=== PATIENT | female | born 1965 | race Caucasian/White ===

== ENCOUNTER → 2016-03-24 | Outpatient (CLI) | payer BC, MEDICARE ==
[2016-03-24 12:46] VITALS: BP 102/61; PULSE 78; RESP 16; TEMP 98.5
--- NOTE | 2016-03-25 21:53 | P.PN ---
Subjective This is follow-up visit for this patient with a history of chronic low back pain , and opioid tolerance ,patient had intrathecal pain pump implanted several years ago, and patient was seen on 03/11/2016, because patient was hearing , the alarm of intrathecal pain pump, and the pump was interrogated and it showed that the pump was stalled, and the recommendation from the [employer] was to replace the intrathecal pain pump, and the pump was placed on the minimal dose, patient supposed to have intrathecal pain pump replaced/revision on 03/28/2016, but patient reported that for personal reasons , she cannot do it at that date and she wanted to be scheduled at different date, patient currently on fentanyl patch 50 g every 72 hours and Dilaudid 4 mg every 4 hours when necessary for breakthrough pain, patient reported , that after she placed the first fentanyl patch, she started feeling itching everywhere in her body (she has itching before she started the patch but the itching was increased ) and for this reason she removed the patch and she is currently using only Dilaudid 4 mg every 4-6 hours, patient reported that her pain with the current medication (Dilaudid 4 mg every 4 hours ) is well controlled, she denies any was thrown symptoms, she denies any rhinorrhea or abdominal pain or diarrhea, she feels good, and her mood is normal, she denies any muscle aches, she denies any irritability, and she feels that her pain is very well controlled with the Dilaudid only, patient preferred to delay her intrathecal pain pump revision and she is hoping that maybe she could stop using intrathecal pain medication, although this isn't patient will be seen in the pain clinic in 4 weeks, at that time if patient feels good we can delay the intrathecal pain pump revision, round before we do the revision we have to do that the dye study to check the patency of the intrathecal catheter, I discussed with the patient the risk of catheter occlusion, and patient understood the risk of delaying the intrathecal pain pump revision The intrathecal pain pump interrogated again and it showed patient currently on minimal infusion rate which is spent in in 0.59 g per day and bupivacaine 0.076 mg per day and baclofen 0.47 g per day and patient had residual volume 23.4 ml (the residual volume on 1226 was 23.5 mL ) Objective - Vital Signs Vital signs: Vital Signs Temp 98.5 F 03/24/16 12:34 Pulse 78 03/24/16 12:34 Resp 16 03/24/16 12:34 BP 102/61 03/24/16 12:34 Pulse Ox
== END | disposition home or self-care (01) ==
LOC: PNWHC3 11:56
PROVIDERS: ATTEND Specialist
DX: M54.5 Low back pain (principal); Z96.89 Presence of other specified functional implants; Z79.899 Other long term (current) drug therapy; Z79.891 Long term (current) use of opiate analgesic
CPT/HCPCS: 99211

== ENCOUNTER → 2016-05-05 | Outpatient (CLI) | payer MEDICARE ==
[2016-05-05 12:37] VITALS: BP 116/69; PULSE 90; RESP 18
--- NOTE | 2016-05-06 12:09 | P.PN ---
Subjective This is follow-up visit for this patient with a history of severe and chronic low back pain secondary to lumbar failed back surgery syndrome, opioid tolerance, patient had intrathecal pain pump implanted several years ago, and recently she developed malfunction of intrathecal pain pump on currently patient receiving fentanyl patch 50 g every 72 hours and Dilaudid 4 mg every 6 hours when necessary for breakthrough pain, and patient getting the minimum allowable dose of intrathecal medication to keep the intrathecal catheter patent , and to prevent closure of the intrathecal catheter, patient is still hesitant to have intrathecal pain pump revision, especially this period , because she has a lot of family issues prevented her from having any surgery, her mom recently diagnosed with cancer, and she has to take care of her mom, for this reason she preferred to continue to have the current pain medication, she denies any side effects of the medication and she reported the current regimen is helping her to control her pain, denies excessive drowsiness or sleepiness, denies suicidal ideation, and reports that the current pain medication is helping To control the pain and improve activity of daily living Physical Examinations : 1-Constitutiona : Cooperative , not in acute distress . 2-HEENT : nech ; supple , no Lymphadenopathy , no Thyromegaly , normal thyroid size . eyes : no ptosis , no icterus, no photophobia . ENT : normal of hearing , normal oropharynx , no Thrush . 3- Respiratory : Chest clear to auscultations Bilaterally , no wheezing , no Rhonchi . 4- Cardiovascular : regular rate and rhythem , S1 , S2 , no S3 , no S4. 5- Gastrointestinal : abdomen soft no tenderness , bowel sounds positive all four quadrents , no organomegally . 6- Genitourinary : Defferred . 7- neurologic : Cranial nerve II to XII intact , no focal neurological deffecit . 8-psychatric : alert , oriented X 3 , appropriate affect , intact judgment and insight . 9-Lymphatic : no Lymphadenopathy . 10- musculoskeltal : exams of the cervical spine = motor strength normal bilateral upper extremities facet loading test cervical area positive. exams of the Lumber spine = motor strength lower extremities ,thigh and legs .5/5 deep tendon reflexes : normal Knee Jerk , normal ankle Jerk . lumber facet Loading Test positive strait leg raising test positive at 30 degree , RT ,LT , Fabere test positive RT and positive LT . Range of motion: Range of motion in flexion of the lumbar spine 30 degrees Range of motion range of motion of extension of the lumbar spine 10 Sever tenderness over the Sacroiliac joint on the Right , and Left side Assessment and plan = Failed back surgery syndrome, malfunction of intrathecal pain pump, patient getting no intrathecal pain medication - chronic and current use of high-risk medication (Opioids). The patient was counseled about risk of opioid use, psychological risk associated with opioids and was orally counseled to not overuse , divert,or sell dictations to take medications as prescribed only , and to restore medication in safe location , and the patient counseled against driving while using narcotic medications, and also not to use alcohol or any illicit recreational drugs, the patient's verbalized understanding that the lack of compliance will result in failure to renew narcotic prescription and possible discharge from the clinic - diagnoses, prognosis, and treatment options including but not limited to physical therapy, surgical interventions, interventional therapies , and medication management including narcotics and adjuvant medication were discussed with the patient and all The questions answered -medication management =1-fentanyl patch 50 g every 72 hours dispense 10 with one refill 2-Dilaudid 4 mg every 6 hours dispensed 120 with one refill -procedure= revision of intrathecal pain pump and patient is ready to have the surgical intervention Objective - Vital Signs Vital signs: Vital Signs Temp Pulse 90 05/05/16 12:32 Resp 18 05/05/16 12:32 BP 116/69 05/05/16 12:32 Pulse Ox 97 05/05/16 12:32 Intake & Output 05/05/16 05/06/16 05/06/16 18:59 06:59 18:59 Weight 65.771 kg
== END | disposition home or self-care (01) ==
LOC: PNWHC3 12:06
PROVIDERS: ATTEND Specialist
DX: M96.1 Postlaminectomy syndrome, not elsewhere classified (principal); T85.615A Breakdown (mechanical) of other nervous system device, implant or graft, initial encounter; Z88.5 Allergy status to narcotic agent; Z79.891 Long term (current) use of opiate analgesic
CPT/HCPCS: 99211

== ENCOUNTER → 2016-07-28 | Outpatient (CLI) | payer MEDICARE ==
[2016-07-28 12:36] VITALS: BP 115/74; PULSE 87; RESP 16; TEMP 97.4
--- NOTE | 2016-07-29 14:14 | P.CONS ---
History of Present Illness - Reason for Consult Consult date: 07/28/16 - History of Present Illness This is follow-up visit for this 51 years old female chronic history of severe low back pain , Diagnosed with failed back surgery syndrome , and opioid tolerance , had intrathecal pain pump implanted several years ago , and recently she had malfunction of the pump , patient was not ready to have intrathecal pain pump replaced because she had family issues ,and we put patient on minimal infusion of the intrathecal pain pump, and I started patient on fentanyl patch 50 g every 72 hours and Dilaudid 4 mg every 4 hours, she reported that the current medication is not helping to control her pain , she had pain level was 7-8/10 , and patient wished to proceed with the replacement of the intrathecal pain pump , Past Medical History Past Medical History: Musculoskeletal Disorder Additional Past Medical History / Comment(s): migraines post procedure, chronic back pain, numbness and tingling down legs,deg. discs disease History of Any Multi-Drug Resistant Organisms: None Reported Past Surgical History: Appendectomy, Back Surgery, Tubal Ligation Additional Past Surgical History / Comment(s): exp. laparoscopy, oophorectomy and tubes removed,pain pump implant Past Anesthesia/Blood Transfusion Reactions: Motion Sickness Past Psychological History: Anxiety, Depression Smoking Status: Current every day smoker Past Alcohol Use History: Occasional Additional Past Alcohol Use History / Comment(s): smoker 40 years 1/2 ppd Past Drug Use History: None Reported - Past Family History Mother Additional Family Medical History / Comment(s): borderline diabetic Father Family Medical History: Cancer Additional Family Medical History / Comment(s): Medications and Allergies Home Medications Medication Instructions Recorded Confirmed Type Multivitamins, Thera [Multivitamin] 1 tab PO DAILY 08/17/13 07/28/16 History Sertraline HCl [Zoloft] 200 mg PO DAILY 08/08/15 07/28/16 History Allergies Allergy/AdvReac Type Severity Reaction Status Date / Time iodine Allergy Mild Unknown Verified 07/28/16 12:22 IVP DYE Allergy Mild Unknown Uncoded 07/28/16 12:22 Physical Exam Physical Examinations : 1-Constitutiona : Cooperative , not in acute distress . 2-HEENT : nech ; supple , no Lymphadenopathy , normal thyroid size . eyes : no ptosis , no icterus, no photophobia . ENT : normal of hearing , normal oropharynx , no Thrush . 3- Respiratory : Chest clear to auscultations Bilaterally , no wheezing , no Rhonchi . 4- Cardiovascular : regular rate and rhythem , S1 , S2 , no S3 , no S4. 5- Gastrointestinal : abdomen soft no tenderness , bowel sounds positive all four quadrents , no organomegally . 6- Genitourinary : Defferred . 7- neurologic : Cranial nerve II to XII intact , no focal neurological deffecit . 8-psychatric : alert , oriented X 3 , appropriate affect , intact judgment and insight . 9-Lymphatic : no Lymphadenopathy . 10- musculoskeltal : , exams of the Lumber spine = normal moter stegnth lower extremities ,thigh and legs .5/5 deep tendon reflexes : normal Knee Jerk , normal ankle Jerk . positive lumber facet Loading Test strait leg raising test positive at 30 degree , RT ,LT , Fabere test positive RT and positive LT . Assessment and Plan Plan: Assessment and plan=1-Failed back surgery syndrome and lumbar area. 2-malfunction of intrathecal pain pump, and the pain pump needs to be replaced, I have to confirm patency of the intrathecal catheter Have to do the dye study before we can proceed with the replacement of the pump, and this will be sure that the sitter is not the block Or clotted at the tip , She will be given prescription refill for fentanyl patch 50 g every 72 hours dispense 10 with one refill and Dilaudid 4 mg every 4 hours dispense 180 with 1 refill she will be seen the day of the dye study, if the catheter is patent and I will schedule patient to have intrathecal pain pump replaced Time with Patient: Less than 30
== END | disposition home or self-care (01) ==
LOC: PNWHC3 12:05
PROVIDERS: ATTEND Specialist
DX: T85.615A Breakdown (mechanical) of other nervous system device, implant or graft, initial encounter (principal); F32.9 Major depressive disorder, single episode, unspecified; F41.9 Anxiety disorder, unspecified; F17.200 Nicotine dependence, unspecified, uncomplicated; Z79.899 Other long term (current) drug therapy; Z91.048 Other nonmedicinal substance allergy status
CPT/HCPCS: 99211

== ENCOUNTER → 2016-09-22 | Outpatient (CLI) | payer MEDICARE ==
[~2016-09-22] MED LIST: LACTATED RINGERS 1,000 ML IV SCH
[2016-09-22 13:15] VITALS: PULSE 73; RESP 16
--- NOTE | 2016-10-02 09:03 | P.PN ---
Progress Note - Text Patient returns for followup for chronic back pain with radiation to legs, with intrathecal pump in place. Patient has an intrathecal pump which has been malfunctioning and severely overdosed her several months ago, and it is now on minimal settings. Patient continues on fentanyl patch and Dilaudid which is helping to some extent without side effects, but 50 mcg patch is very expensive for her and she is cutting them in half. Patient denies adverse drug effects from medications. Today, pt denies new-onset weakness, bowel/bladder incontinence, or any other signs or symptoms of cauda equina syndrome. There are no signs of acute intoxication, and no indications of medication diversion or overuse. In addition to above, 13-point review of systems is also negative for chest pain , shortness of breath, changes in vision, changes in hearing, new onset weakness , abdominal pain, diarrhea, extreme fatigue, malaise, fever, skin changes, homicidal or suicidal ideation, or bowel or bladder incontinence. Vital Signs: Reviewed in EMR Gen: WDWN, AAOx3, NAD HEENT: NCAT, EOMI, hearing grossly normal Pulm: resp unlabored Abd: soft, NT, ND Neck: supple, trachea midline ROM in flexion lumbar spine: reduced ROM in extension lumbar spine: reduced Lumbar paravertebral tenderness: + Facet loading: + bilateral SI joint tenderness: + Sam's test: neg Straight leg raise: + R side Neuro: CN II-XII grossly intact, muscle strength lower extremities PRESERVED Imaging: Reviewed in EMR Assessment: 1. lumbar PLPS 2. intrathecal pump in situ 3. chronic pain syndrome Plan: 1. Explanation: Opioid and psychological risk scores were reviewed. Diagnoses , prognoses, and multiple treatment options including but not limited to physical therapy, interventional therapies, adjuvant medical therapies, narcotic medication therapies, and surgery were discussed with the patient and all questions were answered to the patient's satisfaction. 2. Opioid agreement: Patient has previously signed narcotic agreement, and was orally counseled to not overuse, abuse, divert, or cell medications, and to take them as prescribed by only 1 healthcare provider. The patient was also counseled to store opioid medications in a safe and preferably locked location. Patient was also counseled against driving or operating heavy equipment while using narcotic medications and also to not use alcohol or any illicit or recreational drugs. The patient verbalized understanding that lack of compliance with any of the above and likely result in failure to renew narcotic prescriptions, possible discharge from the clinic, and possible legal ramifications thereafter if indicated. 3. Counseling: The patient was counseled extensively on SMOKING CESSATION, BODY MASS INDEX, EXERCISE. Specifically, the patient was instructed regarding the importance of smoking cessation, weight control, and exercise in the context of both chronic pain and overall health. 4. Procedures: IT pump myelogram next week 5. Consultations: None 6. Investigations: None 7. Medications: Dilaudid script given, patient to bring back fentanyl patch script at procedure appointment for further discussion 8. Disposition: f/u for dye study as ordered; if catheter patent, Dr. Walker will replace pump himself; if there are any catheter-related issues, patient will go to neurosurgery for pump revision.
== END | disposition home or self-care (01) ==
LOC: PNWHC3 12:53
PROVIDERS: ATTEND Anesthesiology
DX: G97.1 Other reaction to spinal and lumbar puncture (principal); G89.4 Chronic pain syndrome; Z97.8 Presence of other specified devices; Z79.899 Other long term (current) drug therapy
CPT/HCPCS: 99211

== ENCOUNTER 2016-10-02 08:40 | Day surgery (SDC) | payer MEDICARE ==
[2016-10-01 08:37] VITALS: BMI 28.3
[2016-10-02] MEDS ORDERED: LIDOCAINE 1% 20 ML VIAL (10MG/ML) FOR IV START INTRADERMA ONE (09:00)
[2016-10-02] MEDS ORDERED: LACTATED RINGERS 1,000 ML IV ONE (09:00)
[2016-10-02 09:04] LABS: Glucose,Whole Blood 158 mg/dL (75-99)
[2016-10-02 09:11] VITALS: RESP 16; TEMP 98.4
--- NOTE | 2016-10-02 09:47 | FL ---
Fluoroscopy History: Pain pump IV dye study Pain pump IV dye study. Dr. Hopkins. 41 sec fluoro. 4 images saved.
[2016-10-02] MEDS ORDERED: IV FLUID CONTINUATION 1,000 ML IV ONE (09:59)
[2016-10-02 10:20] VITALS: BP 98/54; PULSE 69
[2016-10-02] MEDS ORDERED: LACTATED RINGERS 1,000 ML IV SCH (10:45)
--- NOTE | 2016-10-02 13:05 | P.PCN ---
Date of Procedure: 10/02/16 Preoperative Diagnosis: Postoperative Diagnosis: Procedure(s) Performed: Implants: Surgeon: Jd Hopkins Pathology: none sent Condition: stable Disposition: PACU Indications for Procedure: Operative Findings: Description of Procedure: Preoperative diagnosis: 1- lumbar PLPS 2- S/P intrathecal pump placement, questionable overdose in the past Postoperative diagnosis: 1- Functional intrathecal delivery system 2- Catheter tip located in the intrathecal space PROCEDURE INDICATION: This is a 51-year-old female with an intrathecal pump in place currently receiving fentanyl, bupivacaine, and baclofen at minimum rate ( fentanyl 0.592 mcg/day) secondary to questionable IT pump overdose several months ago. Procedure was done today to evaluate the patency of the catheter as intrathecal pump replacement is planned at this time. Patient does not use any blood thinning medications. Anesthesia: Conscious sedation with Versed only PROCEDURE DESCRIPTION: The patient was seen and identified in the preoperative area. Risks, benefits, complications, and alternatives were discussed with the patient (including but not limited to incomplete pain relief, bleeding, infection, nerve damage, and allergies to medications), the patient agreed to proceed with the procedure and signed the consent after all questions were answered. Patient was taken to the OR and time out was completed to verify proper patient , position, laterality of pain, and allergies. Pt was placed in the prone position and the site over the IT pump was prepped with Chloraprep and draped sterilely. IV was started. Vital signs remained stable throughout the procedure. The pump study was done first. A fluoroscopic picture was taken and saved. Under live fluoroscopy, the rotors were seen to be moving appropriately and a rotation noted and saved, demonstrating normal functioning. Subsequently, the side port was accessed under sterile technique. About 1 ml of CSF was withdrawn through the side port. Subsequently, 5 ml of water soluble dye , omnipaque 300 was injected and an excellent myelogram was observed suggestive of appropriate location of the catheter tip, which was on the left side of the T11 vertebral level in the AP view; myelogram was noted in both AP and lateral views. A priming bolus of 0.123 ml was administered to clear the catheter of dye and the rate was again reset to minimum rate, i.e. fentanyl 0.592 mcg/day. DISPOSITION: The patient was placed in a supine position and transferred to the recovery area in a stable condition for observation and was discharged from the recovery room after meeting discharge criteria. Home discharge instructions given to the patient by the staff. The patient was reexamined prior to discharge and there were no issues. The patient will schedule a follow up in the clinic in 2-4 weeks; she will be rescheduled for a pump replacement in 4-6 weeks pending physician availability.
== END 2016-10-02 10:47 | disposition home or self-care (01) ==
LOC: ORPAIN 08:40
PROVIDERS: ATTEND Anesthesiology
DX: T85.890A Other specified complication of nervous system prosthetic devices, implants and grafts, initial encounter (principal); F45.8 Other somatoform disorders; G89.4 Chronic pain syndrome; M54.9 Dorsalgia, unspecified; Z79.891 Long term (current) use of opiate analgesic
CPT/HCPCS: 95990; 99152; 99153; J2250; Q9965

== ENCOUNTER 2016-11-11 10:57 | Day surgery (SDC) | payer MEDICARE ==
[2016-11-04 15:14] VITALS: BMI 28.3
[~2016-11-11 10:57] MED LIST changes: +DEXAMETHASONE SOD PHOSPHATE 10 MG/ML 1 ML VIAL IV ONE; +HYDROmorphone 1 MG/ML 1 ML SYRINGE IVP PRN; -LACTATED RINGERS 1,000 ML IV SCH; +LIDOCAINE 1% 20 ML VIAL (10MG/ML) FOR IV START INTRADERMA PRN; +ONDANSETRON 4 MG/2 ML VIAL IVP ONE; +SCOPOLAMINE 1.5MG/72HR PATCH TRANSDERM ONE
[2016-11-11] MEDS: LACTATED RINGERS 1,000 ML IV SCH ×2 (11:23→15:39)
[2016-11-11 11:24] LABS: Glucose,Whole Blood 89 mg/dL (75-99)
[2016-11-11] MEDS ORDERED: ePHEDrine SULFATE/0.9% NACL/PF 50 MG/5 ML SYRINGE IV ONE (12:45)
[2016-11-11] MEDS ORDERED: LIDOCAINE 1% INJ 10MG/ML (20 ML MDV) ONE (12:45)
[2016-11-11] MEDS ORDERED: fentaNYL (PF) 50 MCG/ML 2 ML AMP ONE (12:45)
[2016-11-11] MEDS ORDERED: PROPOFOL 10 MG/ML 20 ML VIAL IV ONE (12:45)
[2016-11-11] MEDS ORDERED: MIDAZOLAM 2 MG/2 ML VIAL ONE (12:45)
[2016-11-11] MEDS ORDERED: HYDROmorphone (PF) 1 MG/ML ONE (12:45)
[2016-11-11] MEDS ORDERED: SUCCINYLCHOLINE CHLORIDE 100 MG/5 ML SYR IV ONE (12:45)
[2016-11-11] MEDS ORDERED: BUPIVACAINE-EPI 0.5%-1:200,000 10 ML VIAL SQ ONE ×2 (12:53)
[2016-11-11] MEDS ORDERED: ceFAZolin 1,000 MG in SODIUM CHLORIDE 0.9% 1,000 ML IRRIGATION ONE (12:54)
[2016-11-11] MEDS ORDERED: LIDOCAINE 2% INJ 20 MG/ML SQ ONE ×2 (12:54)
[2016-11-11] MEDS ORDERED: ceFAZolin 2 GM in SODIUM CHLORIDE 0.9% 100 ML IVPB ONE (13:00)
[2016-11-11 14:28] VITALS: RESP 16; TEMP 97.8
[2016-11-11 16:09] VITALS: BP 111/64; PULSE 75
--- NOTE | 2016-11-13 13:18 | P.OP ---
Date of Procedure: 11/11/16 Preoperative Diagnosis: malfunctioning intrathecal pump Postoperative Diagnosis: same Procedure(s) Performed: intrathecal pump replacement Implants: Medtronic 40 ml intrathecal pump Anesthesia: JAIDAA Surgeon: Jd Hopkins Estimated Blood Loss (ml): 5 Pathology: none sent Condition: stable Disposition: PACU Indications for Procedure: Ms. Solis is a 51-year-old female with a history of a malfunctioning intrathecal pump requiring replacement. The patient presents for this intrathecal pump replacement by surgical approach today. She does not use any blood thinning medications and denies any recent infections colds cough or fevers. Operative Findings: Description of Procedure: The patient was seen and identified in the preoperative area. Risks, benefits, complications, and alternatives were discussed with the patient (including but not limited to incomplete pain relief, failure of the pump to work, inadvertent damage to the intrathecal catheter, bleeding, infection, nerve damage, and allergic reactions to anesthetics and other medications), and the patient agreed to proceed with the procedure and signed the consent after all questions were answered. The location of the in situ pump was palpated in the left buttock and was marked preoperatively. The patient was taken to the operating room and placed under general endotracheal anesthesia by the anesthesia team and 2 g of cefazolin were administered. The patient was then moved into a prone position on the operating table and all pressure points were padded and checked with assistance of the anesthesia and operating room staff. The skin area over the pump in the left buttock was sterilely prepped with ChloraPrep 3 and draped in the usual sterile fashion. The previous transverse incision over the pump pocket was noted. After localization with 10 ml of combination of 2% lidocaine plain with 0.5% bupivacaine with epinephrine 1:200,000, a 10 cm transverse incision was made over the previous incision. Electrocautery was used to dissect down to the level of the intrathecal pump, and the angiocatheter was avoided as soon as it could be visualized. The pump was already disconnected from the retention sutures and was removed from the pocket without difficulty. At this point the pump was cleaned and disconnected from the intrathecal catheter sutureless connector. The interthecal catheter was noted in the pump pocket to be grossly intact. Once the pump was disconnected, there was free flow cerebrospinal fluid coming from the catheter even prior to aspiration. The pump pocket was irrigated copiously with sterile saline combined with Cefazolin irrigation. The new Medtronic 40 mL SynchroMed II intrathecal pump was introduced sterilely onto the field and the sterile water inside the pump was aspirated by the surgical processor. The new compounded solution containing fentanyl, bupivacaine, and baclofen was then used to fill the intrathecal pump. The new pump was then attached again to the catheter via the sutureless connector. Aspiration at the side port demonstrated positive backflow of cerebrospinal fluid. The pump pocket was again copiously irrigated and the pump was replaced with the side port facing medially at approximately the 2 o'clock position. The intrathecal catheter was carefully tucked underneath the pump to avoid injury during closure. Using a three layer closure, the deeper tissue was closed with 0 Vicryl interrupted sutures, a running 3-0 Monocryl subcuticular layer, and the skin with another running 3-0 Monocryl stitch. Between each stitch, care was taken to examine that the catheter was not caught in or compressed by any of the stitches. Another 10 mL of the previous local anesthetic solution was injected around the incision. The area was thoroughly cleaned and dressed with Steri- Strips, sterile gauze, and Tegaderm. DISPOSITION: After the procedure was completed, the patient was turned back over into a supine position and awakened by the anesthesia team. She tolerated the procedure well and was taken to the recovery room where she had an uneventful course and was discharged home after evaluation revealed no weakness or other issues, and also after appropriate instructions were given to the patient and her (including to discontinue her fentanyl patch). The patient was prescribed Dilaudid 4 mg #150 as a continuation of her previous dose and for postoperative pain. She was also given a prescription for Levaquin 750 mg daily with a 10 day supply. She will follow-up in approximately 1 week for evaluation of her wound and escalation of her intrathecal pump dose, which is currently at fentanyl 25 g per day, baclofen 20 micrograms per day, and bupivacaine 3.2 mg/day.
== END 2016-11-11 16:29 | disposition home or self-care (01) ==
LOC: OR 10:57
PROVIDERS: ATTEND Anesthesiology
DX: T85.695A Other mechanical complication of other nervous system device, implant or graft, initial encounter (principal); M54.5 Low back pain; F41.9 Anxiety disorder, unspecified; F32.9 Major depressive disorder, single episode, unspecified; Z79.891 Long term (current) use of opiate analgesic; Z79.899 Other long term (current) drug therapy; Z91.041 Radiographic dye allergy status; Z87.891 Personal history of nicotine dependence
CPT/HCPCS: 62362; J2001 ×2; J2250; J1100; J0690 ×2; J2405; J3010; J1170; J0330; J2704

== ENCOUNTER → 2016-11-18 | Outpatient (CLI) | payer MEDICARE ==
[2016-11-18 11:50] VITALS: BP 92/55; PULSE 89; RESP 18
--- NOTE | 2016-11-18 12:09 | P.PN ---
Progress Note - Text This is a 51-year-old female with intrathecal infusion of fentanyl, baclofen, and bupivacaine through subcutaneous pump that was replaced about one week ago and the OR. The incision looks clean with no discharge and no erythema and the Steri-Strips are still on the incision. The patient's pain is a 3 out of 10 with no movement and it increases significantly with activities. Today I will give the patient's a bolus of fentanyl 5 mics over 1 hour and I will increase the fentanyl rate to 29 mics a day also will ask her to stop using the fentanyl patch but she can continue using Dilaudid. I will bring the patient back in one month for reevaluation and the plan will be to go down on the Dilaudid pills as much as we can depending on the patient's intensity of pain. The patient today looks alert oriented 3 in no apparent distress she has normal insight and judgment she does not show any oversedation symptoms. We will see the patient next month for reevaluation.
== END ==
LOC: PNWHC3 11:29
PROVIDERS: ATTEND Anesthesiology
DX: R52 Pain, unspecified (principal); Z79.899 Other long term (current) drug therapy
CPT/HCPCS: 99211

== ENCOUNTER → 2016-12-08 | Outpatient (CLI) | payer MEDICARE ==
[2016-12-08 12:30] VITALS: BP 103/71; PULSE 70; RESP 16; TEMP 98.2
--- NOTE | 2016-12-08 12:57 | P.PN ---
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 Patient is requesting more Dilaudid pills today. ANESTHESIA: None. CONDITION: Stable. INDICATION: This is a 51-year-old patient with a long history of chronic pain secondary to PLPS and with a long history of opioid tolerance. Patient previously had an intrathecal pump placed and presents for pump adjustment today. Patient denies any side effects of the intrathecal medication, including new weakness, new numbness, excessive drowsiness or sleepiness, nausea/vomiting , weight gain, or night sweats. Patient also denies suicidal ideation, and reports that the current pain medication is helping control the chronic pain and improve the patient's activities of daily living. DESCRIPTION: The intrathecal pain pump was analyzed and showed that the patient currently has reservoir volume of [31.6] mL. The patient is receiving intrathecal fentanyl PF at concentration [94] mcg/ ml, and bupivacaine PF at concentration [12] mg/ml, and baclofen [75] mcg/ml. Patient receiving daily dose of fentanyl [29] mg/day, bupivacaine [3.5] mg/ day, and baclofen [22] mcg/day. Today, we will escalate the pump with an increase of 72% back to her January 2016 dose, namely fentanyl [50] mg/day, bupivacaine [6.39] mg/day, and baclofen [39.939] mcg/day. Alarm date is 02/01/17. The patient is using some oral medications as well, specifically Dilaudid 4 mg po q4-6h prn pain orally for breakthrough pain #150 with one refill. The patient was given two months' worth of this medication. The patient will follow up with the pain clinic in 2 months for refill and further evaluation. Given the significant increase in the patient's intrathecal dose today, I did instruct the patient to drive straight home and to have her monitor her for excessive sedation or respiratory depression over the next 24-48 hours and to immediately call our clinic if there are any concerns. She verbalized understanding of this.
== END | disposition home or self-care (01) ==
LOC: PNWHC3 11:48
PROVIDERS: ATTEND Anesthesiology
DX: G97.1 Other reaction to spinal and lumbar puncture (principal)
CPT/HCPCS: 62368; G0463; 99211

== ENCOUNTER → 2017-01-21 | Day surgery (SDC) | payer MEDICARE ==
[2017-01-21 12:27] VITALS: BP 125/80; PULSE 100; RESP 18
--- NOTE | 2017-01-21 13:28 | P.PCN ---
Date of Procedure: 01/21/17 Procedure(s) Performed: OPERATION: Intrathecal pain pump analysis, programming and reprogramming, and intrathecal pain pump refill. PREOPERATIVE DIAGNOSES: 1. near empty intrathecal pain pump time for refill. 2. opioid tolerance 3. failed back surgery syndrome lumbar area POSTOPERATIVE DIAGNOSES: 1. near empty intrathecal pain pump time for refill. 2. opioid tolerance 3. failed back surgery syndrome lumbar area ANESTHESIA: None. CONDITION: Stable. Description of the procedure; Intrathecal pain pump analysed ,it showed patient currently had reservoir volume 8.2 mL. The patient is receiving medication fentanyle 94 mcg / ml, and bupivacaine concentration 12 mg/ml. , Baclofen 75 micrograms per mL Patient receiving daily dose of fentanyl 50 g/day and bupivacaine 6.3 mg/ day. , Baclofen 39.9 mcg /day Pain is well controlled , patient using medication for breakthrough pain [ dilaudid 4 mg] orally . The location of the pump ( Left Buttuck ) Prepped with chlorhexidine x3 , then using 22-gauge needle [employer] kit advanced through the pump port, Total of [ 8 ] ml removed from the pump, the pump refills with the new medication total volume [40 ] ml . The concentration fentanyl 94 mcg /ml , and the bupivacaine concentration 12 mg/ml., Baclofen 75 g/ml The patient will continue to see the daily dose fentanyl and 60 g/day and bupivacaine bupivacaine 7.6 mg/day, baclofen 47 mcg /day , and this is equal to 20% increase the dose was questions reported that her VAS usually 4-5 , and also patient given prescription refill for Dilaudid 4 mg 1 tablet by mouth every 4 hours dispense 150 with 1 refill
== END ==
LOC: PNWHC3 11:50
PROVIDERS: ATTEND Specialist
DX: Z45.1 Encounter for adjustment and management of infusion pump (principal); M96.1 Postlaminectomy syndrome, not elsewhere classified; Z79.891 Long term (current) use of opiate analgesic
CPT/HCPCS: 62370

== ENCOUNTER → 2017-03-18 | Day surgery (SDC) | payer MEDICARE ==
--- NOTE | 2017-03-18 15:17 | P.PN ---
Progress Note - Text Progress Note Date: 03/18/17 PROCEDURE: Intrathecal pain pump analysis, programming and reprogramming, and intrathecal pain pump refill PREOPERATIVE DIAGNOSES: 1. near empty intrathecal pain pump time for refill. 2. opioid tolerance 3. failed back surgery syndrome, lumbar area POSTOPERATIVE DIAGNOSES: 1. near empty intrathecal pain pump time for refill. 2. opioid tolerance 3. failed back surgery syndrome, lumbar area ANESTHESIA: None. CONDITION: Stable. INDICATION: This is a 51-year-old patient with a long history of chronic pain secondary to PLPS and with a long history of opioid tolerance. Patient previously had an intrathecal pump placed, which is now close to empty, and patient presents for refill today. Patient denies any side effects of the intrathecal medication, including new weakness, new numbness, excessive drowsiness or sleepiness, nausea/vomiting, weight gain, or night sweats. Patient also denies suicidal ideation, and reports that the current pain medication is helping control the chronic pain and improve the patient's activities of daily living. DESCRIPTION: The intrathecal pain pump was analyzed and showed that the patient currently has reservoir volume of [4.3] mL. The patient is receiving intrathecal fentanyl PF at concentration [94] mcg/ ml, and bupivacaine PF at concentration [12] mg/ml, and baclofen [75] mcg/ml. Patient receiving daily dose of fentanyl [49.9] mg/day, bupivacaine [6.38] mg /day, and baclofen [39.6] mcg/day. The location of the pump (left buttock) was prepped with chlorhexidine x3. Then , the 22-gauge needle from the [employer] kit was advanced through the pump port. Total of [4.5] ml was removed from the pump, and it was refilled with the new medication total volume of [40] ml of a solution containing intrathecal fentanyl PF at concentration [94] mcg/ ml, and bupivacaine PF at concentration [12] mg/ml, and baclofen [75] mcg/ml. The patient will continue with daily doses of fentanyl [50] mg/day, bupivacaine [6.4] mg/day, and baclofen [39.6] mcg/day. The patient is using some oral medications as well, specifically Dilaudid 4 mg po q4h prn pain #150 orally for breakthrough pain. The patient was given two months' worth of this medications. The patient will follow up with the pain clinic in 2 months for refill and further evaluation.
[2017-03-18 23:29] VITALS: BP 119/81; PULSE 74; RESP 16
== END ==
LOC: PNWHC3 13:32
PROVIDERS: ATTEND Anesthesiology
DX: G89.29 Other chronic pain (principal); M96.1 Postlaminectomy syndrome, not elsewhere classified; Z79.891 Long term (current) use of opiate analgesic
CPT/HCPCS: 62370

== ENCOUNTER → 2017-05-06 | Day surgery (SDC) | payer MEDICARE ==
[2017-05-06 13:58] VITALS: BP 107/74; PULSE 80; RESP 14
--- NOTE | 2017-05-06 14:22 | P.PN ---
Progress Note - Text Progress Note Date: 05/06/17 PROCEDURE: Intrathecal pain pump analysis, programming and reprogramming, and intrathecal pain pump refill PREOPERATIVE DIAGNOSES: 1. near empty intrathecal pain pump time for refill. 2. opioid tolerance 3. failed back surgery syndrome, lumbar area POSTOPERATIVE DIAGNOSES: 1. near empty intrathecal pain pump time for refill. 2. opioid tolerance 3. failed back surgery syndrome, lumbar area ANESTHESIA: None. CONDITION: Stable. INDICATION: This is a 52-year-old patient with a long history of chronic pain secondary to PLPS and with a long history of opioid tolerance. Patient previously had an intrathecal pump placed, which is now close to empty, and patient presents for refill today. Patient denies any side effects of the intrathecal medication, including new weakness, new numbness, excessive drowsiness or sleepiness, nausea/vomiting, weight gain, or night sweats. Patient also denies suicidal ideation, and reports that the current pain medication is helping control the chronic pain and improve the patient's activities of daily living. DESCRIPTION: The intrathecal pain pump was analyzed and showed that the patient currently has reservoir volume of [8.8] mL. The patient is receiving intrathecal fentanyl PF at concentration [94] mcg/ ml, and bupivacaine PF at concentration [12] mg/ml, and baclofen [75] mcg/ml. Patient receiving daily dose of fentanyl [60] mg/day, bupivacaine [7.66] mg/ day, and baclofen [47.9] mcg/day. The location of the pump (left buttock) was prepped with chlorhexidine x3. Then , the 22-gauge needle from the [employer] kit was advanced through the pump port. Total of [4.5] ml was removed from the pump, and it was refilled with the new medication total volume of [40] ml of a solution containing intrathecal fentanyl PF at concentration [94] mcg/ ml, and bupivacaine PF at concentration [12] mg/ml, and baclofen [75] mcg/ml. The patient will continue with increased 10% dose of fentanyl [66] mg/day, bupivacaine [8.3] mg/day, and baclofen [52] mcg/day. The patient is using some oral medications as well, specifically decrease Dilaudid to 4 mg po q6h prn pain #120 orally for breakthrough pain. The patient was given two months' worth of this medications. The patient will follow up with the pain clinic in 2 months for refill and further evaluation. As we continue to decrease the patient's oral medications and increase the medication in the pump, we will plan to increase the concentration of fentanyl at next visit to increase the time interval between refills.
== END ==
LOC: PNWHC3 13:33
PROVIDERS: ATTEND Anesthesiology
DX: G89.29 Other chronic pain (principal); M96.1 Postlaminectomy syndrome, not elsewhere classified; Z45.1 Encounter for adjustment and management of infusion pump; Z79.891 Long term (current) use of opiate analgesic
CPT/HCPCS: 62370

== ENCOUNTER → 2017-06-17 | Day surgery (SDC) | payer MEDICARE ==
[2017-06-17 13:36] VITALS: BP 116/75; PULSE 86; RESP 16
--- NOTE | 2017-06-17 13:51 | P.PCN ---
Date of Procedure: 06/17/17 Surgeon: Jd Hopkins Pathology: none sent Condition: stable Disposition: PACU Description of Procedure: PROCEDURE: Intrathecal pain pump analysis, programming and reprogramming, and intrathecal pain pump refill PREOPERATIVE DIAGNOSES: 1. near empty intrathecal pain pump time for refill. 2. opioid tolerance 3. failed back surgery syndrome, lumbar area POSTOPERATIVE DIAGNOSES: 1. near empty intrathecal pain pump time for refill. 2. opioid tolerance 3. failed back surgery syndrome, lumbar area ANESTHESIA: None. CONDITION: Stable. INDICATION: This is a 52-year-old patient with a long history of chronic pain secondary to PLPS and with a long history of opioid tolerance. Patient previously had an intrathecal pump placed, which is now close to empty, and patient presents for refill today. Patient denies any side effects of the intrathecal medication, including new weakness, new numbness, excessive drowsiness or sleepiness, nausea/vomiting, weight gain, or night sweats. Patient also denies suicidal ideation, and reports that the current pain medication is helping control the chronic pain and improve the patient's activities of daily living. DESCRIPTION: The intrathecal pain pump was analyzed and showed that the patient currently has reservoir volume of [10.6] mL. The patient is receiving intrathecal fentanyl PF at concentration [94] mcg/ ml, and bupivacaine PF at concentration [12] mg/ml, and baclofen [75] mcg/ml. Patient receiving daily dose of fentanyl [66] mg/day, bupivacaine [8.3] mg/ day, and baclofen [52] mcg/day. The location of the pump (left buttock) was prepped with chlorhexidine x3. Then , the 22-gauge needle from the [employer] kit was advanced through the pump port. Total of [10.5] ml was removed from the pump, and it was refilled with the new medication total volume of [40] ml of a solution containing intrathecal fentanyl PF at concentration [94] mcg/ ml, and bupivacaine PF at concentration [12] mg/ml, and baclofen [75] mcg/ml. The patient will continue with increased 20% dose of fentanyl [80] mg/day, bupivacaine [10] mg/day, and baclofen [63] mcg/day. The patient is using some oral medications as well, specifically decrease Dilaudid to 4 mg po q8h prn pain #90 orally for breakthrough pain. The patient was given two months' worth of this medications. The patient will follow up with the pain clinic in 2 months for refill and further evaluation. As we continue to decrease the patient's oral medications and increase the medication in the pump, we will plan to increase the concentration of fentanyl at next visit to increase the time interval between refills.
== END | disposition home or self-care (01) ==
LOC: PNWHC3 12:57
PROVIDERS: ATTEND Anesthesiology
DX: G89.29 Other chronic pain (principal); Z45.1 Encounter for adjustment and management of infusion pump; M96.1 Postlaminectomy syndrome, not elsewhere classified
CPT/HCPCS: 62370

== ENCOUNTER → 2017-07-29 | Day surgery (SDC) | payer MEDICARE ==
[2017-07-29 13:57] VITALS: RESP 18
[2017-07-29 14:00] VITALS: BP 136/63; PULSE 76
--- NOTE | 2017-07-29 14:30 | P.PN ---
Progress Note - Text Progress Note Date: 07/29/17 PROCEDURE: Intrathecal pain pump analysis, programming and reprogramming, and intrathecal pain pump refill PREOPERATIVE DIAGNOSES: 1. near empty intrathecal pain pump time for refill. 2. opioid tolerance 3. failed back surgery syndrome, lumbar area POSTOPERATIVE DIAGNOSES: 1. near empty intrathecal pain pump time for refill. 2. opioid tolerance 3. failed back surgery syndrome, lumbar area ANESTHESIA: None. CONDITION: Stable. INDICATION: This is a 52-year-old patient with a long history of chronic pain secondary to PLPS and with a long history of opioid tolerance. Patient previously had an intrathecal pump placed, which is now close to empty, and patient presents for refill today. Patient denies any side effects of the intrathecal medication, including new weakness, new numbness, excessive drowsiness or sleepiness, nausea/vomiting, weight gain, or night sweats. Patient also denies suicidal ideation, and reports that the current pain medication is helping control the chronic pain and improve the patient's activities of daily living. DESCRIPTION: The intrathecal pain pump was analyzed and showed that the patient currently has reservoir volume of [10.6] mL. The patient is receiving intrathecal fentanyl PF at concentration [94] mcg/ ml, and bupivacaine PF at concentration [12] mg/ml, and baclofen [75] mcg/ml. Patient receiving daily dose of fentanyl [80] mg/day, bupivacaine [10.2] mg/ day, and baclofen [63] mcg/day. The location of the pump (left buttock) was prepped with chlorhexidine x3. Then , the 22-gauge needle from the [id number] kit was advanced through the pump port. Total of [10.5] ml was removed from the pump, and it was refilled with the new medication total volume of [40] ml of a solution containing intrathecal fentanyl PF at concentration [130] mcg/ ml, and bupivacaine PF at concentration [12] mg/ml, and baclofen [75] mcg/ml. The patient will continue with previously increased dose of fentanyl [80] mcg/ day, bupivacaine [7.4] mg/day, and baclofen [46.2] mcg/day. The patient is using some oral medications as well, specifically continue Dilaudid at 4 mg po q8h prn pain #90 orally for breakthrough pain. The patient was given two months' worth of this medication. Patient is also getting Xanax from her PCP, so we will send an opioid/benzo letter to Dr. Kunz requesting that he taper or discontinue her benzodiazepines. The patient will follow up with the pain clinic in 2 months for refill and further evaluation. Of note, we will need to increase the bupivacaine and baclofen concentrations for next refill to increase back to the previous dose of 10.2 mg/day and baclofen 63 mcg/day.
== END ==
LOC: PNWHC3 13:10
PROVIDERS: ATTEND Anesthesiology
DX: G89.29 Other chronic pain (principal); M96.1 Postlaminectomy syndrome, not elsewhere classified; Z45.1 Encounter for adjustment and management of infusion pump; Z79.891 Long term (current) use of opiate analgesic; Z79.899 Other long term (current) drug therapy
CPT/HCPCS: 62370

== ENCOUNTER → 2017-08-31 | Outpatient (CLI) | payer MEDICARE ==
--- NOTE | 2017-08-31 09:23 | US ---
EXAMINATION TYPE: US pelvic complete DATE OF EXAM: 08/31/2017 COMPARISON: NONE CLINICAL HISTORY: 52-year-old female R10.31 Rt Lower Quad Pain. History of left oophorectomy TECHNIQUE: Transabdominal sonographic images of the pelvis were acquired. Date of LMP: 5 years ago FINDINGS: Uterus: Retroverted measuring 7.1 x 2.6 x 4.4 cm Endometrial Stripe: 0.8 cm, upper limits of normal for female without postmenopausal bleeding. Right Ovary: 2.0 x 1.2 x 1.6 cm, within normal limits. Left Ovary: Surgically absent No adnexal abnormality or cul-de-sac free fluid seen. IMPRESSION: 1. Endometrial stripe measures 8 mm which is upper limits of normal for a female without postmenopaus al bleeding. Consider 3 - 6 month follow-up ultrasound as a precautionary measure. 2. Left ovary not seen compatible with patient's history of prior oophorectomy. 3. No pelvic free fluid.
--- NOTE | 2017-08-31 09:25 | US ---
EXAMINATION TYPE: US abdomen complete DATE OF EXAM: 08/31/2017 COMPARISON: NONE CLINICAL HISTORY: 52-year-old female R10.31 Rt Lower Quad Pain. TECHNIQUE: Multiple sonographic images of the abdomen are obtained. FINDINGS: EXAM MEASUREMENTS: Liver Length: 15.3 cm Gallbladder Wall: 0.2 cm CBD: 3.6 mm Spleen: 10.0 cm Right Kidney: 9.6 x 4.4 x 5.2 cm Left Kidney: 10.7 x 6.3 x 5.6 cm Pancreas: Suboptimal visualization of the pancreatic tail secondary to shadowing from bowel gas. Liver: wnl Gallbladder: No abnormal distention, wall thickening, pericholecystic fluid, or shadowing calculi. Evidence for sonographic Duarte's sign: no CBD: wnl Spleen: wnl Right Kidney: No hydronephrosis Left Kidney: No hydronephrosis; dromedary hump incidentally noted Upper IVC: wnl Abd Aorta: wnl IMPRESSION: Limited visualization of the pancreatic tail. Otherwise, no specific sonographic abnormality of the a bdomen.
== END ==
LOC: RADUSWWP 07:41
PROVIDERS: ATTEND Family Medicine
DX: R10.31 Right lower quadrant pain (principal); Z90.721 Acquired absence of ovaries, unilateral
CPT/HCPCS: 76700; 76856

== ENCOUNTER → 2017-09-23 | Day surgery (SDC) | payer MEDICARE ==
[2017-09-23 12:41] VITALS: RESP 16
[2017-09-23 13:59] VITALS: BP 115/73; PULSE 83
--- NOTE | 2017-09-23 16:08 | P.PCN ---
Date of Procedure: 09/23/17 Procedure(s) Performed: PROCEDURE: Intrathecal pain pump analysis, programming and reprogramming, and intrathecal pain pump refill PREOPERATIVE DIAGNOSES: 1. near empty intrathecal pain pump time for refill. 2. opioid tolerance 3. failed back surgery syndrome, lumbar area POSTOPERATIVE DIAGNOSES: 1. near empty intrathecal pain pump time for refill. 2. opioid tolerance 3. failed back surgery syndrome, lumbar area ANESTHESIA: None. CONDITION: Stable. INDICATION: This is a 52-year-old patient with a long history of chronic pain secondary to PLPS and with a long history of opioid tolerance. Patient previously had an intrathecal pump placed, which is now close to empty, and patient presents for refill today. Patient denies any side effects of the intrathecal medication, including new weakness, new numbness, excessive drowsiness or sleepiness, nausea/vomiting, weight gain, or night sweats. Patient also denies suicidal ideation, and reports that the current pain medication is helping control the chronic pain and improve the patient's activities of daily living. Patient reported that she having severe pain in her low back area and she has some numbness and tingling in her left lower extremity, she denies any motor or sensory deficit, she reported that her pain level is always significantly high ,and the current medications is not helping enough to control her pain DESCRIPTION: The intrathecal pain pump was analyzed and showed that the patient currently has reservoir volume of [6.5] mL. The patient is receiving intrathecal fentanyl PF at concentration [130] mcg/ ml , and bupivacaine PF at concentration [12] mg/ml, and baclofen [75] mcg/ml. Patient receiving daily dose of fentanyl [80] mg/day, bupivacaine [7.3] mg/ day, and baclofen [46] mcg/day. The location of the pump (left buttock) was prepped with chlorhexidine x3. Then , the 22-gauge needle from the [employer] kit was advanced through the pump port. Total of [10.5] ml was removed from the pump, and it was refilled with the new medication total volume of [40] ml of a solution containing intrathecal fentanyl PF at concentration [130] mcg/ ml, and bupivacaine PF at concentration [16.7] mg/ml, and baclofen [103 ] mcg/ml. Patient complaining of increased numbness and left lower extremity , she is complaining of increased pain in the low back area, and she reported the current medication Dilaudid 4 mg 3 times a day is not helping to control her pain, and because patient had this increased numbness I will order MRI of the lumbar spine to evaluate if there is any etiology causing low back pain and also patient will be good candidate to have: Epidural steroid injection with lysis of epidural adhesions And because the new medication has higher concentration of the bupivacaine 16.7/ ml previous concentration in the old medication was 12 mg per mL, I will not increase the daily dose of fentanyl she is currently on 80 g per day , because of the have to increase the daily dose of fentanyl and this pain would have to increase the daily dose of bupivacaine and patient already getting numbness in her left lower extremity, and the numbness could be secondary to the bupivacaine Pain pump refilled with a new medication total volume 40 ML , and patient given prescription refill for Dilaudid 4 mg every 6 hours dispensed 120 and she will be scheduled to have caudal epidural steroid injection with lysis of epidural adhesions and she'll be scheduled to have MRI of the lumbar spine with and without contrast
== END ==
LOC: PNWHC3 12:03
PROVIDERS: ATTEND Specialist
DX: G89.29 Other chronic pain (principal); M96.1 Postlaminectomy syndrome, not elsewhere classified; Z45.1 Encounter for adjustment and management of infusion pump; Z79.891 Long term (current) use of opiate analgesic; G96.12 Meningeal adhesions (cerebral) (spinal)
CPT/HCPCS: 62370

== ENCOUNTER 2017-10-12 07:30 | Day surgery (SDC) | payer MEDICARE ==
[2017-10-05 14:43] VITALS: BMI 27.4
[~2017-10-12 07:30] MED LIST changes: -DEXAMETHASONE SOD PHOSPHATE 10 MG/ML 1 ML VIAL IV ONE; -HYDROmorphone 1 MG/ML 1 ML SYRINGE IVP PRN; +LACTATED RINGERS 1,000 ML IV SCH; -LIDOCAINE 1% 20 ML VIAL (10MG/ML) FOR IV START INTRADERMA PRN; -ONDANSETRON 4 MG/2 ML VIAL IVP ONE; -SCOPOLAMINE 1.5MG/72HR PATCH TRANSDERM ONE
[2017-10-12 08:04] VITALS: RESP 18; TEMP 97.8
[2017-10-12] MEDS ORDERED: LIDOCAINE 1% 20 ML VIAL (10MG/ML) FOR IV START INTRADERMA ONE (08:06)
--- NOTE | 2017-10-12 08:56 | P.PCN ---
Date of Procedure: 10/12/17 Surgeon: Vernon Torres Pathology: none sent Condition: stable Disposition: PACU Description of Procedure: Date of Procedure: PREOP DIAGNOSIS: Lumbar postlaminectomy syndrome. POSTOP DIAGNOSIS: Lumbar postlaminectomy syndrome. PROCEDURE: Caudal epidural steroid injection with epidurolysis under fluoroscopic guidance ANESTHESIA: Local with 1% lidocaine; IV moderate conscious sedation EBL: Minimal. PROCEDURE INDICATION: The patient with post-laminectomy syndrome with low back pain and radiculopathy radiating down in both legs, here for a caudal epidural steroid injection with epidurolysis. PROCEDURE DESCRIPTION: The patient was seen in the preoperative holding area consent was obtained then he was brought into the procedure room and placed in prone position. Skin was prepped with ChloraPrep and draped in a sterile manner. Lidocaine 1% was used to numb the skin up at the target point that was chosen as follows: The lateral view of fluoroscopy was used to identify the sacral hiatus and then after localizing the skin with lidocaine 1% I used 18- gauge epidural needle with a plastic sheath to go through the sacral hiatus and into the sacral canal Omnipaque was given because the patient is ALLERGIC to IVP dye. After that the metal core of the needle was taken out and the plastic sheath was kept in the sacral canal. Then Racz catheter was introduced through the plastic sheath and into the epidural space at the sacral canal using the AP view of fluoroscopy up to L5-S1 level . After that I injected 80 mg of Kenalog +2 MLS of Ropivacaine 0.5% +7 MLS of preservative-free normal saline to a total volume of 10 MLS in the epidural space. Patient tolerated procedure well. COMPLICATIONS: None. DISPOSITION / PLANS: The patient was placed in a supine position and transferred to the recovery area in a stable condition for observation and was discharged from the recovery room after meeting discharge criteria. Home discharge instructions given to the patient by the staff. The patient was reexamined prior to discharge.
[2017-10-12] MEDS ORDERED: IV FLUID CONTINUATION 1,000 ML IV ONE ×2 (09:01)
--- NOTE | 2017-10-12 09:04 | FL ---
EXAMINATION TYPE: FL guided pain mgmt statistic DATE OF EXAM: 10/12/2017 CLINICAL HISTORY: Low back pain. TECHNIQUE: Fluoroscopy. COMPARISON: None. FINDINGS: Fluoroscopic guidance was provided during pain relief procedure performed by Dr. Torres . A total of 7 seconds of fluoroscopic time was utilized during the procedure and single spot fluoros copic image is acquired. Single image acquired shows needle localization near lumbosacral junction w ith lateral fixating hardware identified. IMPRESSION: As Above.
[2017-10-12 09:15] VITALS: BP 105/54; PULSE 56
== END 2017-10-12 09:27 | disposition home or self-care (01) ==
LOC: ORPAIN 07:30
PROVIDERS: ATTEND Anesthesiology
DX: M96.1 Postlaminectomy syndrome, not elsewhere classified (principal); M54.16 Radiculopathy, lumbar region; Z91.041 Radiographic dye allergy status; F32.9 Major depressive disorder, single episode, unspecified
CPT/HCPCS: 62264; J2250; J3301; J3010; C1894; 62323

== ENCOUNTER → 2017-10-15 | Outpatient (CLI) | payer MEDICARE ==
--- NOTE | 2017-10-15 17:05 | MR ---
EXAMINATION TYPE: MR lumbar spine wo/w con DATE OF EXAM: 10/15/2017 COMPARISON: None HISTORY: LBP, BLE radic, prev surgery 2002 CONTRAST: 7 mL intravenous Gadavist. TECHNIQUE: Multiplanar, multisequence images of the lumbar spine were acquired. FINDINGS: Cord terminates at the L1 level. Pedicle screws are present with beam hardening artifact. This causes limitation on the right aspect of the spine adjacent to the surgery sites. L5-S1: No significant disc bulge or disc herniation. No spinal canal stenosis. No foraminal stenosi s. Facet hypertrophy is present. Left neural foramen is patent. L4-L5: Appears to be a central disc herniation. Anterior thecal sac contact without significant impre ssion is present. No spinal canal stenosis is present. Facet hypertrophy is present. L3-L4: Mild disc bulge has anterior thecal sac flattening No spinal canal stenosis. No foraminal st enosis. Facet hypertrophy is present.. L2-L3: Facet hypertrophy is posterior lateral thecal sac compression greater on the left. No AP spina l canal stenosis is present. Neural foramen are patent. L1-L2: No significant disc bulge or disc herniation. No spinal canal stenosis. No foraminal stenosi s. Neural foramen are patent.. T12-L1: Mild asymmetric right paracentral disc bulge is present with mild anterior thecal sac gregor domenico. No stenosis is present. No abnormal enhancement is evident. Pedicle screws through the right side pedicles of the lumbar spin e limited evaluation due to beam hardening artifact. IMPRESSION: 1. There may be a central disc herniation L4-5 which has mild anterior thecal sac contact. No stenosi s or significant thecal sac compression is evident. 2. Multilevel disc bulging discussed above. Some asymmetric disc bulging at T12-L1 on the right parac entral region may be present. 3. Postsurgical changes with pedicle screws present along the right lumbar spine. This has been harde jazmyne artifact and limitation on the evaluation of the exam.
== END | disposition home or self-care (01) ==
LOC: RADMRIMAIN 10:34
PROVIDERS: ATTEND Specialist
DX: M51.25 Other intervertebral disc displacement, thoracolumbar region (principal); Z98.890 Other specified postprocedural states
CPT/HCPCS: 72158; A9581

== ENCOUNTER 2017-10-27 09:28 | Day surgery (SDC) | payer MEDICARE ==
[2017-10-21 11:01] VITALS: BMI 27.4
[2017-10-27 10:23] VITALS: RESP 16; TEMP 97.5
[2017-10-27] MEDS ORDERED: LIDOCAINE 1% 20 ML VIAL (10MG/ML) FOR IV START INTRADERMA ONE (10:24)
--- NOTE | 2017-10-27 11:16 | P.PCN ---
Date of Procedure: 10/27/17 Procedure(s) Performed: PREOP DIAGNOSIS: 1- Lumbar postlaminectomy syndrome POSTOP DIAGNOSIS:1- Lumbar postlaminectomy syndrome PROCEDURE: Caudal epidural steroid injection with epidurolysis ,under fluoroscopic guidance ANESTHESIA: Local with 1% lidocaine 3 ml ,and moderate sedation, with Versed 4 mg and fentanyl 200 g EBL: Minimal. PROCEDURE INDICATION: The patient with post-laminectomy syndrome with low back pain and radiculopathy radiating down in both legs, here for a caudal epidural steroid injection with epidurolysis. PROCEDURE DESCRIPTION: The patient was seen and identified in the preoperative area. Risks, benefits, complications, and alternatives were discussed with the patient. The patient agreed to proceed with the procedure and signed the consent. IV was started, and vital signs were stable. Patient was taken to the OR and time out was completed. The patient was placed in the prone position on procedure table and a pillow was placed under the abdomen to reduce lumbar lordosis. The lumbosacral area was prepped and draped in the usual sterile fashion. Vital signs were closely monitored during the procedure. lateral view and the anterior-posterior plates of the sacrum were identified with infiltration of the area overlying the sacral hiatus with 1% lidocaine .A 17 gauge RK epidural needle was used to advance through the sacral hiatus into the caudal epidural space. dye not used because the patient, had ALLERGIC to IVP dye. A Racz catheter was introduced into the epidural space and was advanced towards the L5-S1 interspace under direct fluoroscopic guidance. Multiple passes were made with the catheter for lysis of epidural adhesions. Depo-Medrol 80 mg with 3ml of preservative free Lidocaine 1% and 8 ml of preservative free normal saline was injected slowly. The needle and the catheter were withdrawn intact. COMPLICATIONS: None. DISPOSITION / PLANS: The patient was placed in a supine position and transferred to the recovery area in a stable condition for observation and was discharged from the recovery room after meeting discharge criteria. Home discharge instructions given to the patient by the staff. The patient was reexamined prior to discharge. The patient will schedule a follow up in the clinic in 2-4 weeks.
[2017-10-27] MEDS ORDERED: IV FLUID CONTINUATION 1,000 ML IV ONE (11:28)
[2017-10-27 11:44] VITALS: BP 110/65; PULSE 65
--- NOTE | 2017-10-27 12:50 | FL ---
EXAMINATION TYPE: FL guided pain mgmt statistic DATE OF EXAM: 10/27/2017 HISTORY: Pain 8 SECS FL TIME 2 IMAGES SCANNED
== END 2017-10-27 11:59 | disposition home or self-care (01) ==
LOC: ORPAIN 09:28
PROVIDERS: ATTEND Specialist
DX: M96.1 Postlaminectomy syndrome, not elsewhere classified (principal); M54.10 Radiculopathy, site unspecified; Z91.041 Radiographic dye allergy status
CPT/HCPCS: 62264; J2250; J1030; J3010; C1894; 99152

== ENCOUNTER → 2017-11-12 | Day surgery (SDC) | payer MEDICARE ==
[2017-11-09 15:51] VITALS: BMI 27.4
[2017-11-12 12:25] VITALS: BP 111/75; PULSE 85; RESP 18; TEMP 98.9
--- NOTE | 2017-11-12 14:06 | P.PCN ---
Date of Procedure: 11/12/17 Procedure(s) Performed: PROCEDURE: Intrathecal pain pump analysis, programming and reprogramming, and intrathecal pain pump refill PREOPERATIVE DIAGNOSES: 1. near empty intrathecal pain pump time for refill. 2. opioid tolerance 3. failed back surgery syndrome, lumbar area POSTOPERATIVE DIAGNOSES: 1. near empty intrathecal pain pump time for refill. 2. opioid tolerance 3. failed back surgery syndrome, lumbar area ANESTHESIA: None. CONDITION: Stable. INDICATION: This is a 52-year-old patient with a long history of chronic pain secondary to PLPS and with a long history of opioid tolerance. Patient previously had an intrathecal pump placed, which is now close to empty, and patient presents for refill today. Patient denies any side effects of the intrathecal medication, including new weakness, new numbness, excessive drowsiness or sleepiness, nausea/vomiting, weight gain, or night sweats. Patient also denies suicidal ideation, and reports that the current pain medication is helping control the chronic pain and improve the patient's activities of daily living. DESCRIPTION: The intrathecal pain pump was analyzed and showed that the patient currently has reservoir volume of [9.3] mL. The patient is receiving intrathecal fentanyl PF at concentration [130 ] mcg/ ml , and bupivacaine PF at concentration [16.7] mg/ml, and baclofen [130 ] mcg/ml. Patient receiving daily dose of fentanyl [80] mg/day, bupivacaine [10 ] mg/ day, and baclofen [63] mcg/day. The location of the pump (left buttock) was prepped with chlorhexidine x3. Then , the 22-gauge needle from the [employer] kit was advanced through the pump port. Total of [9.5] ml was removed from the pump, and it was refilled with the new medication total volume of [40] ml of a solution containing intrathecal fentanyl PF at concentration [200] mcg/ ml, and bupivacaine PF at concentration [12] mg/ml, and baclofen [ 100] mcg/ml. The patient complaining of pain all the time , and the pain increases with any activity ,for this reason ,I will increased dose of fentanyl to [90] mcg/day , bupivacaine [ 5 ] mg/day, and baclofen [ 45 ] mcg/day. The patient is using some oral medications as well, specifically continue Dilaudid at 4 mg po q6h prn pain #120 orally for breakthrough pain. The patient was given two months' worth of this medication. The patient will follow up with the pain clinic in 3 months for refill . The patient has an MRI of the lumbar spine done recently I ordered last visit, and it showed that patient had multilevel lumbar facet arthropathy, and patient had a clinical examination support the patient had positive facet loading test, and patient had the straight leg raising positive bilaterally, Sam's test positive bilaterally, I explained to the patient that interview that her pain, is constant and is not improved at the current intrathecal infusion therapy, we will schedule her to have diagnostic medial branch block lumbar area L3-4 /L4 5/ L5-S1, x2 and if she has good result and we'll proceed with the radiofrequency ablation of the medial branch lumbar area
== END ==
LOC: PNWHC3 12:00
PROVIDERS: ATTEND Anesthesiology
DX: Z45.49 Encounter for adjustment and management of other implanted nervous system device (principal); G89.29 Other chronic pain; M96.1 Postlaminectomy syndrome, not elsewhere classified; Z79.891 Long term (current) use of opiate analgesic; M46.96 Unspecified inflammatory spondylopathy, lumbar region
CPT/HCPCS: 62370

== ENCOUNTER 2017-11-26 06:15 | Day surgery (SDC) | payer MEDICARE ==
[2017-11-23 15:58] VITALS: BMI 27.4
[2017-11-26 06:48] VITALS: RESP 16; TEMP 98.7
[2017-11-26] MEDS ORDERED: LIDOCAINE 1% 20 ML VIAL (10MG/ML) FOR IV START INTRADERMA ONE (06:48)
--- NOTE | 2017-11-26 07:29 | P.PCN ---
Date of Procedure: 11/26/17 Preoperative Diagnosis: Lumbar spondylosis without myelopathy Lumbar failed back surgery syndrome with fusion between L4 to S1 with hardware on the right side and bony fusion in the left side Intrathecal opioid pump in place Postoperative Diagnosis: Same as above Procedure(s) Performed: Lumbar bilateral medial branch block for levels L1 2, L2-3, and L3 4.(The levels above her lumbar fusion) Surgeon: Vernon Torres Pathology: none sent Condition: stable Disposition: PACU Description of Procedure: PROCEDURE DESCRIPTION: the patient was seen and identified in the preop holding area , risks and benefits and possible complications of the procedure and alternatives were discussed with the patient, and the patient agreed to proceed with the procedure and signed the consent. IV was started and vital signs monitored during the procedure and fluoroscopy was used to maximize the benefit and accuracy of the needle placement, sedation was given to decrease patient anxiety, patient was taken to the procedure room and placed in prone position vital signs monitored. The patient has an intrathecal opioid pump in the left buttock area. The patient was brought into the procedure room and placed in prone position. Skin was prepped with Chloraprep and draped in a sterile manner. Lidocaine 1 % was used to numb the skin up at the target points that were chosen as follows : at the L5-S1 level which corresponds to the dorsal ramus of L5 the target points were at the superior medial aspect of the sacral ala on each side of the spine on the AP view of fluoroscopy, and for the L1, L2 and L3 medial branches the target points were the connection between the transverse process and the superior to go process of L1, L2 and L3 respectively on the oblique views of fluoroscopy. I used 22-gauge 3-1/2 inch Quincke spinal needles for this procedure and after contacting bone at the target points mentioned above I injected 1 mL of a mixture of Kenalog 40 mg +5 MLS of Marcaine 0.5% PF . Patient tolerated procedure well. At the end of the procedure the needles removed and a bandage applied after the skin was cleaned the cleaning solution. patient was then taken to the recovery room in stable condition and monitored in the recovery room for 20-30 minutes and discharged home in stable condition after discharge criteria met .
[2017-11-26] MEDS ORDERED: IV FLUID CONTINUATION 1,000 ML IV ONE ×2 (07:36)
--- NOTE | 2017-11-26 07:48 | FL ---
EXAMINATION TYPE: FL guided pain mgmt statistic DATE OF EXAM: 11/26/2017 CLINICAL HISTORY: Low back pain. TECHNIQUE: Fluoroscopy. COMPARISON: None. FINDINGS: Fluoroscopic guidance was provided during pain relief procedure performed by Dr. Torres . A total of 10 seconds of fluoroscopic time was utilized during the procedure and 4 spot images are acquired. Images acquired shows needle localization at several levels in the lower lumbar spine. IMPRESSION: As Above.
[2017-11-26 07:57] VITALS: BP 109/77; PULSE 77
== END 2017-11-26 08:00 | disposition home or self-care (01) ==
LOC: ORPAIN 06:15
PROVIDERS: ATTEND Anesthesiology
DX: M47.816 Spondylosis without myelopathy or radiculopathy, lumbar region (principal); M96.1 Postlaminectomy syndrome, not elsewhere classified; Z96.89 Presence of other specified functional implants; Z79.891 Long term (current) use of opiate analgesic; Z91.041 Radiographic dye allergy status
CPT/HCPCS: 64493; 64494; 64495; J2250; J3301; 99152

== ENCOUNTER 2017-12-08 08:31 | Day surgery (SDC) | payer MEDICARE ==
[2017-12-01 16:00] VITALS: BMI 27.4
[2017-12-08 09:01] VITALS: TEMP 98
[2017-12-08] MEDS ORDERED: LIDOCAINE 1% 20 ML VIAL (10MG/ML) FOR IV START INTRADERMA ONE (09:07)
--- NOTE | 2017-12-08 10:06 | P.PCN ---
Date of Procedure: 12/08/17 Procedure(s) Performed: PREOPERATIVE DIAGNOSIS : 1- Lumbar spondylosis with Facet Arthropathy without myelopathy . POSTOPERATIVE DIAGNOSIS: 1- Lumbar spondylosis with Facet Arthropathy without myelopathy . PROCEDURE: Diagnostic bilateral L1-2 , L2-3 , L3 -4 , medial branch block under fluoroscopy ( she had Fusion at L4-5 , L5-S1 ) ANESTHESIA: moderate sedation with intravenous Versed 2 mg and Fentanyl 100 mcg. EBL: Minimal COMPLICATION: None. IV FLUIDS: 100 mL of normal saline. PROCEDURE INDICATION: Chronic low back pain secondary to Facet arthropathy unresponsive to conservative treatment. PROCEDURE DESCRIPTION: the patient was seen and identified in the preop holding area , risks and benefits and possible complications of the procedure and alternative were discussed with the patient, and the patient agreed to proceed with the procedure and signed the consent IV was started and vital signs monitored during the procedure and fluoroscopy was used to maximize the benefit and accuracy of the needle placement, and sedation was given to decrease patient anxiety, patient was taken to the procedure room and placed in prone position vital signs monitored in the back prepped with chlorhexidine X3 then under strict sterile technique using a right oblique fluoroscopy ,the junction of the transverse process and the superior articulating process of the right L1-2 , L2-3, and L3-4 vertebra which corresponding to the fluoroscopy image of the eye of the Derek dog on the block side for the medial branches and subsequently , after local infiltration of skin and subcu tissuies with Ropivacaine 0.5 % , one mL at each level , then 25-gauge Quincke-type needles , 3 needle was used , each one of them placed at the junction of the base of the transverse process and the superior articular process at the appropriate level, and the needle was advanced until the periosteum contacted, needle placement confirmed with AP oblique and lateral view and after appropriate needle placement confirmed, and after negative aspiration for heme and CSF and there was no paresthesia 1-1/2 mL of Ropivacaine 0.5% mixed with 20 mg Kenalog , then half mL injected at each level after negative aspiration the needle subsequently removed and the same procedure repeated for the left side at left side at L1-2,, L2-3 and L3- 4levels. At the end of the procedure and the needles removed and a bandage applied after the skin was cleaned the cleaning solution patient taken to recovery room in stable condition and monitors in the recovery room for 20-30 minutes and discharged home in stable condition after discharge criteria met and patient will follow up with the pain clinic in 2-4 weeks
[2017-12-08] MEDS ORDERED: IV FLUID CONTINUATION 1,000 ML IV ONE (10:08)
[2017-12-08 10:25] VITALS: BP 107/78; PULSE 69; RESP 16
--- NOTE | 2017-12-08 14:33 | FL ---
Fluoroscopy HISTORY: Pain 11 seconds fluoroscopy time supplied to the referring clinician. 1 intraoperative C-arm images docum ent the procedure. See dictated report from anesthesia.
== END 2017-12-08 10:35 | disposition home or self-care (01) ==
LOC: ORPAIN 08:31
PROVIDERS: ATTEND Specialist
DX: G89.29 Other chronic pain (principal); M47.816 Spondylosis without myelopathy or radiculopathy, lumbar region; Z91.041 Radiographic dye allergy status
CPT/HCPCS: 64493; 64494; 64495; J2250; J3010; 99152

== ENCOUNTER → 2017-12-21 | Outpatient (CLI) | payer MEDICARE | LOC: PNWHC3 12:53 | PROVIDERS: ATTEND Anesthesiology | DX: Z53.9 Procedure and treatment not carried out, unspecified reason (principal) ==

== ENCOUNTER 2017-12-31 08:56 | Day surgery (SDC) | payer MEDICARE ==
[2017-12-28 11:43] VITALS: BMI 27.4
[~2017-12-31 08:56] MED LIST changes: -LACTATED RINGERS 1,000 ML IV SCH; +SODIUM CHLORIDE 0.9% 500 ML 500 ML IV SCH
[2017-12-31 10:35] VITALS: TEMP 98.2
--- NOTE | 2017-12-31 11:42 | P.PCN ---
Date of Procedure: 12/31/17 Procedure(s) Performed: PREOPERATIVE DIAGNOSIS: 1-Lumbar Spondylosis with Facet Arthropathy without myelopathy. 2-failed back surgery syndrome lumbar area POSTOPERATIVE DIAGNOSIS: 1- Lumbar Spondylosis with Facet Arthropathy without myelopathy. 2-failed back surgery syndrome lumbar area PROCEDURES : Left Radiofrequency thermocoagulation, L1-2 , L2-3 medial branch , with fluoroscopic guidance (Attempted to do the left side L3- 4 but the procedure at that level was aborted because patient had intrathecal catheter, the catheter was at the location Of Left L3 4 level ,and for this reason , I chose ,not to do the procedure at that level, because I was concerned about the radiofrequency needle could damage the catheter ) ANESTHESIA: Moderate sedation with intravenous versed 4 mg and fentaneyl 100 mcg, and local infiltration with Ropivacaine 0.5 % . EBL: Minimal PROCEDURE INDICATION: The patient with low back pain secondary to lumbar facet arthropathy who had more than 50% relief of her pain with previous diagnostic lumbar medial branch block with bupivacaine. PROCEDURE DESCRIPTION / TECHNIQUE: The patient was seen and identified in the preoperative area. Risks, benefits, complications, including but not limited to risk of infection ,bleeding , allergic reactions to the medications and no complete pain releife , and alternatives were discussed with the patient, the patient agreed to proceed with the procedure and signed the consent. IV was started. Vital signs remained stable throughout the procedure. Patient was taken to the OR and time out was completed. The patient was placed in the prone position on the procedure table. The lumber area was prepped and draped in the usual sterile fashion. . Vital signs were closely monitored during the procedure .IV sedation was used during the procedure to decrease patients anxiety. Using AP and then oblique fluoroscopy, the ``eye of the Derek dog corresponding to the connection between the superior and transverse articular processes of Left L1, L2, were identified, marked, and localized with 1% lidocaine. Subsequently, a [id number] radiofrequency cannula with a 10-mm active tip was advanced guided by fluoroscopy to each of the ``eyes of the Derek dog at left L1, L2, Each site then underwent sensory testing at 50 Hz and 0 to 1 volt and motor testing at 2.5 Hz and 0 to 3 volt with local stimulation, but no radicular symptoms down the legs. Thereafter the Left L1-2 , L2-3,sites underwent radiofrequency thermocoagulation at 80 degrees celsius for 90 seconds after injecting 0.5 ml of PF Ropivacaine 1ml , then After the thermocoagulation done , 1 ml of the block solution containing Kenalog 40 mg and 2ml of Ropivacaine 0.5% was injected at the left L1-2 , L2-3 , levels after negative aspiration of CSF and blood and with no paresthesias. Cannulas were retracted while injecting lidocaine 1% until the needle is out. At the end of the procedure, the skin was cleansed and bandages were applied. COMPLICATIONS: No acute complications. DISPOSITION / PLANS: The patient was placed in a supine position and transferred to the recovery area in a stable condition for observation and was discharged from the recovery room after meeting discharge criteria. Home discharge instructions given to the patient by the staff. The patient was reexamined prior to discharge. The patient will schedule a follow up in the clinic in 2-4 weeks.
[2017-12-31 12:41] VITALS: PULSE 90
[2017-12-31 12:43] VITALS: BP 106/65; RESP 20
--- NOTE | 2017-12-31 14:10 | FL ---
EXAMINATION TYPE: FL guided pain mgmt statistic DATE OF EXAM: 12/31/2017 FLUOROSCOPY Fluoroscopy time of 11 seconds was used during radiofrequency ablation right sided lumbar spine at 2 levels. 3 image/s document/s the procedure.
== END 2017-12-31 12:35 | disposition home or self-care (01) ==
LOC: ORPAIN 08:56
PROVIDERS: ATTEND Specialist
DX: M47.816 Spondylosis without myelopathy or radiculopathy, lumbar region (principal); M96.1 Postlaminectomy syndrome, not elsewhere classified; Z91.048 Other nonmedicinal substance allergy status
CPT/HCPCS: 64635; 64636; J2250; J3301; J3010; 99152

== ENCOUNTER → 2018-01-20 | Day surgery (SDC) | payer MEDICARE ==
[2018-01-15 10:18] VITALS: BMI 28.3
[~2018-01-20] MED LIST changes: +SODIUM CHLORIDE 0.9% 500 ML 500 ML IV ONE
[2018-01-20 08:59] VITALS: TEMP 98.3
--- NOTE | 2018-01-20 10:21 | P.PCN ---
Date of Procedure: 01/20/18 Surgeon: Vernon Torres Pathology: none sent Condition: stable Disposition: PACU Description of Procedure: PREOPERATIVE DIAGNOSIS: Lumbar spondylosis without myelopathy, failed back surgery syndrome POSTOPERATIVE DIAGNOSIS: Lumbar spondylosis without myelopathy, failed back surgery syndrome PROCEDURES : Right Radiofrequency thermocoagulation,L1-2,L2-3,and L3-4 medial branch, with fluoroscopic guidance ANESTHESIA: IV moderate conscious sedation with versed 4 mg and fentanyl 100 mcg and local infiltration with lidocaine 1% 5 ml EBL: Minimal PROCEDURE INDICATION: The patient with low back pain secondary to lumbar facet arthropathy who had more than 50% relief of her pain with previous diagnostic lumbar medial branch block with bupivacaine. PROCEDURE DESCRIPTION / TECHNIQUE: The patient was seen and identified in the preoperative area. Risks, benefits, complications, including but not limited to risk of infection ,bleeding , allergic reactions to the medications and no complete pain relief , and alternatives were discussed with the patient, the patient agreed to proceed with the procedure and signed the consent. IV was started. Vital signs remained stable throughout the procedure. Patient was taken to the OR and time out was completed. The patient was placed in the prone position on the procedure table. The lumber area was prepped and draped in the usual sterile fashion. . Vital signs were closely monitored during the procedure .IV sedation was used during the procedure to decrease patients anxiety. The target points were identified as follows: for the L1,L2,and L3 medial branches the target points were at the connection between the transverse process and the superior articular process of L1,L2,L3 vertebra respectively on the --Rt-- oblique view of fluoroscopy. skin was marked, and localized with 1% lidocaineat these points. Subsequently, an 18 -sd radiofrequency needles with a 10-mm curved active tips were advanced guided by fluoroscopy to each of the target points mentioned above in a superior medial direction to get the active tips as parallel as possible to the medial branches tracks. AP, oblique, and lateral views of fluoroscopy were used to verify needle tips position. Each level then underwent motor testing at 2.5 Hz and 0 to 3 volt with local stimulation, but no radicular symptoms down the legs. I put 1 mL of lidocaine 1% in each needle before starting RFA. Thereafter radiofrequency thermocoagulation at 80 degrees celsius for 90 seconds then I injected 1 ml of PF Ropivacaine 0.5%(3 mls) with 40 mg of Kenalog. Of note the patient has lumbar fusion from L4 down to S1 and she has intrathecal opioid pump in the left buttock. At the end of the procedure, the skin was cleansed and bandages were applied. The preop evaluation showed mild weakness in the left hip flexion to 4 out of 5 and pain in both buttocks. If her pain continues and if she is getting weaker in the left leg , then we will plan on doing an MRI on the thoracolumbar spine. Also if her pain continues without any neurologic changes then we can increase the dose of intrathecal Dilaudid in the future. COMPLICATIONS: No acute complications. DISPOSITION / PLANS: The patient was placed in a supine position and transferred to the recovery area in a stable condition for observation and was discharged from the recovery room after meeting discharge criteria. Home discharge instructions given to the patient by the staff. The patient was reexamined prior to discharge. The patient will schedule a follow up in the clinic in 2-4 weeks.
[2018-01-20 10:48] VITALS: BP 116/69; PULSE 69; RESP 20
--- NOTE | 2018-01-20 10:48 | FL ---
Fluoroscopy History: Pain [address] Torres. RF Lumbar. 4 images scanned.
== END ==
LOC: ORPAIN 08:33
PROVIDERS: ATTEND Anesthesiology
DX: M47.816 Spondylosis without myelopathy or radiculopathy, lumbar region (principal); M96.1 Postlaminectomy syndrome, not elsewhere classified; Z98.1 Arthrodesis status; Z96.89 Presence of other specified functional implants; Z79.891 Long term (current) use of opiate analgesic; Z91.041 Radiographic dye allergy status
CPT/HCPCS: 64635; 64636; J2250; J3301; J2001; J3010; 99152

== ENCOUNTER → 2018-02-03 | Day surgery (SDC) | payer MEDICARE ==
[2018-02-02 15:42] VITALS: BMI 28.3
[2018-02-03 12:27] VITALS: BP 121/66; PULSE 94; RESP 18
--- NOTE | 2018-02-03 12:49 | P.PCN ---
Date of Procedure: 02/03/18 Preoperative Diagnosis: Failed back surgery syndrome Near empty intrathecal opioid pump Postoperative Diagnosis: Failed back surgery syndrome Anesthesia: none Surgeon: Vernon Torres Pathology: none sent Condition: stable Disposition: no change Description of Procedure: This is a 52-year-old lady with history of failed back surgery syndrome. The patient is here today for a refill on her pain pump which has a solution of fentanyl 200 g per mL, bupivacaine 12 mg per mL, 100 g per ml. the patient gets 90 micrograms of fentanyl per day. She states that her pain has been getting worse lately but she denies any new neurologic changes in the lower extremities. By physical activity and she has decreased left knee reflex compared to the right side and absent ankle reflexes bilaterally however she has normal muscle strength bilaterally and symmetrically in the lower extremities. The patient assumed the prone position and skin over the pump in the left buttock area was prepped with DuraPrep and draped in a sterile manner. I used 22-gauge Foodilytronic needle to get into the pump reservoir and aspirated 3.6 MLS of the residual solution. I then injected 40 MLS of the new solution with the above-mentioned concentrations through a filter with frequent intermittent aspiration to make sure that the new solution is being deposited in the reservoir of the pump itself and not subcutaneously. The pump was reprogrammed with the new dose of fentanyl. Iwent up on the fentanyl daily dose to 100 g per day. Patient tolerated procedure well. She will be seen back in 3 months from now. I also refilled her Dilaudid prescription of 4 mg with 120 pills per month with 2 refills.
== END | disposition home or self-care (01) ==
LOC: PNWHC3 11:52
PROVIDERS: ATTEND Anesthesiology
DX: Z45.1 Encounter for adjustment and management of infusion pump (principal); M96.1 Postlaminectomy syndrome, not elsewhere classified
CPT/HCPCS: 62370

== ENCOUNTER → 2018-04-14 | Day surgery (SDC) | payer MEDICARE ==
[2018-04-14 13:14] VITALS: BP 107/73; PULSE 85; RESP 18
--- NOTE | 2018-04-14 13:33 | P.PCN ---
Date of Procedure: 04/14/18 Procedure(s) Performed: PROCEDURE: Intrathecal pain pump analysis, programming and reprogramming, and intrathecal pain pump refill PREOPERATIVE DIAGNOSES: 1. near empty intrathecal pain pump time for refill. 2. opioid tolerance 3. failed back surgery syndrome, lumbar area POSTOPERATIVE DIAGNOSES: 1. near empty intrathecal pain pump time for refill. 2. opioid tolerance 3. failed back surgery syndrome, lumbar area ANESTHESIA: None. CONDITION: Stable. INDICATION: This is a 53-year-old patient with a long history of chronic pain secondary to PLPS and with a long history of opioid tolerance. Patient previously had an intrathecal pump placed, which is now close to empty, and patient presents for refill today. Patient denies any side effects of the intrathecal medication, including new weakness, new numbness, excessive drowsiness or sleepiness, nausea/vomiting, weight gain, or night sweats. Patient also denies suicidal ideation, and reports that the current pain medication is helping control the chronic pain and improve the patient's activities of daily living. Patient reported that she having severe pain in her low back area and she has some numbness and tingling in her left lower extremity, she denies any motor or sensory deficit, she reported that her pain level is always significantly high ,and the current medications is not helping enough to control her pain, for this reason we discussed with the patient the option of increasing the intrathecal pain medication , hopefully this will improve her pain DESCRIPTION: The intrathecal pain pump was analyzed and showed that the patient currently has reservoir volume of [5] mL. The patient is receiving intrathecal fentanyl PF at concentration [200 ] mcg/ ml , and bupivacaine PF at concentration [12] mg/ml, and baclofen [100] mcg/ml. Patient receiving daily dose of fentanyl [100] mg/day, bupivacaine [6] mg/day , and baclofen [50] mcg/day. The location of the pump (left buttock) was prepped with chlorhexidine x3. Then , the 22-gauge needle from the [employer] kit was advanced through the pump port. Total of [7] ml was removed from the pump, and it was refilled with the new medication total volume of [40] ml of a solution containing intrathecal fentanyl PF at concentration [200] mcg/ ml, and bupivacaine PF at concentration [12] mg/ml, and baclofen [100 ] mcg/ml. I increase the daily dose of the medication to fentanyl 114.9 g per day, baclofen 57.46 g per day, and bupivacaine 6.89 mg per day All this increased equal to 15% daily increase of the intrathecal pain medication, patient given a prescription refill for Dilaudid 4 mg every 6hours when necessary for pain dispense 120 with one refill And patient will follow up in the pain clinic in 8 weeks
== END | disposition home or self-care (01) ==
LOC: PNWHC3 12:29
PROVIDERS: ATTEND Specialist
DX: Z45.1 Encounter for adjustment and management of infusion pump (principal); G89.29 Other chronic pain; M96.1 Postlaminectomy syndrome, not elsewhere classified
CPT/HCPCS: 62370

== ENCOUNTER → 2018-05-07 | Outpatient (CLI) | payer MEDICARE ==
--- NOTE | 2018-05-07 14:26 | US ---
EXAMINATION TYPE: US venous doppler duplex LE LT DATE OF EXAM: 05/07/2018 12:51 PM COMPARISON: NONE CLINICAL HISTORY: R22.0 mass swelling, R22.42 Left Lower Ext. Patient states left thigh pain. SIDE PERFORMED: Left TECHNIQUE: The lower extremity deep venous system is examined utilizing real time linear array sonog dimple with graded compression, doppler sonography and color-flow sonography. VESSELS IMAGED: External Iliac Vein (EIV) Common Femoral Vein Deep Femoral Vein Greater Saphenous Vein * Femoral Vein Popliteal Vein Proximal Calf Veins (* superficial vessels) Rouleaux flow noted throughout. Left Leg: Negative for DVT Scanned GSV over patient's area of pain. GSV is patent. IMPRESSION: 1. Left lower extremity ultrasound negative for deep venous thrombosis.
--- NOTE | 2018-05-07 14:42 | US ---
EXAMINATION TYPE: US thyroid st tissue head/neck DATE OF EXAM: 05/07/2018 COMPARISON: NONE CLINICAL HISTORY: R22.0 SWELLING,MASS. Patient states swelling low left neck, but it has gone down. GLAND SIZE: Right Lobe: 4.6 x 1.3 x 1.8 cm Overall Parenchyma: homogenous Left Lobe: 4.6 x 1.0 x 1.3 cm Overall Parenchyma: homogeneous Isthmus Thickness: 0.2 cm NODULES RIGHT: # of nodules measured on right: 1 1. 0.4 X 0.4 x 0.4 cm hypoechoic solid nodule at the lower pole with well-defined margins; calcifie d. This nodule is wider than tall and shows intranodular vascularity. Prior size: no prior LEFT: # of nodules measured on left: 0 ISTHMUS: # of nodules measured in the isthmus: 0 Bilateral neck scanned, no evidence of lymphadenopathy. Calcified nodule right lobe. IMPRESSION: 1. Subcentimeter calcified nodule right lobe thyroid.
== END | disposition home or self-care (01) ==
LOC: RADUSWWP 12:15
PROVIDERS: ATTEND Family Medicine
DX: R22.42 Localized swelling, mass and lump, left lower limb (principal); E04.1 Nontoxic single thyroid nodule; Z91.048 Other nonmedicinal substance allergy status
CPT/HCPCS: 76536

== ENCOUNTER → 2018-06-09 | Day surgery (SDC) | payer MEDICARE ==
[2018-06-09 13:13] VITALS: BP 117/77; PULSE 96; RESP 18; TEMP 97.7
--- NOTE | 2018-06-09 14:00 | P.PN ---
Subjective Progress Note Date: 06/09/18 This is a 52-year-old lady with history of chronic lower back pain due to failed back surgery syndrome. The patient's pain has been getting worse lately but no paresthesia in the lower extremities and with history of muscle strength with no deterioration. The patient was emotional during the interview due to her increased pain and some more stressors in her life. She has intrathecal fentanyl infusion pump with a mixture of fentanyl, baclofen, and bupivacaine. The patient had numbness in the left thigh however it got better after the bupivacaine concentration is decreased in the intrathecal infusion solution. Today, pt denies new-onset weakness, bowel/bladder incontinence, or any other signs or symptoms of cauda equina syndrome. There are no signs of acute intoxication, and no indications of medication diversion or overuse. In addition to above, 13-point review of systems is also negative for chest pain, shortness of breath, changes in vision, changes in hearing, new onset weakness, abdominal pain, diarrhea, extreme fatigue, malaise, fever, skin ch anges, homicidal or suicidal ideation, or bowel or bladder incontinence. Vital Signs: Reviewed in EMR Gen: AAOx3, NAD HEENT: PERRLA,hearing grossly normal Pulm: resp unlabored Neck: supple, trachea midline Neuro exam of the lower extremities: Decreased but symmetrical muscle strength in the lower extremities. Absent left knee reflex and normal right knee reflex and absent ankle reflexes bilaterally. Straight leg raising test: Sam's test: Range of motion of the lumbar spine: Facet loading test: Tenderness in the paravertebral musculature: Positive the lumbar paravertebral musculature bilaterally Neuro: CN II-XII grossly intact, Imaging: Reviewed in EMR/chart Assessment: Failed back surgery syndrome Intrathecal infusion of fentanyl Chronic pain syndrome Opioid dependence New-onset absent left knee reflex Plan: 1. Explanation: Opioid and psychological risk scores were reviewed. Diagnoses, prognoses, and multiple treatment options including but not limited to physical therapy, interventional therapies, adjuvant medical therapies, narcotic medication therapies, and surgery were discussed with the patient and all questions were answered to the patient's satisfaction. 2. Opioid agreement: Signed with the patient and the patient is warned not to use opioids while driving or before driving and not to combine opioids with benzodiazepines or alcohol. 3. Counseling: The patient was counseled extensively on SMOKING CESSATION, BODY MASS INDEX, EXERCISE. Specifically, the patient was instructed regarding the importance of smoking cessation, obesity, and exercise in the context of both chronic pain and overall health. 4. Procedures: We will refill her intrathecal fentanyl pump today 5. Consultations: None 6. Investigations: Thoracic and lumbar spine MRI with and without contrast to rule out granuloma at the tip of the intrathecal opioid infusion catheter. This MRI is ordered due to the new absence of the left knee reflex. 7. Medications: Continue the Dilaudid 4 mg every 6 hours when necessary pain I will give HER-2 refills. 8. Disposition: Return to clinic in 12 weeks. We'll review the MRI results as soon as possible and get back to the patient with the results and will get her in sooner if there is anything serious on the MRI. 9. Maps were reviewed and were appropriate. PQRS measures: 1-Patient's medications are documented in the chart. 2-Tobacco use is negative, counseling given 3-Patient has not had a pneumococcal vaccine. 4-Advanced care planning discussed, patient unable to give 5-Opioid contract signed with the patient. 6-Pain positive, follow-up visit or procedure scheduled 7-Patient's blood pressure measured and documented normal limits. The patient will follow up with his primary care physician. 8-Patient's weight was measured, and body mass index ABOVE the normal limits, and counseling was done. Patient instructed to follow up with PCP. 9-Patient WAS NOT identified as an unhealthy alcohol user. Controlled Substance Measures Is patient prescribed a controlled substance at discharge?: Yes When asked, does pt state using other controlled substances?: No If prescribed controlled substance>3 days was MAPS reviewed?: Yes If Rx opioid, was Start Talking consent form obtained?: Yes If opioid is for acute pain is fill amount 7 days or less?: No Was information provided regarding opioid addiction?: Yes Objective - Vital Signs Vital signs: Vital Signs Temp 97.7 F 06/09/18 13:07 Pulse 96 06/09/18 13:07 Resp 18 06/09/18 13:07 BP 117/77 06/09/18 13:07 Pulse Ox 96 06/09/18 13:07 Intake & Output 06/08/18 06/09/18 06/09/18 18:59 06:59 18:59 Weight 71.668 kg
--- NOTE | 2018-06-09 14:04 | P.PCN ---
Date of Procedure: 06/09/18 Preoperative Diagnosis: Failed back surgery syndrome Near empty intrathecal opioid pump Postoperative Diagnosis: Failed back surgery syndrome Anesthesia: none Surgeon: Vernon Torres Pathology: none sent Condition: stable Description of Procedure: The patient assumed the prone position, skin was prepped with DuraPrep and draped in a sterile manner. The CelePost needle was used to go through the port into the pump reservoir and then 2 MLS of the remaining solution was aspirated. Then I injected 40 MLS of the new solution through a filter incrementally with frequent aspiration to rule out any placement of the new solution in the subcutaneous area. The patient then was reprogrammed to give a small dose of fentanyl of 5 mics over 30 minutes and to increase her daily dose of fentanyl 125 g a day. The solution infused has a concentration of 300 g per mL of fentanyl plus baclofen and bupivacaine Patient tolerated procedure well.
== END ==
LOC: PNWHC3 12:59
PROVIDERS: ATTEND Anesthesiology
DX: G89.4 Chronic pain syndrome (principal); F11.20 Opioid dependence, uncomplicated; M96.1 Postlaminectomy syndrome, not elsewhere classified; Z45.1 Encounter for adjustment and management of infusion pump; R29.2 Abnormal reflex
CPT/HCPCS: 62370

== ENCOUNTER → 2018-08-25 | Day surgery (SDC) | payer MEDICARE ==
[2018-08-25 10:37] VITALS: BP 94/68; PULSE 89; RESP 19
--- NOTE | 2018-08-25 11:01 | P.PCN ---
Date of Procedure: 08/25/18 Surgeon: Vernon Torres Pathology: none sent Condition: stable Disposition: no change Description of Procedure: This is a 53-year-old lady with history of failed back surgery syndrome and intrathecal fentanyl infusion. The patient has new onset of absent left knee reflex and I ordered an MRI on her on her last visit however she cannot afford her copayment on this MRI until October of this year. The patient otherwise is doing well with no deterioration in her neurologic exam. The patient assumed the prone position on the examination table skin was prepped with ChloraPrep over the pump on the left side of her buttock. Then I used [employer] needle to go through the pump port and into the reservoir and aspirated 11 MLS of the solution residuals. I then injected through a filter 40 MLS of the new solution with concentrations of fentanyl 300 g per mL, baclofen 100 mg per mL, and bupivacaine 12 mg per mL. The patient is getting the fentanyl at a rate of 125 g per day. The pump was reprogrammed with no changes in the infusion rate. The patient also was given prescription for Dilaudid 4 mg 4 times a day if needed with 2 months refill. I encouraged the patient to go down on her oral dose of Dilaudid and she will try to go down to 3 pills a day on her own. We will see the patient 3 months from now and hopefully by that time she will have her MRI done.
== END ==
LOC: PNWHC3 10:27
PROVIDERS: ATTEND Anesthesiology
DX: M96.1 Postlaminectomy syndrome, not elsewhere classified (principal); Z79.891 Long term (current) use of opiate analgesic
CPT/HCPCS: 62370

== ENCOUNTER → 2018-11-24 | Day surgery (SDC) | payer MEDICARE ==
[2018-11-24 12:20] VITALS: BP 107/73; PULSE 101; RESP 16
--- NOTE | 2018-11-24 13:28 | P.PCN ---
Date of Procedure: 11/24/18 Description of Procedure: Procedure: Intrathecal pump refill with analysis and reprogramming Preoperative diagnosis: Postlaminectomy syndrome Postoperative diagnosis: Same Surgeon: Jasiel Serna M.D. Anesthesia: Skin local Indication for procedure: This a 53-year-old woman with a history of postlaminectomy syndrome who has intrathecal pump in place. She presents today for refill of her pump. She reports that her pain management recently has been poor and she complains of pain located in her buttocks and her lower back. Procedure in detail: After potential risks and benefits reviewed the patient, the patient signed informed consent. The area over the intrathecal pump was then prepped and draped in the usual sterile fashion. The pump was accessed using the [employer] refill kit. Their refill protocol was followed. Contents of the pump were aspirated. The new solution was then verified in then injected through a bacteriostatic filter into the pump with aspiration occurring every 3- 5 mL to confirm intrathecal placement. The needle was then withdrawn once the entire volume was injected and a Band-Aid was applied. Amount of fluid removed: 5 mL Current medications solution: Fentanyl 300 g per mL, baclofen 100 g per mL, bupivacaine 12 mg per mL Current medication dosage: Fentanyl 125 g per day, baclofen 42 g per day, bupivacaine 5 mg per day Refill solution injected: 40 mL of the above solution Elective replacement interval: July 2023, approximately 57 months Low reservoir refill date: 02/23/2019 Given the patient's complaints of what seems to be myofascial pain on examination, I have referred her for water therapy.
== END ==
LOC: PNWHC3 12:05
PROVIDERS: ATTEND Pain Medicine Pain Medicine
DX: M96.1 Postlaminectomy syndrome, not elsewhere classified (principal); M79.18 Myalgia, other site; Z79.891 Long term (current) use of opiate analgesic
CPT/HCPCS: 62370; 99211

== ENCOUNTER → 2019-02-16 | Day surgery (SDC) | payer MEDICARE ==
[2019-02-16 11:19] VITALS: BP 129/80; PULSE 78; RESP 18
--- NOTE | 2019-02-16 11:59 | P.PCN ---
Date of Procedure: 02/16/19 Procedure(s) Performed: PROCEDURE: Intrathecal pain pump analysis, programming and reprogramming, and intrathecal pain pump refill PREOPERATIVE DIAGNOSES: 1. near empty intrathecal pain pump time for refill. 2. opioid tolerance 3. failed back surgery syndrome, lumbar area POSTOPERATIVE DIAGNOSES: 1. near empty intrathecal pain pump time for refill. 2. opioid tolerance 3. failed back surgery syndrome, lumbar area ANESTHESIA: None. CONDITION: Stable. INDICATION: This is a 53-year-old patient with a long history of chronic pain secondary to PLPS and with a long history of opioid tolerance. Patient previously had an intrathecal pump placed, which is now close to empty, and patient presents for refill today. Patient denies any side effects of the intr athecal medication, including new weakness, new numbness, excessive drowsiness or sleepiness, nausea/vomiting, weight gain, or night sweats. Patient also denies suicidal ideation, and reports that the current pain medication is helping control the chronic pain and improve the patient's activities of daily living. Patient reported that she having severe pain in her low back area and she has some numbness and tingling in her left lower extremity, she denies any motor or sensory deficit, she reported that her pain level is always significantly high ,and the current medications is not helping enough to control her pain, for this reason we discussed with the patient the option of increasing the intrathecal pain medication , hopefully this will improve her pain DESCRIPTION: The intrathecal pain pump was analyzed and showed that the patient currently has reservoir volume of [5.1] mL. volume removed 86.5 mL The patient is receiving intrathecal fentanyl PF at concentration [200 ] mcg/ ml, and bupivacaine PF at concentration [12] mg/ml, and baclofen [100] mcg/ml. Patient receiving daily dose of fentanyl [124] mg/day, bupivacaine [4.99 ] mg/day, and baclofen [41 ] mcg/day. The location of the pump (left buttock) was prepped with chlorhexidine x3. Then, the 22-gauge needle from the [employer] kit was advanced through the pump port. Total of [7] ml was removed from the pump, and it was refilled with the new medication total volume of [40] ml of a solution containing intrathecal fentanyl PF at concentration [200] mcg/ ml, and bupivacaine PF at concentration [12] mg/ml, and baclofen [100 ] mcg/ml. The patient reported that her pain level 4/10, and she is using Dilaudid every 4-6 hours I increase the daily dose of the medication to fentanyl 140 g per day, baclofen 46.6 g per day, and bupivacaine 5.6 mg per day Which is equal to 12 % daily increase of the intrathecal pain medication, patient given a prescription refill for Dilaudid 4 mg every 6hours when necessary for pain dispense 120 with one refill And patient will follow up in the pain clinic in 8 weeks
== END ==
LOC: PNWHC3 10:47
PROVIDERS: ATTEND Specialist
DX: Z45.1 Encounter for adjustment and management of infusion pump (principal); G89.29 Other chronic pain; M96.1 Postlaminectomy syndrome, not elsewhere classified; R20.2 Paresthesia of skin; R20.0 Anesthesia of skin; Z79.891 Long term (current) use of opiate analgesic; Z79.899 Other long term (current) drug therapy
CPT/HCPCS: 80307; 62370; G0482

== ENCOUNTER → 2019-04-27 | Day surgery (SDC) | payer MEDICARE ==
[2019-04-27 11:40] VITALS: BP 121/88; PULSE 95; RESP 18
--- NOTE | 2019-04-27 12:06 | P.PCN ---
Date of Procedure: 04/27/19 Procedure(s) Performed: PROCEDURE: Intrathecal pain pump analysis, programming and reprogramming, and intrathecal pain pump refill PREOPERATIVE DIAGNOSES: 1. near empty intrathecal pain pump time for refill. 2. opioid tolerance 3. failed back surgery syndrome, lumbar area POSTOPERATIVE DIAGNOSES: 1. near empty intrathecal pain pump time for refill. 2. opioid tolerance 3. failed back surgery syndrome, lumbar area ANESTHESIA: None. CONDITION: Stable. INDICATION: This is a 54-year-old patient with a long history of chronic pain secondary to PLPS and with a long history of opioid tolerance. Patient previously had an intrathecal pump placed, which is now close to empty, and patient presents for refill today. Patient denies any side effects of the intra thecal medication, including new weakness, new numbness, excessive drowsiness or sleepiness, nausea/vomiting, weight gain, or night sweats. Patient also denies suicidal ideation, and reports that the current pain medication is helping control the chronic pain and improve the patient's activities of daily living. Patient reported that she having severe pain in her low back area and she has some numbness and tingling in her left lower extremity, she denies any motor or sensory deficit, she reported that her pain level is always significantly high ,and the current medications is not helping enough to control her pain, for this reason we discussed with the patient the option of increasing the intrathecal pain medication , hopefully this will improve her pain DESCRIPTION: The intrathecal pain pump was analyzed and showed that the patient currently has reservoir volume of [7.6] mL. volume removed 8 mL The patient is receiving intrathecal fentanyl PF at concentration [300 ] mcg/ ml, and bupivacaine PF at concentration [12] mg/ml, and baclofen [100] mcg/ml. Patient receiving daily dose of fentanyl [140] mcg/day, bupivacaine [5.6] mg/day, and baclofen [46.6] mcg/day. The location of the pump (left buttock) was prepped with chlorhexidine x3. Then, the 22-gauge needle from the [employer] kit was advanced through the pump port. Total of [7] ml was removed from the pump, and it was refilled with the new medication total volume of [40] ml of a solution containing intrathecal fentanyl PF at concentration [200] mcg/ ml, and bupivacaine PF at concentration [12] mg/ml, and baclofen [100 ] mcg/ml. The patient reported that her pain level 4/10, and she is using Dilaudid every 4-6 hours She is having hard time getting Dilaudid prescription filled from the pharmacy, the pharmacy most of the time has part of the prescription we prescribed to the patient, for this reason and will change Dilaudid to Percocet 10/325 every 6 hours when necessary dispense 120 with one refill I will continue the daily dose of the intrathecal medication fentanyl 140 g per day, baclofen 46.6 g per day, and bupivacaine 5.6 mg per day And patient will follow up in the pain clinic in 8 weeks
== END ==
LOC: PNWHC3 11:29
PROVIDERS: ATTEND Specialist
DX: Z45.1 Encounter for adjustment and management of infusion pump (principal); G89.29 Other chronic pain; M96.1 Postlaminectomy syndrome, not elsewhere classified; Z79.891 Long term (current) use of opiate analgesic
CPT/HCPCS: 62370

== ENCOUNTER → 2019-07-12 | Day surgery (SDC) | payer MEDICARE ==
[2019-07-12 08:21] VITALS: BP 140/84; PULSE 84; RESP 20; TEMP 97.8
--- NOTE | 2019-07-12 17:44 | P.PCN ---
Date of Procedure: 07/12/19 Procedure(s) Performed: PROCEDURE: Intrathecal pain pump analysis, programming and reprogramming, and intrathecal pain pump refill PREOPERATIVE DIAGNOSES: 1. near empty intrathecal pain pump time for refill. 2. opioid tolerance 3. failed back surgery syndrome, lumbar area POSTOPERATIVE DIAGNOSES: 1. near empty intrathecal pain pump time for refill. 2. opioid tolerance 3. failed back surgery syndrome, lumbar area ANESTHESIA: None. CONDITION: Stable. INDICATION: This is a 54-year-old patient with a long history of chronic pain secondary to PLPS and with a long history of opioid tolerance. Patient previously had an intrathecal pump placed, which is now close to empty, and patient presents for refill today. Patient denies any side effects of the intra thecal medication, including new weakness, new numbness, excessive drowsiness or sleepiness, nausea/vomiting, weight gain, or night sweats. Patient also denies suicidal ideation, and reports that the current pain medication is helping control the chronic pain and improve the patient's activities of daily living. Patient reported that she having severe pain in her low back area and she has some numbness and tingling in her left lower extremity, she denies any motor or sensory deficit, she reported that her pain level is always significantly high ,and the current medications is not helping enough to control her pain, for this reason we discussed with the patient the option of increasing the intrathecal pain medication , hopefully this will improve her pain DESCRIPTION: The intrathecal pain pump was analyzed and showed that the patient currently has reservoir volume of [4.7] mL. volume removed 8 mL The patient is receiving intrathecal fentanyl PF at concentration [300 ] mcg/ ml, and bupivacaine PF at concentration [12] mg/ml, and baclofen [100] mcg/ml. Patient receiving daily dose of fentanyl [140] mcg/day, bupivacaine [5.6] mg/day, and baclofen [46.6] mcg/day. The location of the pump (left buttock) was prepped with chlorhexidine x3. Then, the 22-gauge needle from the [employer] kit was advanced through the pump port. Total of [8] ml was removed from the pump, and it was refilled with the new medication total volume of [40] ml of a solution containing intrathecal fentanyl PF at concentration [300] mcg/ ml, and bupivacaine PF at concentration [12] mg/ml, and baclofen [100 ] mcg/ml. The patient reported that her pain level 4/10, "and she is not able to do activity of daily living secondary to the pain ,and she is using percocet 10/325 every 4-6 hours when necessary dispense 120 with 2 refill I will increase the daily dose of the intrathecal medication fentanyl 160 g per day, baclofen 53 g per day, and bupivacaine 6.4 mg per day, which is equal to 14% increase in the daily dose, - PQRS measures = - Patient's medications are documented in the chart. -Tobacco use is positive, and counseling.Given. -Patient's has not received pneumococcal vaccine. -Advanced care planning discussed, patient not eligible. -Opiate contract signed. -Pain positive and follow-up visit/procedure is scheduled. -Patient's blood pressure measured [ 120/82 ] , and documented in the record ,and patient will follow up with the primary care. -Patient's weight was measured and body mass index [27.1 ] above the, and counseling was done. and patient instructed to follow-up with the primary care physician. -Patient was not identified as an unhealthy alcohol user
== END ==
LOC: PNWHC3 06:57
PROVIDERS: ATTEND Specialist
DX: Z45.1 Encounter for adjustment and management of infusion pump (principal); G89.29 Other chronic pain; M96.1 Postlaminectomy syndrome, not elsewhere classified; Z72.0 Tobacco use; Z79.891 Long term (current) use of opiate analgesic
CPT/HCPCS: 62370

== ENCOUNTER → 2019-09-15 | Day surgery (SDC) | payer MEDICARE ==
[2019-09-15 13:06] VITALS: BP 143/83; PULSE 98; RESP 18
--- NOTE | 2019-09-15 13:16 | P.PCN ---
Date of Procedure: 09/15/19 Procedure(s) Performed: PROCEDURE: Intrathecal pain pump analysis, programming and reprogramming, and intrathecal pain pump refill PREOPERATIVE DIAGNOSES: 1. near empty intrathecal pain pump time for refill. 2. opioid tolerance 3. failed back surgery syndrome, lumbar area POSTOPERATIVE DIAGNOSES: 1. near empty intrathecal pain pump time for refill. 2. opioid tolerance 3. failed back surgery syndrome, lumbar area ANESTHESIA: None. CONDITION: Stable. INDICATION: This is a 54-year-old patient with a long history of chronic pain secondary to PLPS and with a long history of opioid tolerance. Patient previously had an intrathecal pump placed, which is now close to empty, and patient presents for refill today. Patient denies any side effects of the intrathecal medication, including new weakness, new numbness, excessive drowsiness or sleepiness, nausea/vomiting, weight gain, or night sweats. Patient also denies suicidal ideation, and reports that the current pain medication is helping control the chronic pain and improve the patient's activities of daily living. DESCRIPTION: The intrathecal pain pump was analyzed and showed that the patient currently has reservoir volume of [5.1] mL. volume removed 8 mL The patient is receiving intrathecal fentanyl PF at concentration [300 ] mcg/ ml, and bupivacaine PF at concentration [12] mg/ml, and baclofen [100] mcg/ml. Patient receiving daily dose of fentanyl [160] mcg/day, bupivacaine [6.4] mg/day, and baclofen [53.4] mcg/day. The location of the pump (left buttock) was prepped with chlorhexidine x3. Then, the 22-gauge needle from the [employer] kit was advanced through the pump port. Total of [8] ml was removed from the pump, and it was refilled with the new medication total volume of [40] ml of a solution containing intrathecal fentanyl PF at concentration [300] mcg/ ml, and bupivacaine PF at concentration [12] mg/ml, and baclofen [100 ] mcg/ml. The patient reported that her pain level 4/10, ,and she is using percocet 10/325 every 4-6 hours when necessary dispense 120 with 2 refill She reports that she has been to see Dr. Roy, she is scheduled to undergo computed tomography scan of the lumbar spine with and without contrast. She is being evaluated for repeat lumbar surgery. Urine drug screen ordered today - PQRS measures = - Patient's medications are documented in the chart. -Tobacco use is positive, and counseling.Given. -Patient's has not received pneumococcal vaccine. -Advanced care planning discussed, patient not eligible. -Opiate contract signed. -Pain positive and follow-up visit/procedure is scheduled. -Patient's blood pressure measured and is elevated,and patient will follow up with the primary care. -Patient's weight was measured and body mass index [27.4 ] and is within normal limits -Patient was not identified as an unhealthy alcohol user
== END ==
LOC: PNWHC3 12:12
PROVIDERS: ATTEND Anesthesiology
DX: Z45.1 Encounter for adjustment and management of infusion pump (principal); Z79.891 Long term (current) use of opiate analgesic; G89.29 Other chronic pain; M96.1 Postlaminectomy syndrome, not elsewhere classified
CPT/HCPCS: 80307; 62370; G0482

== ENCOUNTER → 2019-11-23 | Day surgery (SDC) | payer MEDICARE ==
[2019-11-23 12:54] VITALS: BP 137/71; PULSE 115; RESP 18
--- NOTE | 2019-11-23 13:26 | P.PN ---
Progress Note - Text Progress Note Date: 11/23/19 This is an addendum to the note dictated earlier today= This patient complaining of vague pelvic pain mainly on the left side. 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
--- NOTE | 2019-11-23 13:26 | P.PCN ---
Date of Procedure: 11/23/19 Procedure(s) Performed: PROCEDURE: Intrathecal pain pump analysis, programming and reprogramming, and intrathecal pain pump refill PREOPERATIVE DIAGNOSES: 1. near empty intrathecal pain pump time for refill. 2. opioid tolerance 3. failed back surgery syndrome, lumbar area POSTOPERATIVE DIAGNOSES: 1. near empty intrathecal pain pump time for refill. 2. opioid tolerance 3. failed back surgery syndrome, lumbar area ANESTHESIA: None. CONDITION: Stable. INDICATION: This is a 54-year-old patient with a long history of chronic pain secondary to PLPS and with a long history of opioid tolerance. Patient previously had an intrathecal pump placed, which is now close to empty, and patient presents for refill today. Patient denies any side effects of the intra thecal medication, including new weakness, new numbness, excessive drowsiness or sleepiness, nausea/vomiting, weight gain, or night sweats. Patient also denies suicidal ideation, and reports that the current pain medication is helping control the chronic pain and improve the patient's activities of daily living. DESCRIPTION: The intrathecal pain pump was analyzed and showed that the patient currently has reservoir volume of [3.2 ] mL. volume removed 3.2 mL The patient is receiving intrathecal fentanyl PF at concentration [300 ] mcg/ ml, and bupivacaine PF at concentration [12] mg/ml, and baclofen [100] mcg/ml. Patient receiving daily dose of fentanyl [160] mcg/day, bupivacaine [6.4] mg/day, and baclofen [53.4] mcg/day. The location of the pump (left buttock) was prepped with chlorhexidine x3, then 22-gauge needle from the [employer] kit was advanced through the pump port. Total of [3.2] ml was removed from the pump, and it was refilled with the new medication total volume of [40] ml of a solution containing intrathecal fentanyl PF at concentration [300] mcg/ ml, and bupivacaine PF at concentration [12] mg/ml, and baclofen [100 ] mcg/ml. The patient reported that her pain level 8/10, ,and she is using percocet 10/325 every 4-6 hours and she continued to complain of severe low back pain Mainly on the left side with radiation to the left buttock and also patient complaining of severe pelvic pain, vague in nature I increase the intrathecal pain pump infusion 10% which means that patient start receiving daily dose of fentanyl 176 g per day, bupivacaine 7 mg per day and baclofen 58.7 g per day, I would discontinue Percocet and I will start patient on Dilaudid 4 mg by mouth every 8 hours when necessary for pain dispense 90 with 2 refills Physical Examinations : -Constitutiona : Cooperative , not in acute distress . -HEENT : nech : supple , no Lymphadenopathy , normal thyroid size . : eyes : no ptosis , no icterus, no photophobia . - neurologic : Cranial nerve II to XII intact , no focal neurological deffecit . -psychatric : alert , oriented X 3 , appropriate affect , intact judgment and insight . -Lymphatic : no Lymphadenopathy . - musculoskeltal : Lumber spine moter stegnth lower extremities ,thigh and legs 5/5 Right side , 5/5 Left side deep tendon reflexes : normal Knee Jerk , normal ankle Jerk lumber facet Loading Test =positive Right , positive Left Range of motion of the lumbar spine Flexion 30 degrees, extension 10 degrees strait leg raising test = positive at 30 degree Fabere test= positive Right , and positive LT . Sever tenderness over the Sacroiliac joint on the Left sides Gaenslen test= positive left . Seated flexion test= positive Left . Assessment and plan=1-failed back surgery syndrome and lumbar area 2-left sacroiliitis 3-pelvic pain Patient could benefit from left sacroiliac joint steroid injection under fluoroscopy guidance, also I will increase the intrathecal pain pump 10% which is increased to fentanyl 176 g per day and bupivacaine 27 mg per day and baclofen 58.7 g per day, I will discontinue Percocet because patient had side effects from the Percocet constipation and she reported that she has no benefit from it, I will start patient on Dilaudid 4 mg every 4 hours when necessary di spense 90 with 2 refills - PQRS measures = - Patient's medications are documented in the chart. -Tobacco use is positive, and counseling.Given. -Patient's has not received pneumococcal vaccine. -Advanced care planning discussed, patient not eligible. -Opiate contract signed. -Pain positive and follow-up visit/procedure is scheduled. -Patient's blood pressure measured 137/71,and patient will follow up with the primary care. -Patient's weight was measured and body mass index [28.3 ] and is within normal limits -Patient was not identified as an unhealthy alcohol user
== END ==
LOC: PNWHC3 12:28
PROVIDERS: ATTEND Specialist
DX: Z45.1 Encounter for adjustment and management of infusion pump (principal); M96.1 Postlaminectomy syndrome, not elsewhere classified; Z79.891 Long term (current) use of opiate analgesic; R10.2 Pelvic and perineal pain
CPT/HCPCS: 62370; 99211

== ENCOUNTER 2019-12-13 12:18 | Day surgery (SDC) | payer MEDICARE ==
[2019-12-09 12:59] VITALS: BMI 29.2
[~2019-12-13 12:18] MED LIST changes: +LACTATED RINGERS 1,000 ML IV SCH; -SODIUM CHLORIDE 0.9% 500 ML 500 ML IV ONE; -SODIUM CHLORIDE 0.9% 500 ML 500 ML IV SCH
[2019-12-13 12:37] VITALS: RESP 16; TEMP 96.9
[2019-12-13] MEDS ORDERED: LIDOCAINE 1% (10MG/ML) FOR IV START INTRADERMA ONE (12:37)
[2019-12-13] MEDS ORDERED: ROPIVACAINE 5MG/ML 20ML VIAL ONE (13:00)
[2019-12-13] MEDS ORDERED: fentaNYL (PF) 50 MCG/ML 2 ML AMP ONE (13:00)
[2019-12-13] MEDS ORDERED: methylPREDNISolone ACETATE 40 MG/ML 1 ML VIAL ONE (13:00)
[2019-12-13] MEDS ORDERED: MIDAZOLAM 2 MG/2 ML VIAL ONE (13:00)
--- NOTE | 2019-12-13 13:17 | P.PCN ---
Date of Procedure: 12/13/19 Procedure(s) Performed: Procedure= bilateral sacroiliac joints steroid injection under fluoroscopy guidance (fluoroscopy image stored on file in the radiology Department ) Preoperative diagnosis= 1-left sacroiliitis 2-lumbar failed back surgery syndrome Postoperative diagnosis=Same as preop Diagnosis . Complication = none Condition= stable Anesthesia= moderate sedation with intravenous Versed 2 mg , and fentanyl 100 micrograms . Indication for the procedure= patient complaining of low back pain , examination was positive for severe tenderness over the sacroiliac joints bilaterally and patient diagnosed with sacroiliitis, for this reason she was good candidate for sacroiliac joint steroid injection. Description of the procedure= procedure risk and benefits discussed with the patient, including but not limited, risk of infection and bleeding, and ALLERGIC reaction to the medication and not complete pain relief and patient agreed with the preceding patient taken to the operating room, placed in prone position or standard monitors applied to the patient then after induction of anesthesia back prepped with chlorhexidine 3 times ,. Then the left sacroiliac joint steroid injection done under strict sterile technique local infiltration of the skin and subcu interstitial at the location of the left sacroiliac joint then a 25-gauge Quincke Needle advanced slowly under fluoroscopy time placed in the left sacroiliac joint, needle placement confirmed with AP and oblique and lateral view then after appropriate needle placement confirmed and after negative aspiration 0.5% Marcaine 3 mL and 40 mg of Depo-Medrol injected in the left sacroiliac joint after negative aspiration patient tolerated the procedure well that any complications and she will follow up in clinic 3 weeks
[2019-12-13] MEDS ORDERED: IV FLUID CONTINUATION 600 ML IV ONE ×2 (13:18)
--- NOTE | 2019-12-13 13:44 | FL ---
EXAMINATION TYPE: FL guided pain mgmt statistic DATE OF EXAM: 12/13/2019 HISTORY: Fluoroscopy time 2 seconds of fluoroscopy provided. IMPRESSION: 1. Fluoroscopy time.
[2019-12-13 13:45] VITALS: BP 127/71; PULSE 87
== END 2019-12-13 13:59 | disposition home or self-care (01) ==
LOC: ORPAIN 12:18
PROVIDERS: ATTEND Specialist
DX: M46.1 Sacroiliitis, not elsewhere classified (principal); M96.1 Postlaminectomy syndrome, not elsewhere classified; Z91.041 Radiographic dye allergy status
CPT/HCPCS: J2250; J1030; J3010; J2795; G0260; 27096

== ENCOUNTER → 2020-01-18 | Day surgery (SDC) | payer MEDICARE ==
[2020-01-18 12:53] VITALS: BP 122/61; PULSE 103; RESP 18; TEMP 98.8
--- NOTE | 2020-01-18 13:50 | P.PCN ---
Date of Procedure: 01/18/20 Surgeon: Vernon Torres Pathology: none sent Condition: stable Description of Procedure: OPERATION: Intrathecal pain pump analysis, programming and reprogramming, intrathecal pain pump refill. PREOPERATIVE DIAGNOSES: 1. near empty intrathecal pain pump . 2. opioid tolerance 3. failed back surgery syndrome lumbar area POSTOPERATIVE DIAGNOSES: 1.opioid tolerance 2. failed back surgery syndrome lumbar area ANESTHESIA: None. CONDITION: Stable. Description of the procedure; The intrathecal opioid pump was analyzed and showed a current reservoir residual volume of 7.2 mls. Skin was prepped with ChloraPrep and draped in a sterile manner. I used 22- gauge needle found in the [employer] intrathecal access to go through the central pump port. 9.2 mls were withdrawn. Then the new medication was injected incrementally with frequent aspiration to ensure delivery of the new medication inside the pump reservoir. The new medication was infused inside the pump reservoir through a filter provided the [employer] kit. The new medication concentration is: Fentanyl 300 g per mL, baclofen 100 mics per mL, bupivacaine 12 mg per mL. The pump then was reprogrammed for a new reservoir volume of 40 mls and the rate of s176.13 mcg/day. The patient tolerated the procedure well. The patient denies any new neurologic symptoms in the lower extremities. The patient has positive Sam's test on the right side and increasing pain in her lower back on the right side. She did have left sacroiliac joint steroid injection a few weeks ago which helped her pain significantly on the left side. She requested to have an injection in her right sacroiliac joint.
== END ==
LOC: PNWHC3 12:29
PROVIDERS: ATTEND Anesthesiology
DX: Z45.1 Encounter for adjustment and management of infusion pump (principal); M96.1 Postlaminectomy syndrome, not elsewhere classified; Z79.891 Long term (current) use of opiate analgesic
CPT/HCPCS: 62370

== ENCOUNTER → 2020-03-21 | Day surgery (SDC) | payer MEDICARE ==
[2020-03-21 12:08] VITALS: BP 122/87; PULSE 95; RESP 18; TEMP 99.1
--- NOTE | 2020-03-21 12:33 | P.PCN ---
Date of Procedure: 03/21/20 Description of Procedure: Surgeon: Vernon Torres Pathology: none sent Condition: stable Description of Procedure: OPERATION: Intrathecal pain pump analysis, programming and reprogramming, intrathecal pain pump refill. PREOPERATIVE DIAGNOSES: 1. near empty intrathecal pain pump . 2. opioid tolerance 3. failed back surgery syndrome lumbar area POSTOPERATIVE DIAGNOSES: 1.opioid tolerance 2. failed back surgery syndrome lumbar area ANESTHESIA: None. CONDITION: Stable. Description of the procedure; The intrathecal opioid pump was analyzed and showed a current reservoir residual volume of 3.1 mls. Skin was prepped with ChloraPrep and draped in a sterile manner. I used 22- gauge needle found in the [employer] intrathecal access to go through the central pump port. 5.0 mls were withdrawn. Then the new medication was injected incrementally with frequent aspiration to ensure delivery of the new medication inside the pump reservoir. The new medication was infused inside the pump reservoir through a filter provided the [employer] kit. The new medication concentration is: Fentanyl 300 g per mL, baclofen 100 mics per mL, bupivacaine 12 mg per mL. The pump then was reprogrammed for a new reservoir volume of 40 mls and the rate of s176.13 mcg/day. The patient tolerated the procedure well. The patient sometimes feels that her heels are very sensitive to touch and if this continues or become worse might need to be on antiseizure medications including either Neurontin or Lyrica.
== END ==
LOC: PNWHC3 11:52
PROVIDERS: ATTEND Anesthesiology
DX: Z45.1 Encounter for adjustment and management of infusion pump (principal); M96.1 Postlaminectomy syndrome, not elsewhere classified; Z79.891 Long term (current) use of opiate analgesic
CPT/HCPCS: 80307; 62370; G0482

== ENCOUNTER → 2020-05-16 | Day surgery (SDC) | payer MEDICARE ==
[~2020-05-16] MED LIST changes: +BUPIVACAINE 8.1-40 MG/ML, 31-60 ML SYRINGE MC ONE; -LACTATED RINGERS 1,000 ML IV SCH; +[UNRECOGNIZED DRUG - OTHER] MISCELLANE ONE; +[UNRECOGNIZED DRUG - REMARK] MISCELLANE ONE
--- NOTE | 2020-05-16 12:53 | P.PCN ---
Date of Procedure: 05/16/20 Description of Procedure: OPERATION: Intrathecal pain pump analysis, programming and reprogramming, intrathecal pain pump refill. PREOPERATIVE DIAGNOSES: 1. near empty intrathecal pain pump . 2. opioid tolerance 3. failed back surgery syndrome lumbar area POSTOPERATIVE DIAGNOSES: 1.opioid tolerance 2. failed back surgery syndrome lumbar area ANESTHESIA: None. CONDITION: Stable. Description of the procedure; The intrathecal opioid pump was analyzed and showed a current reservoir residual volume of 7 mls. Skin was prepped with ChloraPrep and draped in a sterile manner. I used 22- gauge needle found in the [employer] intrathecal access to go through the central pump port. 9.5 mls were withdrawn. Then the new medication was injected incrementally with frequent aspiration to ensure delivery of the new medication inside the pump reservoir. The new medication was infused inside the pump reservoir through a filter provided the [employer] kit. The new medication concentration is: Fentanyl 300 g per mL, baclofen 100 mics per mL, bupivacaine 12 mg per mL. The pump then was reprogrammed for a new reservoir volume of 40 mls and the rate of s176.13 mcg/day. The patient tolerated the procedure well. .
[2020-05-16 13:38] VITALS: BP 103/79; PULSE 99; RESP 16; TEMP 99.2
== END ==
LOC: PNWHC3 12:26
PROVIDERS: ATTEND Anesthesiology
DX: M96.1 Postlaminectomy syndrome, not elsewhere classified (principal); Z45.1 Encounter for adjustment and management of infusion pump; Z79.891 Long term (current) use of opiate analgesic
CPT/HCPCS: 62370; J0475; J3010

== ENCOUNTER → 2020-07-11 | Day surgery (SDC) | payer MEDICARE ==
[2020-07-11 13:04] VITALS: BP 112/80; PULSE 110; RESP 16; TEMP 98.3
--- NOTE | 2020-07-11 13:28 | P.PCN ---
Date of Procedure: 07/11/20 Procedure(s) Performed: PROCEDURE: Intrathecal pain pump analysis, programming and reprogramming, and intrathecal pain pump refill PREOPERATIVE DIAGNOSES: 1. near empty intrathecal pain pump time for refill. 2. opioid tolerance 3. failed back surgery syndrome, lumbar area POSTOPERATIVE DIAGNOSES: 1. near empty intrathecal pain pump time for refill. 2. opioid tolerance 3. failed back surgery syndrome, lumbar area ANESTHESIA: None. CONDITION: Stable. INDICATION: This is a 55-year-old patient with a long history of chronic pain secondary to PLPS and with a long history of opioid tolerance. Patient previously had an intrathecal pump placed, which is now close to empty, and patient presents for refill today. Patient denies any side effects of the intra thecal medication, including new weakness, new numbness, excessive drowsiness or sleepiness, nausea/vomiting, weight gain, or night sweats. Patient also denies suicidal ideation, and reports that the current pain medication is helping control the chronic pain and improve the patient's activities of daily living. DESCRIPTION: The intrathecal pain pump was analyzed and showed that the patient currently has reservoir volume of [7.2 ] mL. volume removed 9 mL The patient is receiving intrathecal fentanyl PF at concentration [300 ] mcg/ ml, and bupivacaine PF at concentration [12] mg/ml, and baclofen [100] mcg/ml. Patient receiving daily dose of fentanyl [176] mcg/day, bupivacaine [7.04] mg/day, and baclofen [58.7] mcg/day. The location of the pump (left buttock) was prepped with chlorhexidine x3, then 22-gauge needle from the [employer] kit was advanced through the pump port. Total of [9] ml was removed from the pump, and it was refilled with the new m edication total volume of [40] ml of a solution containing intrathecal fentanyl PF at concentration [300] mcg/ ml, and bupivacaine PF at concentration [12] mg/ml, and baclofen [100 ] mcg/ml. I increase the intrathecal pain pump infusion 7 % which means that patient start receiving daily dose of fentanyl 188.4 g per day, bupivacaine 7.5 mg per day and baclofen 62 g per day. Patient reported that her low back pain is not controlled with the current regimen, and the Dilaudid lasting only for 4 hours, I will change Dilaudid to Percocet 10/325 every 6 hours when necessary dispense 90 with 1 refill Physical Examinations : -Constitutiona : Cooperative , not in acute distress . -HEENT : nech : supple , no Lymphadenopathy , normal thyroid size . : eyes : no ptosis , no icterus, no photophobia . - neurologic : Cranial nerve II to XII intact , no focal neurological deffecit . -psychatric : alert , oriented X 3 , appropriate affect , intact judgment and insight . -Lymphatic : no Lymphadenopathy . - musculoskeltal : Lumber spine moter stegnth lower extremities ,thigh and legs 5/5 Right side , 5/5 Left side deep tendon reflexes : normal Knee Jerk , normal ankle Jerk lumber facet Loading Test =positive Right , positive Left Range of motion of the lumbar spine Flexion 30 degrees, extension 10 degrees strait leg raising test = positive at 30 degree Fabere test= positive Right , and positive LT . Sever tenderness over the Sacroiliac joint on the Left sides Gaenslen test= positive left . Seated flexion test= positive Left . - PQRS measures = - Patient's medications are documented in the chart. -Tobacco use is positive, and counseling.Given. -Patient's has not received pneumococcal vaccine. -Advanced care planning discussed, patient not eligible. -Opiate contract signed. -Pain positive and follow-up visit/procedure is scheduled. -Patient's blood pressure measured 112/80,and patient will follow up with the primary care. -Patient's weight was measured and body mass index [28.3 ] and is within normal limits -Patient was not identified as an unhealthy alcohol user
== END ==
LOC: PNWHC3 12:30
PROVIDERS: ATTEND Specialist
DX: Z45.1 Encounter for adjustment and management of infusion pump (principal); M96.1 Postlaminectomy syndrome, not elsewhere classified; Z79.891 Long term (current) use of opiate analgesic
CPT/HCPCS: 62370; J0475; J3010

== ENCOUNTER → 2020-08-15 | Outpatient (CLI) | payer MEDICARE ==
--- NOTE | 2020-08-15 16:58 | XR ---
EXAMINATION TYPE: XR knee complete LT DATE OF EXAM: 08/15/2020 CLINICAL HISTORY: 55-year-old female with left knee pain. Known injury TECHNIQUE: Three views of the left knee are obtained. COMPARISON: Left FINDINGS: There is no acute fracture/dislocation evident in the left knee. There is moderate narrowi ng of the medial compartment joint space and patellofemoral compartment joint space. Multiple osteoph ytes are seen. Osteophytic spurring of the tibial spines as well. No significant joint effusion. Soft tissues are unremarkable. IMPRESSION: 1. No acute fracture or dislocation of the left knee. There is moderate osteoarthritis of the left kn ee.
--- NOTE | 2020-08-15 16:59 | XR ---
EXAMINATION TYPE: XR femur LT DATE OF EXAM: 08/15/2020 CLINICAL HISTORY: 55-year-old female with left femur pain. No known injury. TECHNIQUE: Two views of the left femur femur are obtained. COMPARISON: None FINDINGS: There is no acute fracture or dislocation seen in the left femur. Moderate osteoarthritis of the left knee with osteophytes and medial and patellofemoral compartment joint space narrowing. Th ere is mild osteoarthritis of the left hip with mild superior compartment joint space narrowing and s ubchondral sclerosis of the acetabulum.
== END | disposition home or self-care (01) ==
LOC: RADXRMAIN 13:59
PROVIDERS: ATTEND Family Medicine
DX: M17.12 Unilateral primary osteoarthritis, left knee (principal); M16.12 Unilateral primary osteoarthritis, left hip

== ENCOUNTER → 2020-09-05 | Day surgery (SDC) | payer MEDICARE ==
[~2020-09-05] MED LIST changes: -BUPIVACAINE 8.1-40 MG/ML, 31-60 ML SYRINGE MC ONE; +BUPIVACAINE UP TO 8 MG/ML, 31-60 ML SYRINGE MC ONE; +HYDROMORPHONE FOR ANAZAO - PER 4 MG MISCELLANE ONE; -[UNRECOGNIZED DRUG - REMARK] MISCELLANE ONE
[2020-09-05 12:40] VITALS: BP 148/97; PULSE 108; RESP 18; TEMP 98.9
--- NOTE | 2020-09-06 11:45 | P.PCN ---
Date of Procedure: 09/05/20 Description of Procedure: PROCEDURE: Intrathecal pain pump analysis, programming and reprogramming, and intrathecal pain pump refill PREOPERATIVE DIAGNOSES: 1. near empty intrathecal pain pump time for refill. 2. opioid tolerance 3. failed back surgery syndrome, lumbar area POSTOPERATIVE DIAGNOSES: 1. near empty intrathecal pain pump time for refill. 2. opioid tolerance 3. failed back surgery syndrome, lumbar area ANESTHESIA: None. CONDITION: Stable. INDICATION: This is a 55-year-old patient with a long history of chronic pain secondary to PLPS and with a long history of opioid tolerance. Patient previously had an intrathecal pump placed, which is now close to empty, and patient presents for refill today. Patient denies any side effects of the intrathecal medication, including new weakness, new numbness, excessive drowsiness or sleepiness, nausea/vomiting, weight gain, or night sweats. Patient also denies suicidal ideation, and reports that the current pain medication is helping control the chronic pain and improve the patient's activities of daily living. DESCRIPTION: The intrathecal pain pump was analyzed and showed that the patient currently has reservoir volume of [4.9] mL. volume removed 7.2 mL The patient is receiving intrathecal fentanyl PF at concentration [300 ] mcg/ ml, and bupivacaine PF at concentration [12] mg/ml, and baclofen [100] mcg/ml. Patient receiving daily dose of fentanyl [176] mcg/day, bupivacaine [7.04] mg/day, and baclofen [58.7] mcg/day. We are changing her solution to dilaudid 6 mg/ml, bupivacaine 3 mg/ml, and balcofen 50 mcg/ml The location of the pump (left buttock) was prepped with chlorhexidine x3, then 22-gauge needle from the [employer] kit was advanced through the pump port. Total of [9] ml was removed from the pump, and it was refilled with the new medication total volume of [40] ml of a solution containing dilaudid PF at concentration [6 ] mg/ ml, and bupivacaine PF at concentration [3] mg/ml, and baclofen [50] mcg/ml. New settings will have patient receiving dilaudid 0.7052 mg/day, baclofen 6.252 mcg/day, and bupivacaine 0.96550 mg/day I also refilled Percocet 10/325 every 6 hours when necessary dispense 90 with 1 refill
== END ==
LOC: PNWHC3 12:31
PROVIDERS: ATTEND Anesthesiology
DX: Z45.1 Encounter for adjustment and management of infusion pump (principal); M96.1 Postlaminectomy syndrome, not elsewhere classified; Z79.891 Long term (current) use of opiate analgesic
CPT/HCPCS: 62370; J1170; J0475

== ENCOUNTER → 2020-09-07 | Outpatient (CLI) | payer MEDICARE ==
--- NOTE | 2020-09-05 13:10 | P.PCN ---
Date of Procedure: 09/05/20 Description of Procedure: PROCEDURE: Intrathecal pain pump analysis, programming and reprogramming, and intrathecal pain pump refill PREOPERATIVE DIAGNOSES: 1. near empty intrathecal pain pump time for refill. 2. opioid tolerance 3. failed back surgery syndrome, lumbar area POSTOPERATIVE DIAGNOSES: 1. near empty intrathecal pain pump time for refill. 2. opioid tolerance 3. failed back surgery syndrome, lumbar area ANESTHESIA: None. CONDITION: Stable. INDICATION: This is a 55-year-old patient with a long history of chronic pain secondary to PLPS and with a long history of opioid tolerance. Patient previously had an intrathecal pump placed, which is now close to empty, and patient presents for refill today. Patient denies any side effects of the intrathecal medication, including new weakness, new numbness, excessive drowsiness or sleepiness, nausea/vomiting, weight gain, or night sweats. Patient also denies suicidal ideation, and reports that the current pain medication is helping control the chronic pain and improve the patient's activities of daily living. DESCRIPTION: The intrathecal pain pump was analyzed and showed that the patient currently has reservoir volume of [4.9] mL. volume removed 7.2 mL The patient is receiving intrathecal fentanyl PF at concentration [300 ] mcg/ ml, and bupivacaine PF at concentration [12] mg/ml, and baclofen [100] mcg/ml. Patient receiving daily dose of fentanyl [176] mcg/day, bupivacaine [7.04] mg/day, and baclofen [58.7] mcg/day. We are changing her solution to dilaudid 6 mg/ml, bupivacaine 3 mg/ml, and balcofen 50 mcg/ml The location of the pump (left buttock) was prepped with chlorhexidine x3, then 22-gauge needle from the [employer] kit was advanced through the pump port. Total of [9] ml was removed from the pump, and it was refilled with the new medication total volume of [40] ml of a solution containing dilaudid PF at concentration [6 ] mg/ ml, and bupivacaine PF at concentration [3] mg/ml, and baclofen [50] mcg/ml. New settings will have patient receiving dilaudid 0.7052 mg/day, baclofen 6.252 mcg/day, and bupivacaine 0.23668 mg/day I also refilled Percocet 10/325 every 6 hours when necessary dispense 90 with 1 refill
--- NOTE | 2020-09-07 15:35 | CT ---
EXAMINATION TYPE: CT lower extremity LT wo con DATE OF EXAM: 09/07/2020 COMPARISON: None HISTORY: Pain from left hip to knee x [address] DLP: 806.7 mGycm Automated exposure control for dose reduction was used. Contrast: None Technique: Axial images 2 mm thick sections. Reconstructed images in the coronal and sagittal plane. Images were obtained from the hip through the knee. FINDINGS: No acute fractures are identified. Muscle density appears normal. Subcutaneous tissues are unremarkab le. Popliteal cyst appears to be present measuring 3.4 x 2.3 cm. Small joint effusion is present. Three-D reconstructed images performed on a separate computer reconstructed and reviewed. There is loss of joint space within the medial compartment of the right knee. Mild narrowing of the l ateral compartment of the knee is present. Medial and lateral femoral condylar and tibial plateau spu rring is present. Some degenerative sclerosis within the medial compartment left knee. IMPRESSION: 1. NO ACUTE FRACTURES LEFT FEMUR. 2. DEGENERATIVE CHANGES AT THE KNEE APPEAR MODERATE TO ADVANCED AND [id number] AT THE HIP. 3. POPLITEAL CYST. 4. SMALL KNEE JOINT EFFUSION
== END | disposition home or self-care (01) ==
LOC: RADCTMAIN 13:58
PROVIDERS: ATTEND Family Medicine
DX: M16.12 Unilateral primary osteoarthritis, left hip (principal); M71.22 Synovial cyst of popliteal space [Baker], left knee

== ENCOUNTER → 2020-09-10 | Outpatient (CLI) | payer MEDICARE ==
[2020-09-10 13:34] VITALS: BP 110/79; PULSE 105; RESP 18; TEMP 98.1
--- NOTE | 2020-09-10 13:58 | P.PCN ---
Date of Procedure: 09/10/20 Procedure(s) Performed: OPERATION: Intrathecal pain pump analysis, programming and reprogramming. PREOPERATIVE DIAGNOSES: 1. Severe pain. 2. 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 ANESTHESIA: None. CONDITION: Stable. Description of the procedure; This is 55 years old female with a history of failed back surgery syndrome, she is on intrathecal pain medication therapy, and last visit we changed her pain medication from fentanyl to Dilaudid, and patient was started on low dose of Dilaudid and she is here today to address her pain medication, she is complaining of severe pain, generalized that is mostly localized in the low back area and upper back may area, for this reason the patient is here today to adjust her intrathecal pain medication and increase her does Intrathecal pain pump analysed ,it showed patient currently had reservoir volume[ 39.4 ] mL. Patient currently on Dilaudid concentration 6 mg per mL and baclofen concentration 50 g per mL and bupivacaine 3 mg per mL, and patient receiving a daily dose of Dilaudid 0.75 mg per day and baclofen 6.25 g per day and bupivacaine 0.37 mg per day, patient reported that she is complaining of severe pain, since we started the new medication for this reason I discussed with the patient the option of giving her a bolus of pain medication patient will receive a single bolus of Dilaudid 0.3 mg over 10 minutes and increase the daily dose of the medication by 20% patient will receive Dilaudid 0.9 mg per day and baclofen 7.5 g per day and bupivacaine 0.45 mg per day and patient will follow up in the pain clinic in 2 months for pump refill and also patient given prescription for Percocet 10/325 every 8 hours when necessary for pain for breakthrough pain
== END ==
LOC: PNWHC3 13:16
PROVIDERS: ATTEND Specialist
DX: M54.5 Low back pain (principal); M96.1 Postlaminectomy syndrome, not elsewhere classified; F17.200 Nicotine dependence, unspecified, uncomplicated; Z91.041 Radiographic dye allergy status
CPT/HCPCS: 99211

== ENCOUNTER → 2020-11-28 | Day surgery (SDC) | payer MEDICARE ==
[2020-11-28 13:41] VITALS: BP 104/76; PULSE 93; RESP 18; TEMP 98.4
--- NOTE | 2020-11-28 14:16 | P.PCN ---
Date of Procedure: 11/28/20 Surgeon: Vernon Torres Pathology: none sent Condition: stable Disposition: other Description of Procedure: Procedure: Intrathecal pain pump analysis, programming and reprogramming, int rathecal pain pump refill. PREOPERATIVE DIAGNOSES: 1. near empty intrathecal pain pump . 2. opioid tolerance 3. failed back surgery syndrome lumbar area POSTOPERATIVE DIAGNOSES: 1.opioid tolerance 2. failed back surgery syndrome lumbar area ANESTHESIA: None. CONDITION: Stable. Description of the procedure; The intrathecal opioid pump was analyzed and showed a current reservoir residual volume of 27 mls. Skin was prepped with ChloraPrep and draped in a sterile manner. I used 22- gauge needle found in the [employer] intrathecal access to go through the central pump port. 27.5 mls were withdrawn. Then the new medication was injected incrementally with frequent aspiration to ensure delivery of the new medication inside the pump reservoir. The new medication was infused inside the pump re servoir through a filter provided the [employer] kit. The new medication concentration is: Dilaudid 6 ng per mL plus baclofen 50 g per mL plus bupivacaine 3 mg per mL The pump then was reprogrammed for a new reservoir volume of 40 mls and the rate of Dilaudid is currently at 0.9 mg/d. The rate is increased to 1.02 mg per day and the patient received a bolus of Dilaudid of 0.05 mg over 15 minutes. The patient tolerated the procedure well. The patient states that her pain has been getting worse lately with more weakness in the lower extremities. By physical exam she has a overreactive right knee reflex compared to the left side and absent right ankle reflex but normal left ankle reflex. Oral opioids: Percocet 10 mg 3 times a day. The patient also takes Xanax 0.5 mg occasionally. I asked the patient to limit her usage of Xanax to the minimum.
== END ==
LOC: PNWHC3 13:29
PROVIDERS: ATTEND Anesthesiology
DX: M54.5 Low back pain (principal); M51.36 Other intervertebral disc degeneration, lumbar region
CPT/HCPCS: 80307; 62370; G0482; J1170; J0475

== ENCOUNTER → 2021-02-20 | Day surgery (SDC) | payer MEDICARE ==
[2021-02-20 13:51] VITALS: BP 130/80; PULSE 116; RESP 18; TEMP 98.4
--- NOTE | 2021-02-20 14:37 | P.PCN ---
Date of Procedure: 02/20/21 Procedure(s) Performed: PROCEDURE: Intrathecal pain pump analysis, programming and reprogramming, and intrathecal pain pump refill PREOPERATIVE DIAGNOSES: 1. near empty intrathecal pain pump time for refill. 2. opioid tolerance 3. failed back surgery syndrome, lumbar area POSTOPERATIVE DIAGNOSES: 1. near empty intrathecal pain pump time for refill. 2. opioid tolerance 3. failed back surgery syndrome, lumbar area ANESTHESIA: None. CONDITION: Stable. INDICATION: This is a 55-year-old patient with a long history of chronic pain secondary to PLPS and with a long history of opioid tolerance. Patient previously had an intrathecal pump placed, which is now close to empty, and patient presents for refill today. Patient denies any side effects of the intr athecal medication, including new weakness, new numbness, excessive drowsiness or sleepiness, nausea/vomiting, weight gain, or night sweats. Patient also denies suicidal ideation, and reports that the current pain medication is helping control the chronic pain and improve the patient's activities of daily living. DESCRIPTION: The intrathecal pain pump was analyzed and showed that the patient currently has reservoir volume of [25.7 ] mL. volume removed 25 mL The patient is receiving intrathecal Dilaudid PF at concentration [ 6 ] mcg/ ml, and bupivacaine PF at concentration [3 ] mg/ml, and baclofen [50] mcg/ml. Patient receiving daily dose of Dilaudid [ 1.02] mcg/day, bupivacaine [ 0.5 ] mg/day, and baclofen [ 8.5 ] mcg/day. The location of the pump (left buttock) was prepped with chlorhexidine x3, then 22-gauge needle from the [employer] kit was advanced through the pump port. Total of 25 ml was removed from the pump, and it was refilled with the new medication total volume of [40] ml of a solution containing intrathecal Dilaudid PF at concentration [6 ] mcg/ ml, and bupivacaine PF at concentration [ 3] mg/ml, and baclofen [ 50 ] mcg/ml. I increase the intrathecal pain pump infusion 10 % which means that patient start receiving daily dose of Dilaudid 1.123 mg per day, bupivacaine 0.56 mg per day and baclofen 9.3 g per day. It was patient complaining of severe pain I gave the patient simple bolus of Dilaudid which is 0.2 mg Dilaudid which is 10 over 10 minutes Patient continued to use Percocet 10/325 every 6 hours when necessary dispense 90 with 2 refill Physical Examinations : -Constitutiona : Cooperative , not in acute distress . -HEENT : nech : supple , no Lymphadenopathy , normal thyroid size . : eyes : no ptosis , no icterus, no photophobia . - neurologic : Cranial nerve II to XII intact , no focal neurological deffecit . -psychatric : alert , oriented X 3 , appropriate affect , intact judgment and insight . -Lymphatic : no Lymphadenopathy . - musculoskeltal : Lumber spine moter stegnth lower extremities ,thigh and legs 5/5 Right side , 5/5 Left side deep tendon reflexes : normal Knee Jerk , normal ankle Jerk lumber facet Loading Test =positive Right , positive Left Range of motion of the lumbar spine Flexion 30 degrees, extension 10 degrees strait leg raising test = positive at 30 degree Fabere test= positive Right , and positive LT . Sever tenderness over the Sacroiliac joint on the Left sides Gaenslen test= positive left . Seated flexion test= positive Left . - PQRS measures = - Patient's medications are documented in the chart. -Tobacco use is positive, and counseling.Given. -Patient's has not received pneumococcal vaccine. -Advanced care planning discussed, patient not eligible. -Opiate contract signed. -Pain positive and follow-up visit/procedure is scheduled. -Patient's blood pressure measured 131/80,and patient will follow up with the primary care. -Patient's weight was measured and body mass index [28.3 ] and is within normal limits -Patient was not identified as an unhealthy alcohol user
== END ==
LOC: PNWHC3 13:31
PROVIDERS: ATTEND Specialist
DX: Z45.1 Encounter for adjustment and management of infusion pump (principal); M96.1 Postlaminectomy syndrome, not elsewhere classified; Z79.891 Long term (current) use of opiate analgesic
CPT/HCPCS: 62370; J1170; J0475

== ENCOUNTER 2021-05-16 13:11 | Day surgery (SDC) | payer MEDICARE ==
[2021-05-15 13:44] VITALS: BMI 28.3
[2021-05-16] MEDS ORDERED: BUPIVACAINE UP TO 8 MG/ML, 31-60 ML SYRINGE MC ONE (13:12)
[2021-05-16] MEDS ORDERED: [UNRECOGNIZED DRUG - OTHER] MISCELLANE ONE (13:12)
[2021-05-16] MEDS ORDERED: HYDROMORPHONE FOR ANAZAO - PER 4 MG MISCELLANE ONE (13:12)
[2021-05-16] MEDS ORDERED: LACTATED RINGERS 1,000 ML IV SCH (13:15)
[2021-05-16 13:36] VITALS: BP 123/75; PULSE 89; RESP 16; TEMP 97.6
--- NOTE | 2021-05-16 14:29 | P.PCN ---
Date of Procedure: 05/16/21 Description of Procedure: Preoperative diagnosis: Lumbar post laminectomy, and chronic pain syndrome Status post intrathecal pump for chronic pain management Postoperative diagnosis: Lumbar post laminectomy, and chronic pain syndrome Status post intrathecal pump for chronic pain management PROCEDURES: 1. Intrathecal pump analysis. 2. Intrathecal pump reprogramming. 3. Intrathecal pump refill ANESTHESIA: None. EBL: None. COMPLICATIONS: None. IV FLUIDS: None. PROCEDURE INDICATION: Patient is well known to pain clinic for management of intrathecal pump for chronic pain management. Patient denied any side effects with the medications. Rated his pain is 5-7 out of 10 in severity. On examination lower extremity muscle strength normal, no clonus. Patient came here for pump refill. PROCEDURE DESCRIPTION: The patient was seen and identified in the preoperative area. Risks, benefits, complications, and alternatives were discussed with the patient. The patient agreed to proceed with the procedure. Intrathecal pump was analyzed and displayed the following information: Type: SynchroMed Type II B Medication: Dilaudid 6 mg /ml infusion at 1.1230 mg/day Baclofen 50 g per mL infusion at 9.359 g per day Bupivacaine 3 MG per mL infusion at 0.5615 MG per day Pump Volume: 40 ml [place] Volume: 24.1 ml PTM: Disabled At this time, the area of the intrathecal pump was exposed, prepped with ChloraPrep x2 , and draped in the usual sterile fashion. After which, the [employer] template was used to identify the area of the skin overlying the refill port. After which, a 22-gauge Mitchell needle attached to an extension tubing, which was clamped, attached to a syringe and inserted through the skin into the refill port. At that point, 25 mL of clear fluid was aspirated. The tubing was reclamped. This was discarded. A new medication was then identified from pharmacy, . This was then attached to a filter, which was primed and subsequently injected into the pump in increments with intermittent aspiration to ensure placement into the intrathecal pump. At this point, the pump was reprogrammed. The dose was adjusted by 0 today's visit. Type: SynchroMed Type II B Medication: Dilaudid 6 mg /ml infusion at 1.1230 mg/day Baclofen 50 g per mL infusion at 9.359 g per day Bupivacaine 3 MG per mL infusion at 0.5615 MG per day Pump Volume: 40 ml [place] Volume: 40 ml Lo [place] Alarm Date: 12 weeks PTM: Disabled The patient tolerated the procedure well and was sent home from the discharge ar ea once meeting discharge criteria. Plan: The patient will follow up for further management and pump refills. Medications given : Percocet 10/325 by mouth every 8 hours as needed dispense 90 with 2 refills Naloxone 4 mg intranasal for respiratory depression as needed. Note : Intrathecal pain pump medication adjustment for future refill: . Can able to decrease the concentration by 50% for future refills as patient had more than 50% medication left in IT at the time of the refill. Per patient she doesn't notice any big difference with the baclofen in helping her spasm/pain.. Plan to decrease gradually her baclofen concentration as tolerated in future visits.
== END 2021-05-16 14:10 | disposition home or self-care (01) ==
LOC: ORPAIN 13:11
DX: G89.4 Chronic pain syndrome (principal)
CPT/HCPCS: 62370; 80307; G0482; J1170; J0475

== ENCOUNTER → 2021-08-08 | Day surgery (SDC) | payer MEDICARE ==
[2021-08-07 13:33] VITALS: BMI 28.3
--- NOTE | 2021-08-08 14:58 | P.PCN ---
Date of Procedure: 08/08/21 Procedure(s) Performed: PROCEDURE: Intrathecal pain pump analysis, programming and reprogramming, and intrathecal pain pump refill PREOPERATIVE DIAGNOSES: 1. near empty intrathecal pain pump time for refill. 2. opioid tolerance 3. failed back surgery syndrome, lumbar area POSTOPERATIVE DIAGNOSES: 1. near empty intrathecal pain pump time for refill. 2. opioid tolerance 3. failed back surgery syndrome, lumbar area ANESTHESIA: None. CONDITION: Stable. INDICATION: This is a 56-year-old patient with a long history of chronic pain secondary to PLPS and with a long history of opioid tolerance. Patient previously had an intrathecal pump placed, which is now time for pump refile , and patient presents for refill today. Patient denies any side effects of the intrathecal medication, including new weakness, new numbness, excessive drowsiness or sleepiness, nausea/vomiting, weight gain, or night sweats. Patient also denies suicidal ideation, and reports that the current pain medication is helping control the chronic pain and improve the patient's activities of daily living. DESCRIPTION: The intrathecal pain pump was analyzed and showed that the patient currently has reservoir volume of [24.3 ] mL. volume removed 24 mL The patient is receiving intrathecal Dilaudid PF at concentration [ 6 ] mcg/ ml, and bupivacaine PF at concentration [3 ] mg/ml, and baclofen [50] mcg/ml. Patient receiving daily dose of Dilaudid [ 1.02] mcg/day, bupivacaine [ 0.5 ] mg/day, and baclofen [ 8.5 ] mcg/day. The location of the pump (left buttock) was prepped with chlorhexidine x3, then 22-gauge needle from the [employer] kit was advanced through the pump port. Total of 24 ml was removed from the pump, and it was refilled with the new medication total volume of [40] ml of a solution containing intrathecal Dilaudid PF at concentration [6 ] mcg/ ml, and bupivacaine PF at concentration [ 3] mg/ml, and baclofen [ 50 ] mcg/ml. I increase the intrathecal pain pump infusion 5 % which means that patient start receiving daily dose of Dilaudid 1.17 mg per day, bupivacaine 0.58 mg per day and baclofen 9.8 g per day. Patient currently using Percocet 10/325 every 8 hours for extreme pain and she reported that the current medication is not helping enough and she reported that her pain intensity almost fluctuated between 6-7/10 for this reason I increase the intrathecal pain pump and also I will change the Percocet to [place] 10/325 every 8 hours new prescription for [place] 10/325 dispense 90 with 2 refills was given. And patient will follow up in the pain clinic in 3 months Physical Examinations : -Constitutiona : Cooperative , not in acute distress . -HEENT : nech : supple , no Lymphadenopathy , normal thyroid size . : eyes : no ptosis , no icterus, no photophobia . - neurologic : Cranial nerve II to XII intact , no focal neurological deffecit . -psychatric : alert , oriented X 3 , appropriate affect , intact judgment and insight . -Lymphatic : no Lymphadenopathy . - musculoskeltal : Lumber spine moter stegnth lower extremities ,thigh and legs 5/5 Right side , 5/5 Left side deep tendon reflexes : normal Knee Jerk , normal ankle Jerk lumber facet Loading Test =positive Right , positive Left Range of motion of the lumbar spine Flexion 30 degrees, extension 10 degrees strait leg raising test = positive at 30 degree Fabere test= positive Right , and positive LT . Sever tenderness over the Sacroiliac joint on the Left sides Gaenslen test= positive left . Seated flexion test= positive Left .
== END ==
LOC: ORPAIN 13:50
PROVIDERS: ATTEND Specialist
DX: Z45.1 Encounter for adjustment and management of infusion pump (principal)
CPT/HCPCS: 62370; J1170; J0475

== ENCOUNTER → 2021-10-24 | Day surgery (SDC) | payer MEDICARE ==
[2021-10-24 14:05] VITALS: BP 135/65; PULSE 90; RESP 16; TEMP 96.2
--- NOTE | 2021-10-24 14:45 | P.PCN ---
Date of Procedure: 10/24/21 Procedure(s) Performed: PROCEDURE: Intrathecal pain pump analysis, programming and reprogramming, and intrathecal pain pump refill PREOPERATIVE DIAGNOSES: 1. near empty intrathecal pain pump time for refill. 2. opioid tolerance 3. failed back surgery syndrome, lumbar area POSTOPERATIVE DIAGNOSES: 1. near empty intrathecal pain pump time for refill. 2. opioid tolerance 3. failed back surgery syndrome, lumbar area ANESTHESIA: None. CONDITION: Stable. INDICATION: This is a 56-year-old patient with a long history of chronic pain secondary to PLPS and with a long history of opioid tolerance. Patient previously had an intrathecal pump placed, which is now time for pump refile , and patient presents for refill today. Patient denies any side effects of the intrathecal medication, including new weakness, new numbness, excessive drowsiness or sleepiness, nausea/vomiting, weight gain, or night sweats. Patient also denies suicidal ideation, and reports that the current pain medication is helping control the chronic pain and improve the patient's activities of daily living. DESCRIPTION: The intrathecal pain pump was analyzed and showed that the patient currently has reservoir volume of [24.9 ] mL. volume removed 25 mL The patient is receiving intrathecal Dilaudid PF at concentration [ 6 ] mcg/ ml, and bupivacaine PF at concentration [3 ] mg/ml, and baclofen [50] mcg/ml. Patient receiving daily dose of Dilaudid [ 1.17] mcg/day, bupivacaine [ 0.58 ] mg/day, and baclofen [ 9.8 ] mcg/day. The location of the pump (left buttock) was prepped with chlorhexidine x3, then 22-gauge needle from the [employer] kit was advanced through the pump port. Total of 24 ml was removed from the pump, and it was refilled with the new medication total volume of [40] ml of a solution containing intrathecal Dilaudid PF at concentration [6 ] mcg/ ml, and bupivacaine PF at concentration [ 3] mg/ml, and baclofen [ 50 ] mcg/ml. Patient would continue to get the same dose of the medication Patient currently using norco 10/325 every 8 hours for extreme pain (was changed last visit from Percocet )and she reported that the norco is not helping enough, and she reported that her pain intensity almost fluctuated between 6- 7/10 , and she reported that she used to get more benefit from the Percocet for this reason I will discontinue [place], and we will start patient again on Percocet 10/325 every 6 hours when necessary dispensed 90 with 2 refills, and patient will follow up in the pain clinic in 3 months for pump refill Physical Examinations : -Constitutiona : Cooperative , not in acute distress . -HEENT : nech : supple , no Lymphadenopathy , normal thyroid size . : eyes : no ptosis , no icterus, no photophobia . - neurologic : Cranial nerve II to XII intact , no focal neurological deffecit . -psychatric : alert , oriented X 3 , appropriate affect , intact judgment and insight . -Lymphatic : no Lymphadenopathy . - musculoskeltal : Lumber spine moter stegnth lower extremities ,thigh and legs 5/5 Right side , 5/5 Left side deep tendon reflexes : normal Knee Jerk , normal ankle Jerk lumber facet Loading Test =positive Right , positive Left Range of motion of the lumbar spine Flexion 30 degrees, extension 10 degrees strait leg raising test = positive at 30 degree Fabere test= positive Right , and positive LT . Sever tenderness over the Sacroiliac joint on the Left sides Gaenslen test= positive left . Seated flexion test= positive Left .
== END ==
LOC: ORPAIN 13:55
PROVIDERS: ATTEND Specialist
DX: Z45.1 Encounter for adjustment and management of infusion pump (principal); G89.29 Other chronic pain; M96.1 Postlaminectomy syndrome, not elsewhere classified; Z79.891 Long term (current) use of opiate analgesic; Z91.041 Radiographic dye allergy status; Z79.899 Other long term (current) drug therapy; F17.290 Nicotine dependence, other tobacco product, uncomplicated; Z80.9 Family history of malignant neoplasm, unspecified; Z83.3 Family history of diabetes mellitus
CPT/HCPCS: 80307; 62370; G0482

== ENCOUNTER → 2022-01-16 | Day surgery (SDC) | payer MEDICARE ==
[2022-01-14 11:17] VITALS: BMI 27.4
[2022-01-16 14:05] VITALS: BP 130/85; PULSE 76; RESP 16; TEMP 97.6
--- NOTE | 2022-01-16 14:33 | P.PCN ---
Date of Procedure: 01/16/22 Procedure(s) Performed: PROCEDURE: Intrathecal pain pump analysis, programming and reprogramming, and intrathecal pain pump refill PREOPERATIVE DIAGNOSES: 1. near empty intrathecal pain pump time for refill. 2. opioid tolerance 3. failed back surgery syndrome, lumbar area POSTOPERATIVE DIAGNOSES: 1. near empty intrathecal pain pump time for refill. 2. opioid tolerance 3. failed back surgery syndrome, lumbar area ANESTHESIA: None. CONDITION: Stable. INDICATION: This is a 56-year-old patient with a long history of chronic pain secondary to PLPS and with a long history of opioid tolerance. Patient previously had an intrathecal pump placed, which is now time for pump refile , and patient presents for refill today. Patient denies any side effects of the intrathecal medication, including new weakness, new numbness, excessive drowsiness or sleepiness, nausea/vomiting, weight gain, or night sweats. Patient also denies suicidal ideation, and reports that the current pain medication is helping control the chronic pain and improve the patient's activities of daily living. DESCRIPTION: The intrathecal pain pump was analyzed and showed that the patient currently has reservoir volume of [23.5 ] mL. volume removed 23.5 mL The patient is receiving intrathecal Dilaudid PF at concentration [ 6 ] mcg/ ml, and bupivacaine PF at concentration [3 ] mg/ml, and baclofen [50] mcg/ml. Patient receiving daily dose of Dilaudid [ 1.17] mcg/day, bupivacaine [ 0.58 ] mg/day, and baclofen [ 9.8 ] mcg/day. The location of the pump (left buttock) was prepped with chlorhexidine x3, then 22-gauge needle from the [employer] kit was advanced through the pump port. Total of 24 ml was removed from the pump, and it was refilled with the new medication total volume of [40] ml of a solution containing intrathecal Dilaudid PF at concentration [6 ] mcg/ ml, and bupivacaine PF at concentration [ 3] mg/ml, and baclofen [ 50 ] mcg/ml. Patient would continue to get the same dose of the medications, she would continue to use Percocet 10/325 every 6 hours when necessary dispensed 90 with 2 refills, and patient will follow up in the pain clinic in 3 months for pump refil Physical Examinations : -Constitutiona : Cooperative , not in acute distress . -HEENT : nech : supple , no Lymphadenopathy , normal thyroid size . : eyes : no ptosis , no icterus, no photophobia . - neurologic : Cranial nerve II to XII intact , no focal neurological deffecit . -psychatric : alert , oriented X 3 , appropriate affect , intact judgment and insight . -Lymphatic : no Lymphadenopathy . - musculoskeltal : Lumber spine moter stegnth lower extremities ,thigh and legs 5/5 Right side , 5/5 Left side
== END ==
LOC: ORPAIN 13:52
PROVIDERS: ATTEND Specialist
DX: G89.29 Other chronic pain (principal)
CPT/HCPCS: 62370; J1170; J0475

== ENCOUNTER → 2022-04-08 | Day surgery (SDC) | payer MEDICARE ==
[2022-04-08 13:56] VITALS: BP 146/83; PULSE 105; RESP 18; TEMP 96.7
--- NOTE | 2022-04-08 14:52 | P.PCN ---
Date of Procedure: 04/08/22 Procedure(s) Performed: PROCEDURE: Intrathecal pain pump analysis, programming and reprogramming, and intrathecal pain pump refill PREOPERATIVE DIAGNOSES: 1. near empty intrathecal pain pump time for refill. 2. opioid tolerance 3. failed back surgery syndrome, lumbar area POSTOPERATIVE DIAGNOSES: 1. near empty intrathecal pain pump time for refill. 2. opioid tolerance 3. failed back surgery syndrome, lumbar area ANESTHESIA: None. CONDITION: Stable. INDICATION: This is a 56-year-old patient with a long history of chronic pain secondary to PLPS and with a long history of opioid tolerance. Patient previously had an intrathecal pump placed, which is now time for pump refile , and patient presents for refill today. Patient denies any side effects of the intrathecal medication, including new weakness, new numbness, excessive drowsiness or sleepiness, nausea/vomiting, weight gain, or night sweats. Patient also denies suicidal ideation, and reports that the current pain medication is helping control the chronic pain and improve the patient's activities of daily living. DESCRIPTION: The intrathecal pain pump was analyzed and showed that the patient currently has reservoir volume of [23.9 ] mL. volume removed 23.5 mL The patient is receiving intrathecal Dilaudid PF at concentration [ 6 ] mcg/ ml, and bupivacaine PF at concentration [3 ] mg/ml, and baclofen [50] mcg/ml. Patient receiving daily dose of Dilaudid [ 1.17] mcg/day, bupivacaine [ 0.58 ] mg/day, and baclofen [ 9.8 ] mcg/day. The location of the pump (left buttock) was prepped with chlorhexidine x3, then 22-gauge needle from the [employer] kit was advanced through the pump port. Total of 24 ml was removed from the pump, and it was refilled with the new medication total volume of [40] ml of a solution containing intrathecal Dilaudid PF at concentration [6 ] mcg/ ml, and bupivacaine PF at concentration [ 3] mg/ml, and baclofen [ 50 ] mcg/ml. Patient would continue to get the same dose of the medications, she would continue to use Percocet 10/325 every 6 hours when necessary dispensed 90 with 2 refills, and patient will follow up in the pain clinic in 3 months for pump refil Physical Examinations : -Constitutiona : Cooperative , not in acute distress . -HEENT : nech : supple , no Lymphadenopathy , normal thyroid size . : eyes : no ptosis , no icterus, no photophobia . - neurologic : Cranial nerve II to XII intact , no focal neurological deffecit . -psychatric : alert , oriented X 3 , appropriate affect , intact judgment and insight . -Lymphatic : no Lymphadenopathy . - musculoskeltal : Lumber spine moter stegnth lower extremities ,thigh and legs 5/5 Right side , 5/5 Left side
== END ==
LOC: ORPAIN 13:23
PROVIDERS: ATTEND Specialist
DX: Z45.1 Encounter for adjustment and management of infusion pump (principal); G89.29 Other chronic pain
CPT/HCPCS: 62370; J1170; J0475

== ENCOUNTER → 2022-07-01 | Day surgery (SDC) | payer MEDICARE ==
[2022-06-25 15:27] VITALS: BMI 27.4
[2022-07-01 13:36] VITALS: BP 119/62; PULSE 102; RESP 16; TEMP 98.3
--- NOTE | 2022-07-01 14:26 | P.PCN ---
Date of Procedure: 07/01/22 Procedure(s) Performed: PROCEDURE: Intrathecal pain pump analysis, programming and reprogramming, and intrathecal pain pump refill PREOPERATIVE DIAGNOSES: 1. near empty intrathecal pain pump time for refill. 2. opioid tolerance 3. failed back surgery syndrome, lumbar area POSTOPERATIVE DIAGNOSES: 1. near empty intrathecal pain pump time for refill. 2. opioid tolerance 3. failed back surgery syndrome, lumbar area ANESTHESIA: None. CONDITION: Stable. INDICATION: This is a 56-year-old patient with a long history of chronic pain secondary to PLPS and with a long history of opioid tolerance. Patient previously had an intrathecal pump placed, which is now time for pump refile , and patient presents for refill today. Patient denies any side effects of the intrathecal medication, including new weakness, new numbness, excessive drowsiness or sleepiness, nausea/vomiting, weight gain, or night sweats. Patient also denies suicidal ideation, and reports that the current pain medication is helping control the chronic pain and improve the patient's activities of daily living. She'll complaining of increased pain with activity and especially during the summertime she try to be active and this will increase her pain and currently she reported that activity exacerbates her pain and she is asking if we can increase the daily dose of intrathecal pain medication, she reported that her pain level fluctuates between 6/10 to 8/10 DESCRIPTION: The intrathecal pain pump was analyzed and showed that the patient currently has reservoir volume of [23.5 ] mL. volume removed 23.5 mL The patient is receiving intrathecal Dilaudid PF at concentration [ 6 ] mcg/ ml, and bupivacaine PF at concentration [3 ] mg/ml, and baclofen [50] mcg/ml. Patient receiving daily dose of Dilaudid [ 1.17] mcg/day, bupivacaine [ 0.58 ] mg/day, and baclofen [ 9.8 ] mcg/day. The location of the pump (left buttock) was prepped with chlorhexidine x3, then 22-gauge needle from the [employer] kit was advanced through the pump port. Total of 23.5 ml was removed from the pump, and it was refilled with the new medication total volume of [40] ml of a solution containing intrathecal Dilaudid PF at concentration [6 ] mcg/ ml, and bupivacaine PF at concentration [ 3] mg/ml, and baclofen [ 50 ] mcg/ml. and because patient complaining of increased pain and will increase the daily dose by 7% Sabino dose of Dilaudid will become 1.26 mg per day, baclofen the new dose will be 10.5 g per day, and bupivacaine daily dose 0.63 mg per day Patient would continue to get the same dose of the when necessary medications, she would continue to use Percocet 10/325 every 6 hours when necessary dispensed 90 with 2 refills, and patient will follow up in the pain clinic in 3 months for pump refil Physical Examinations : -Constitutiona : Cooperative , not in acute distress . -HEENT : nech : supple , no Lymphadenopathy , normal thyroid size . : eyes : no ptosis , no icterus, no photophobia . - neurologic : Cranial nerve II to XII intact , no focal neurological deffecit . -psychatric : alert , oriented X 3 , appropriate affect , intact judgment and insight . -Lymphatic : no Lymphadenopathy . - musculoskeltal : Lumber spine moter stegnth lower extremities ,thigh and legs 5/5 Right side , 5/5 Left side
== END ==
LOC: ORPAIN 13:25
PROVIDERS: ATTEND Specialist
DX: Z45.49 Encounter for adjustment and management of other implanted nervous system device (principal); M96.1 Postlaminectomy syndrome, not elsewhere classified; F11.20 Opioid dependence, uncomplicated
CPT/HCPCS: 62370; J1170; J0475

== ENCOUNTER → 2022-12-16 | Day surgery (SDC) | payer MEDICARE ==
[~2022-12-16] MED LIST changes: +LACTATED RINGERS 1,000 ML IV SCH
[2022-12-16 14:03] VITALS: BP 119/87; PULSE 89; RESP 16; TEMP 99
--- NOTE | 2022-12-16 15:23 | P.PCN ---
Date of Procedure: 12/16/22 Description of Procedure: Preoperative diagnosis: Lumbar post laminectomy, and chronic pain syndrome Status post intrathecal pump for chronic pain management Peripheral neuropathy Postoperative diagnosis: Lumbar post laminectomy, and chronic pain syndrome Status post intrathecal pump for chronic pain management Peripheral neuropathy PROCEDURES: 1. Intrathecal pump analysis. 2. Intrathecal pump reprogramming. 3. Intrathecal pump refill ANESTHESIA: None. EBL: None. COMPLICATIONS: None. IV FLUIDS: None. PROCEDURE INDICATION: Patient is well known to pain clinic for management of intrathecal pump for chronic pain management. Patient denied any side effects with the medications. Rated his pain is 6 out of 10 in severity. On examination lower extremity muscle strength normal, no clonus. Patient came here for pump refill. PROCEDURE DESCRIPTION: The patient was seen and identified in the preoperative area. Risks, benefits, complications, and alternatives were discussed with the patient. The patient agreed to proceed with the procedure. Intrathecal pump was analyzed and displayed the following information: Type: SynchroMed Type II B Medication: Dilaudid 6 MG per mL infusion at 1.2603 MG per day Baclofen 50 g per mL infusion at 10.503 g per day Bupivacaine 3 MG per mL infusion at 0.6302 MG per day Pump Volume: 40 ml [place] Volume: 23 ml PTM: Disabled At this time, the area of the intrathecal pump was exposed, prepped with ChloraPrep x2 , and draped in the usual sterile fashion. After which, the retsCloud template was used to identify the area of the skin overlying the refill port. After which, a 22-gauge Mitchell needle attached to an extension tubing, which was clamped, attached to a syringe and inserted through the skin into the refill port. At that point, 23 mL of clear fluid was aspirated. The tubing was reclamped. This was discarded. A new medication was then identified from pharmacy, . This was then attached to a filter, which was primed and subsequently injected into the pump in increments with intermittent aspiration to ensure placement into the intrathecal pump. At this point, the pump was reprogrammed. The dose was adjusted : none Type: SynchroMed Type II B Medication: Dilaudid 6 MG per mL infusion at 1.2603 MG per day Baclofen 50 g per mL infusion at 10.503 g per day Bupivacaine 3 MG per mL infusion at 0.6302 MG per day Pump Volume: 40 ml [place] Volume: 40 ml [place] Alarm Date: 12 weeks PTM: Disabled The patient tolerated the procedure well and was sent home from the discharge area once meeting discharge criteria. Plan: The patient will follow up for further management and pump refills. Medications given : Percocet 10/325 by mouth every 12 hours to every 8 hours as needed. Medications was not given today but Lyudmila Machadoduane is going to prescribe tomorrow as today having issues to prescribe this medicine electronically. Note : Intrathecal pain pump medication adjustment for future refill, discussed with the patient, and patient agreed to proceed for adjusting pain medications, and decreasing pain medications as tolerated in future visits. She is planning to cut down her baclofen as not noticed any major benefit with baclofen. She is also taking Flexeril as needed for muscle spasms. Patient has naloxone at home. Discussed with the patient not to drink alcohol while having on intrathecal pain medications, as it increases the risk of respiratory depression and . Patient clearly understood. Intrathecal pain pump medication in future visits: Plan to decrease her concentration by 50%, and gradual decrease her intrathecal pain medication as tolerated. Dilaudid 3 MG per mL infusion at 1.2603 MG per day Baclofen 22.5 g per mL infusion at 9.4527 g per day - ( 10% decrease in baclofen dose) Bupivacaine 1.5 MG per mL infusion at 0.6302 MG per day , Please discussed with Dr. Hussein before changing any intrathecal pain medication concentration, and dosage adjustment. Patient is willing to try 5% decrease of her Dilaudid intra thecal medication in future visits.
== END ==
LOC: ORPAIN 13:47
DX: Z51.81 Encounter for therapeutic drug level monitoring (principal); M96.1 Postlaminectomy syndrome, not elsewhere classified; G62.9 Polyneuropathy, unspecified; M19.90 Unspecified osteoarthritis, unspecified site; F41.9 Anxiety disorder, unspecified; G89.4 Chronic pain syndrome
CPT/HCPCS: 62370; J1170; J0475

== ENCOUNTER → 2023-03-03 | Day surgery (SDC) | payer MEDICARE ==
[2023-03-03 14:28] VITALS: BP 113/75; PULSE 96; RESP 16; TEMP 97.3
--- NOTE | 2023-03-03 15:36 | P.PCN ---
Description of Procedure: OPERATION: Intrathecal pain pump analysis, programming and reprogramming, and intrathecal pain pump refill. PREOPERATIVE DIAGNOSES: 1. near empty intrathecal pain pump time for refill. 2. 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 ANESTHESIA: None. CONDITION: Stable. Description of the procedure; Intrathecal pain pump analysed ,it showed patient currently had reservoir volume[ ] mL. The patient is receiving medication Dilaudid 4 mg/ ml, and bupivacaine concentration 2 mg/ml,Baclofen 30McG/Ml Patient receiving daily dose of Dilaudid 1.2603 mg/day and bupivacaine 0.6302 mg/day, Baclofen 9.452 mcg/day Pain is well controlled , patient using medication for breakthrough pain orally . The location of the pump ( Left Buttuck ) Prepped with chlorhexidine x3 , then using 22-gauge needle [employer] kit advanced through the pump port, Total of 23 ml removed from the pump, expected volume 23.8 ml , the pump refilled with the new medication total [id number] ml . The concentration of dilaudid [4 ] mg /ml , and the bupivacaine concentration [2 ] mg/ml,baclofen 30mgm/ml The patient will continue to see the daily dose dilaudid [1.2603 ] mg/day and bupivacaine [0.6302 ] mg/day baclofen 9.452mgm/day and patient will follow up with the pain clinic in 3 months. Prescription refill for Percoset will be handeled tomorrow by pain clinic
== END ==
LOC: ORPAIN 13:54
PROVIDERS: ATTEND Pain Medicine Interventional Pain Medicine
DX: Z51.81 Encounter for therapeutic drug level monitoring (principal); M51.36 Other intervertebral disc degeneration, lumbar region; M96.1 Postlaminectomy syndrome, not elsewhere classified

== ENCOUNTER → 2023-05-26 | Outpatient (CLI) | payer MEDICARE ==
--- NOTE | 2023-05-26 16:12 | XR ---
EXAMINATION TYPE: XR cervical spine comp DATE OF EXAM: 05/26/2023 4:05 PM CLINICAL INDICATION:Female, 58 years old with history of G56.92, G56.91, M542; COMPARISON: None TECHNIQUE: The cervical spine was imaged in frontal, lateral, odontoid and bilateral oblique. FINDINGS: The osseous structures show grade 2 anterolisthesis of C4 on C5 alignment without evidence of an acut e fracture. There are osteophytes noted throughout the cervical spine on the anterior and lateral asp ects of the vertebral bodies. The intervertebral disk spaces are narrowed at multiple levels. Pedicle s are intact. Soft tissues are within normal limits. The odontoid appears intact. IMPRESSION: 1. No fracture or dislocation. 2. Moderate to severe degenerative disc disease changes of the cervical spine with grade 2 anterolist hesis of C4 on C5.
== END | disposition home or self-care (01) ==
LOC: RADXRMAIN 13:57
PROVIDERS: ATTEND Family Medicine
DX: M43.12 Spondylolisthesis, cervical region (principal); M50.30 Other cervical disc degeneration, unspecified cervical region; G56.93 Unspecified mononeuropathy of bilateral upper limbs
CPT/HCPCS: 72050

== ENCOUNTER → 2023-05-26 | Day surgery (SDC) | payer MEDICARE ==
[2023-05-26 14:45] VITALS: BP 129/73; PULSE 100; RESP 18; TEMP 98.4
--- NOTE | 2023-05-26 15:53 | P.PCN ---
Description of Procedure: OPERATION: Intrathecal pain pump analysis, programming and reprogramming, and intrathecal pain pump refill. PREOPERATIVE DIAGNOSES: 1. near empty intrathecal pain pump time for refill. 2. 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 ANESTHESIA: None. CONDITION: Stable. Description of the procedure; Intrathecal pain pump analysed ,it showed patient currently had reservoir volume[ ] mL. The patient is receiving medication Dilaudid 4 mg/ ml, and bupivacaine concentration 2 mg/ml,Baclofen 30mcg/ml Patient receiving daily dose of Dilaudid 1.2603 mg/day and bupivacaine 0.6302 mg/day, Baclofen 9.452mcg/day. Pain is well controlled , patient using medication for breakthrough pain orally . The location of the pump ( Left Buttuck ) Prepped with chlorhexidine x3 , then using 22-gauge needle [employer] kit advanced through the pump port, Total of 13 ml removed from the pump, expected volume ml , the pump refilled with the new medication total volume 40 ml . The concentration of Dilaudid4 mg /ml , and the bupivacaine concentration [2 ] mg/ml,Baclofen 30mcg/ml The patient will continue to see the daily dose Dilaudid [1.2603 ] mg/day and bupivacaine [0.6302 ] mg/day, Baclofen 9.45 mcg/day and patient will follow up with the pain clinic in 3 months.
== END ==
LOC: ORPAIN 13:54
PROVIDERS: ATTEND Pain Medicine Interventional Pain Medicine
DX: Z51.81 Encounter for therapeutic drug level monitoring (principal); M96.1 Postlaminectomy syndrome, not elsewhere classified; Z79.899 Other long term (current) drug therapy
CPT/HCPCS: 62370; J1170; J0475

== ENCOUNTER → 2023-06-15 | Outpatient (CLI) | payer MEDICARE ==
--- NOTE | 2023-06-15 14:54 | CT ---
EXAMINATION TYPE: CT cervical spine w con DATE OF EXAM: 06/15/2023 COMPARISON: Plain film radiographs 05/26/2023 HISTORY: limited useage of bilateral hands x [address] DLP: 349.9 mGycm Contrast-enhanced CT of the cervical spine was performed with bone and soft tissue window settings hunt bmitted. Coronal and sagittal reconstruction is obtained. C2-3: Within normal limits C3-4: Severe degenerative disc space narrowing with ventral and dorsal spondylosis. Effacement of benjamin tral thecal sac. Moderate left foraminal encroachment. Right neural foramen is patent. No central charlie nosis or disc herniation. C4-5: Anterior subluxation of C4 on C5 measuring 5.2 mm. Severe degenerative change of the cervical a pophyseal joints. There is constriction of the thecal sac compatible with mild central stenosis. Ther e is severe bilateral neural foraminal encroachment. C5-6: Severe degenerative disc space narrowing. Ventral and dorsal spondylosis. Mild effacement of ve ntral thecal sac. Mild central stenosis. Moderate bilateral neural foraminal encroachment. C6-7: Severe degenerative disc space narrowing. Ventral and dorsal spondylosis. Mild effacement of ve ntral thecal sac. Mild central stenosis. Moderate bilateral neural foraminal encroachment. C7-T1: Within normal limits IMPRESSION: 1. Multilevel degenerative disc disease with associated spondylosis and central stenosis and foramina l encroachment as outlined above. 2. Anterior subluxation C4 on C5 and 5.2 mm felt to be related to severe degenerative changes of the cervical apophyseal joints.
== END | disposition home or self-care (01) ==
LOC: RADCTMAIN 06-10 12:56
PROVIDERS: ATTEND Family Medicine
DX: Z53.9 Procedure and treatment not carried out, unspecified reason (principal)
CPT/HCPCS: 72126; Q9967

== ENCOUNTER → 2023-07-27 | Outpatient (CLI) | payer MEDICARE ==
--- NOTE | 2023-07-28 10:27 | MR ---
EXAMINATION TYPE: MR cervical spine wo con DATE OF EXAM: 07/27/2023 COMPARISON: Radiograph 08/02/2023 HISTORY: 58-year-old female Neck pain, Weakness/burning in hema hands TECHNIQUE: Multiplanar, multisequence images of the cervical spine were acquired without contrast. FINDINGS: No craniocervical junction abnormality, predental space widening, or prevertebral soft tissue swellin g. Reversal of normal cervical lordosis with grade 2 anterolisthesis C4-C5 and grade 1 retrolisthesis of both C5-C6 and C6/C7. 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 Superimposed moderate to severe multilevel disc desiccation change with some scattered Modic type I a nd type III endplate change throughout especially C3-C7 levels. Advanced hypertrophic facet and uncovertebral joint arthropathy is also present throughout. * Changes result in a focal moderate to severe spinal canal stenosis at C4-C5 with the canal dimensi on narrowed to 5 mm AP causing flattening of both the dorsal and ventral cord. * Moderate spinal canal stenosis at both C3-C4 and C5-C6. The AP canal dimension is narrowed to 7 mm and causes abutment of the dorsal and ventral cord. * Mild overall narrowing of the spinal canal at C6/C7 due to disc osteophyte complex. Cord edema spanning from C3-C4 down to the C5 level. At C2-C3, no significant neural foraminal stenosis. At C3-C4, moderate left and mild right neural foraminal stenosis. At C4-C5, severe left and moderate right foraminal stenosis. At C5-C6, moderate to severe left and moderate right neuroforaminal stenosis. At C6-C7, moderate to severe right and moderate left neural foraminal stenosis. At C7-T1, no significant neural foraminal stenosis. IMPRESSION: 1. Moderate to severe multilevel disc/endplate degenerative change as well as hypertrophic facet and uncovertebral joint arthropathy. This results in grade 2 anterolisthesis at C4-C5 and grade 1 retroli sthesis at both C5-C6 and C6-C7. 2. MODERATE TO SEVERE SPINAL CANAL STENOSIS AT C4-C5 WITH CORD EDEMA HERE SUGGESTING CORD COMPRESSION . CORRELATE FOR MYELOPATHIC SYMPTOMS. 3. Moderate spinal canal stenosis at both C3-C4 and C5-C6. Mild at C6-C7. 4. Variable neuroforaminal stenoses as outlined above. Critical findings sent to Dr. Dao by [employer] text at 10:24 AM.
== END | disposition home or self-care (01) ==
LOC: RADMRIMAIN 13:00
PROVIDERS: ATTEND Orthopaedic Surgery
DX: M47.22 Other spondylosis with radiculopathy, cervical region (principal); M50.10 Cervical disc disorder with radiculopathy, unspecified cervical region; M43.12 Spondylolisthesis, cervical region; M48.02 Spinal stenosis, cervical region; M47.26 Other spondylosis with radiculopathy, lumbar region; M99.71 Connective tissue and disc stenosis of intervertebral foramina of cervical region; R53.1 Weakness
CPT/HCPCS: 72141

== ENCOUNTER 2023-07-29 13:54 | Inpatient (IN) | payer MEDICARE ==
[2023-07-29] MEDS ORDERED: ACETAMINOPHEN TAB 325 MG TAB PO PRN (14:40)
[2023-07-29] MEDS ORDERED: NALOXONE 0.4 MG/ML 1 ML VIAL IV PRN (14:40)
[2023-07-29] MEDS ORDERED: HYDROcodone/APAP 5-325MG 1 EACH TAB PO PRN (14:40)
--- NOTE | 2023-07-29 14:40 | ED ---
General Adult HPI - General Stated complaint: Raúl hand numbness Time Seen by Provider: 07/29/23 14:01 Source: patient, RN notes reviewed Mode of arrival: wheelchair Limitations: no limitations - History of Present Illness Initial comments: 58 female presents emergency department chief complaint of neck pain. Patient was sent over by Dr. Dao for admission and surgical intervention. Patient had outpatient cervical MRI showing cervical spine edema, degenerative changes. Patient was sent over here for possible surgery. Patient states that this has been going on for several months that worsened. She has increasing hand pain, numbness and burning sensation. - Related Data Home Medications Medication Instructions Recorded Confirmed Multivitamins, Thera [Multivitamin] 1 tab PO DAILY 08/17/13 05/26/23 Pain Pump 50 mcg INTRATHECA CONTINUOUS 01/21/17 05/26/23 ALPRAZolam [Xanax] 0.5 mg PO TID PRN 04/26/19 05/26/23 DULoxetine HCL [Cymbalta] 90 mg PO DAILY 07/12/19 05/26/23 Pregabalin 300 mg PO HS 12/10/22 05/26/23 Celecoxib [CeleBREX] 100 mg PO BID 12/16/22 05/26/23 Previous Rx's Medication Instructions Recorded Naloxone HCl 0.4 mg NASAL ONCE PRN #1 each 02/20/21 oxyCODONE HCL/ACETAMINOPHEN 1 tab PO TID PRN 30 Days #90 tab 06/01/23 [Percocet 10-325 mg] oxyCODONE HCL/ACETAMINOPHEN 1 tab PO TID PRN 30 Days #90 tab 06/01/23 [Percocet 10-325 mg] Allergies Allergy/AdvReac Type Severity Reaction Status Date / Time Iodinated Contrast Media Allergy Severe MIGRAINE Verified 05/26/23 14:12 [Iodinated Contrast Media - Oral and] Review of Systems ROS Statement: Those systems with pertinent positive or pertinent negative responses have been documented in the HPI. ROS Other: All systems not noted in ROS Statement are negative. Past Medical History Past Medical History: Musculoskeletal Disorder Additional Past Medical History / Comment(s): Hx migraines - post procedure. DDD, chronic back pain, numbness and tingling down legs. Left leg edema in knee area and down leg, head tremors. neuropathy. hands feel cold but feel like on fire very painful. History of Any Multi-Drug Resistant Organisms: None Reported Past Surgical History: Appendectomy, Back Surgery, Tubal Ligation Additional Past Surgical History / Comment(s): Exploratory laparoscopy, right oophorectomy and right salpingectomy, pain pump implant X3, pain procedures, spinal fusion with ann and screws. Past Anesthesia/Blood Transfusion Reactions: Motion Sickness, Postoperative Nausea & Vomiting (PONV) Past Psychological History: Anxiety, Depression Smoking Status: Current every day smoker Past Alcohol Use History: None Reported Past Drug Use History: None Reported - Past Family History Daughter(s) Family Medical History: Blood Disorder Additional Family Medical History / Comment(s): Factor V. Mother Family Medical History: Cancer, Deep Vein Thrombosis (DVT) Father Family Medical History: Cancer General Exam Limitations: no limitations General appearance: alert, in no apparent distress Head exam: Present: atraumatic, normocephalic, normal inspection Neck exam: Present: normal inspection, tenderness, full ROM. Absent: meningismus, lymphadenopathy Respiratory exam: Present: normal lung sounds bilaterally. Absent: respiratory distress, wheezes, rales, rhonchi, stridor Cardiovascular Exam: Present: regular rate, normal rhythm, normal heart sounds. Absent: systolic murmur, diastolic murmur, rubs, gallop, clicks Course Vital Signs 07/29/23 14:21 Temperature 989.5 F H Pulse Rate 98 Respiratory 18 Rate Blood Pressure 114/72 O2 Sat by Pulse 95 Oximetry EKG Findings - EKG Comments: EKG Findings:: EKG performed at 14: 39 sinus [place] 90 [place] [address] QRS 101 QT/QTc 349/396 - EKG Results: EKG: interpreted by CLAIRE Medical Decision Making - Medical Decision Making Was pt. sent in by a medical professional or institution (, PA, BLIND SLAT STAPLING MACHINE OPERATOR, urgent care, hospital, or longterm...) When possible be specific @ -Orthopedic surgeon Did you speak to anyone other than the patient for history (EMS, parent, family, police, friend...)? What history was obtained from this source @ -No Did you review nursing and triage notes (agree or disagree)? Why? @ -I reviewed and agree with nursing and triage notes Were old charts reviewed (outside hosp., previous admission, EMS record, old EKG, old radiological studies, urgent care reports/EKG's, longterm records)? Report findings @ -[Reviewed outpatient MRI of cervical spine Differential Diagnosis (chest pain, altered mental status, abdominal pain women, abdominal pain men, vaginal bleeding, weakness, fever, dyspnea, syncope, headache, dizziness, GI bleed, back pain, seizure, CVA, palpatations, mental health, musculoskeletal)? @ -Cervical myleopathy, radiculopathy EKG interpreted by me (3pts min.). @ -As above X-rays interpreted by me (1pt min.). @ -None done CT interpreted by me (1pt min.). @ -None done U/S interpreted by me (1pt. min.). @ -None done What testing was considered but not performed or refused? (CT, X-rays, U/S, labs)? Why? @ -None What meds were considered but not given or refused? Why? @ -None Did you discuss the management of the patient with other professionals (professionals i.e. , PA, BLIND SLAT STAPLING MACHINE OPERATOR, lab, RT, psych nurse, social services director, construction equipment technician, teacher, data officer, case specialist)? Give summary @ -No Was smoking cessation discussed for >3mins.? @ -No Was critical care preformed (if so, how long)? @ -No Were there social determinants of health that impacted care today? How? (Homelessness, low income, unemployed, alcoholism, drug addiction, transportation, low edu. Level, literacy, decrease access to med. care, skilled nursing, rehab)? @ -No Was there de-escalation of care discussed even if they declined (Discuss DNR or withdrawal of care, Hospice)? DNR status @ -No What co-morbidities impacted this encounter? (DM, HTN, Smoking, COPD, CAD, Cancer, CVA, ARF, Chemo, Hep., AIDS, mental health diagnosis, sleep apnea, morbid obesity)? @ -None Was patient admitted / discharged? Hospital course, mention meds given and route, prescriptions, significant lab abnormalities, going to OR and other pertinent info. @ -Admitted to orthopedic services for possible surgery and treatment of cervical normality found on MRI Undiagnosed new problem with uncertain prognosis? @ -No Drug Therapy requiring intensive monitoring for toxicity (Heparin, Nitro, Insulin, Cardizem)? @ -No Were any procedures done? @ -No Diagnosis/symptom? @ -Cervical radiculopathy, cervical myelopathy Acute, or Chronic, or Acute on Chronic? @Acute Uncomplicated (without systemic symptoms) or Complicated (systemic symptoms)? @ -Comp dated Side effects of treatment? @ -No Exacerbation, Progression, or Severe Exacerbation? @ -No Poses a threat to life or bodily function? How? (Chest pain, [place], SC, pneumonia, PE, COPD, DKA, ARF, appy, cholecystitis, CVA, Diverticulitis, Homicidal, Suicidal, threat to staff... and all critical care pts) @ -Yes possible surgical risk Disposition Clinical Impression: Cervical myelopathy with cervical radiculopathy Disposition: ADMITTED IP TO THIS HOSP Condition: Fair Referrals: Mario Kunz Jr, [Primary Care Provider] - 1-2 days Time of Disposition: 14:40
[2023-07-29] MEDS: methylPREDNISolone SOD SUCCI 125 MG/2 ML VIAL IV STA (15:09)
--- NOTE | 2023-07-29 15:20 | XR ---
EXAMINATION TYPE: XR chest 1V DATE OF EXAM: 07/29/2023 COMPARISON: 10/07/2015 HISTORY: 58-year-old female preoperative evaluation TECHNIQUE: Single frontal view of the chest is obtained. FINDINGS: Heart normal size. Pulmonary vasculature within normal limits. Slight rightward patient ro tation alters normal cardiac and mediastinal contours. Hyperinflation with relative upper lung lucenc ies. Mild patchy bibasilar density, coronal relates to overlying soft tissue. IMPRESSION: Osteopenia. Rotated exam. Some mild bibasilar densities likely relate to overlying soft tissue in the absence of any acute respiratory symptoms. Clinically correlate.
[2023-07-29 15:22] LABS: INR 0.8 (<1.2); Partial Thromboplastin Time 28.7 sec (22.0-30.0); Prothrombin Time 9.6 sec (10.0-12.5)
[2023-07-29 15:23] LABS: Basophils # (A) 0.1 k/uL (0-0.2); Basophils % (A) 1 %; Eosinophils # (A) 0.3 k/uL (0-0.7); Eosinophils % (A) 2 %; HCT 40.9 % (34.0-46.0); HGB 13.2 gm/dL (11.4-16.0); Lymphocytes # (A) 4.9 k/uL (1.0-4.8); Lymphocytes % (A) 38 %; MCH 31.1 pg (25.0-35.0); MCHC 32.3 g/dL (31.0-37.0); MCV 96.3 fL (80.0-100.0); Mean Platelet Volume 7.7; Monocytes # (A) 0.8 k/uL (0-1.0); Monocytes % (A) 6 %; Neutrophils # (A) 6.8 k/uL (1.3-7.7); Neutrophils % (A) 52 %; Platelet Count 265 k/uL (150-450); RBC 4.25 m/uL (3.80-5.40); RDW 12.2 % (11.5-15.5)
[2023-07-29 15:45] LABS: ALT 14 U/L (4-34); AST 22 U/L (14-36); African American GFR (CKD) >90 (>60 ml/min/1.73 sqM); Albumin 3.8 g/dL (3.5-5.0); Alkaline Phosphatase 120 U/L (38-126); Anion Gap 7 mmol/L; Blood Urea Nitrogen 19 mg/dL (7-17); Calcium 10.2 mg/dL (8.4-10.2); Carbon Dioxide 25 mmol/L (22-30); Chloride 112 mmol/L (98-107); Glucose 118 mg/dL (74-99); Non-African American GFR(CKD) >90 (>60 ml/min/1.73 sqM); Potassium 4.6 mmol/L (3.5-5.1); Sodium 144 mmol/L (137-145); Total Bilirubin 0.3 mg/dL (0.2-1.3); Total Protein 6.6 g/dL (6.3-8.2)
[2023-07-29] MEDS: HYDROmorphone 0.5 MG/0.5 ML SYRINGE IVP PRN (17:19)
[2023-07-29] MEDS: PREGABALIN 100 MG CAP PO SCH (20:00)
--- NOTE | 2023-07-29 20:32 | P.HPOR ---
History of Present Illness H&P Date: 07/29/23 Chief Complaint: Cervical myelopathy .D:Date: 07/29/23 : 10:34am .T:Title: [facility] HISTORY AND PHYSICAL Age: 58 year Height: 5' Weight: 150 lbs BP:/ BMI: 29.29 kg/m2 Occupation: Disables VAS: 8 CC: My hands don't work and I had a bout of bowel leaked today HISTORY: Ms. Solis presents to the office today,07/29/23, for evaluation of her neck. She previously saw Cristina dodd BEATER WORKER HELPER and was promptly worked up due to her UE and LE symptoms as well as her neck issues. She states that since May she has not been able to use her hands well and she is losing more function in them. She states her hands feel like "sandpaper" and that she continues to have issues with fine motor skills that are progressing rapidly. Her daughter and her are in the room with her and state the same. She states this AM she had a bout of bowel incontinence which is new for her. She states she can feel her genitals and recatl area still but she was unable to get the bathroom in time this AM. She denies any trauma. She denies a Dx of RA at this time. Patient denies any f/c/sob/cp, perineal numbness or tingling, bowel or bladder incontinence/retention. Patient is ambulatory The patients' past social, medical, family, surgical history, as well as review of systems, have been reviewed. Please refer to the Neurosurgery History and Physical form that has been scanned into our electronic medical record system. 16 points review of systems completed and as stated in HPI, all other systems reviewed are negative. PAST TREATMENTS: PAST IMAGING: -CT cervical , XR cervical, MRI cervical TRAUMA RELATED: -NO WORK RELATED: -NO PT IN LAST 6 MONTHS: -YES PHYSICIAN DIRECTED HOME EXERCISE PROGRAM: -YES ACTIVITY MODIFICAITON: -YES, cannot do things due to her debility in her hands and arms MEDICATIONS: -YES, tylenol, motrin, prednisone ALTERNATIVE INTERVENTIONS (CHIROPRACTIC, ACCUPUNCTURE, MASSAGE, RICE): -NO BRACING: -NO INJECTIONS (HECTOR, TF, RFA): -NO -OTHER: NONE warrented MEDICAL HISTORY: Past Medical History: P1 PAST MEDICAL HISTORY: P1 P1 denergative disc disease Surgical / Procedural History: back surgery 2002 P1 Past Spine Surgical History: Lumbar decompression fusion previously at outside hospital Social History: Reviewed, see appropriate section of the chart for details. P3 Family History: Reviewed, see appropriate section of the chart for details. P2 P1 Current Medications: Rx: ALPRAZolam 0.5 mg tablet Ref: 0 Instructions: take 1 tablet (0.5 mg) by oral route 3 times per day Rx: celecoxib 100 mg capsule Ref: 0 Instructions: take 1 capsule (100 mg) by oral route once daily Rx: DULoxetine Ref: 0 Rx: oxyCODONE-acetaminophen 10 mg-325 mg tablet Ref: 0 Instructions: take 1 tablet by oral route every 6 hours as needed Rx: pain pump , Ref: 0 Rx: pregabalin 300 mg capsule Ref: 0 Instructions: take 1 capsule (300 mg) by oral route 2 times per day P1 PHYSICAL EXAM: General: AOX3, NAD, Well hydrate, Well nourished HEENT: No lumps or masses Extremities: No color changes, no pooling INTEGUMENT: Appearance: Normal color and turgor Surgical Incisions: Lumbar well healed. No cervical Hairy Patches: ABSENT Dorsal Skin Dimples: Normal [employer] spots: ABSENT PALPATION: TTP Midline: YES Paracervical: YES Parathoracic: NO Paralumbar: YES SIJ TESTING: NONE POSTURAL BALANCE: Coronal: BALANCED Sagittal: BALANCED Shoulder height: LEVEL Pelvic Girdle: LEVEL ROM AND APPEARANCE: Neck: RESTRICTED Lumbar: RESTRICTED Shoulders: Symmetrical Hips: Symmetrical Knees: Symmetrical Hands: Symmetrical Feet: Symmetrical VASCULAR STATUS: RUE- 2 LUE-2 RLE-2 LLE-2 Edema: NONE NEUROLOGICAL EXAMINATION: Mental Status: Awake, alert, oriented fully with normal attention, concentration and memory. Fluent appropriate speech. CRANIAL NERVES: I: Olfactory not tested. II: Visual acuity normal, no visual field deficit noted with confrontation. III,IV: Normal pupillary reflexes & intact extraocular movements without nystagmus. V,: Intact symmetrical facial sensation. VII: Intact symmetrical facial motor movementVIII: Hearing intact. IX,X: Intact gag, swallow, & normal voice. XI: Sternocleidomastoid, trapezius function intact. XII: Tongue midline with normal movements. TENSIONING: L'HERMITTE'S SIGN POS SPURLUNG'S SIGN POS CUBITAL COMPRESSION NEG TINELS AT WRIST NEG SLR/CROSSED SLR POS MOTOR EXAM (0-5/5, NT) Muscle appearance: Symmetrical, without signs of atrophy or dystrophy UPPER EXTREMITY RIGHT LEFT Shoulder Abduction 3 3 Biceps 3 3 Triceps 3 3 Wrist Extension 3 3 Hand Intrnsics 3 3 Wine And Spirits Clerk 3 3 LOWER EXTREMITY RIGHT LEFT Hip Flexion 4 4 Knee Extension 4 4 Knee Flexion 4 4 Dorsiflexion 4 4 Plantarflexion 4 4 EHL 4 4 FHL 4 4 REFLEXES (0-4/2, NT): RIGHT LEFT Bicep 3+ 3+ Brachioradialis 3+ 3+ Tricep 3+ 3+ Patellar 3+ 3+ Achilles 3+ 3+ PATHOLOGICAL REFLEXES: RIGHT LEFT COBURN'S PRESENT BRISK PRESENT BRISK CLONUS PRESENT 10 BEATS PRESENT SUSTAINED BABINSKI ABSENT ABSENT Rectal Tone: INTACT SENSATION (0-4, NT): RUE-1LUE-1 RLE-2 LLE-2 Dermatomal deficit: GLOBAL UE B/L GAIT AND FUNCTIONAL EVALUATION: -Ambulatory aids- INDEPENDENT, UNSTEADY NEEDS ASSIST -Rombergs test- POS -Hand and finger dexterity intact bilaterally? NO -Dysdiadochokinesia examination negative bilaterally? NO -Toe heel walk / heel-toe walk intact while maintaining satisfactory balance? NOT ABLE UNSTABLE -Squatting/straightening w/o assistance to a min of 60 degree knee flexion? NO -Single leg stance: NOT ABLE -Trendelenburg sign NT IMAGING STUDIES FINDINGS XRAY Date: 07/23/23 Location: [facility] Region: CERVICAL Views: AP/LAT/FLEX/EXT/OB IMAGES REVIEWED. SEVERE SPONDYLOSIS OF THE CERVICAL SPINE WITH MULTILEVEL COLLAPSE. C4-5 GRADE II UNSTABLE SPONDYLOLISTHESIS. SEVERE STENOSIS. C0-1 AND C1-2 STABLE AT THIS TIME. NO FRACTURE. NO LESIONS. CT Date: 06/15/23 Location: [facility] Region: CERVICAL Contrast: N SEVERE CERVICAL SPONDYLOSIS WITH STENOSIS C3-7 WITH COLLAPSE AT ALL LEVELS THAT IS SEVERE. GRADE II PARTIALLY REDUCED C4-5 SPONDYLOLISTHESIS, UNSTABLE. SEVERE FACET ARTHROPATHY. NO FRACTURES. NO LESIONS. C0-1 AND C1-2 STABLE. RA LOOK TO SUBAXIAL REGION. MRI Date: 07/28/23 Location: [facility] Region: CERVICAL Contrast: N SEVERE SPONDYLOSIS C3-7 WITH SEVERE DISC COLLAPSE, HEIGHT LOSS AND INSTABILIYT. C4-5 GRADE II SPONDYLOLISTHESIS, UNSTABLE WITH SEVERE STENOSIS C3-7. THERE IS MYLOMALACIA CHANGES FROM C3-6 WITH CORD COMPRESSION THAT IS SEVERE. SAC IS 6MM FROM C3-5 AND 4MM AT C4-5 RESPECTIVELY DUE TO SLIP AND COMPRESSIVE PATHOLOGIES. NO FRACTURES NOTED. NO LESIONS. FACET ARTHROPATHY. C0-1 AND C1-2 ARE STABLE AT THIS TIME. IMPRESSION: It was my pleasure to have seen and examined Mervat. I reviewed the patient's clinical syndrome, physical findings, and imaging studies during the appointment today. It is my impression that the patient has a diagnosis of. 1.SEVERE CERVICAL SPONDYLOTIC MYELOPATHY 2.UE AND LE WEAKNESS, SEVERE 3.C3-7 SPONDYLOSIS WITH STENOSIS 4. C4-5 GRADE II UNSTABLE SPONDYLOLISTHESIS PLAN: PT HAS URGENT/EMERGENT SURGICAL PROBLEM. AT THIS POINT SHE HAS HAD RAPID PROGRESSION OF HER NEUROLOGICAL DETERIORATION AND MYELOPATHY TO THE POINT OF DAMAGE AND NOW BOWEL INCONTINENCE. SHE NEEDS URGENT SURGICAL INTERVENTION. WE ADVISED HER THAT SHE NEEDS TO GO TO THE ED AND BE ADMITTED FOR SURGICAL WORK UP AND INTERVENTION. SHE UNDERSTANDS. WE DISCUSSED AT LENGTH THE RISKS AND BENEFITS OF SURGERY INCLUDING BUT NOT LIMITED TO RISK OF BLEEDING, INFECTION, DAMAGE TO TISSUES, NERVE DAMAGE, RISK OF RE-OPERATION, RISK OF NEROLOGICAL DEFICIT DESPITE SURGERY, RISK OF ANESTHESIA UP TO AND INCLUDING . THESE RISKS WERE ACCEPTABLE TO THE PATIENT SHE IS GETTING WORSE AND CANNOT FUNCTION NORMALLY. SURGICAL RECOMMENDATION: URGENT -STAGE I: C3-7 ACDF WITH POSSIBLE C4 AND C5 CORPECTOMY STAGE II: C2-T2 DECOMPRESSION AND FUSION DISCUSSION: -WE DISCUSSED OPTIONS FOR TREATMENT AND RECOMMEND URGENT SURGICAL INTERVENTION WELL ED AND ADMISSION TO THE HOSPITAL FOR EVALUATION AND SURGICAL INTERVENTION. FOLLOW UP: ED FOR EVALUATION AND ADMISSION FOR URGENT SURGERY PLAN AT NEXT VISIT: POST OP VISIT AND XRAYS PATIENT EDUCATION: Medications Reviewed: YES In our visit today Ms. Solis and I have had a chance to go over my understanding of the patient's current condition, the natural course history without intervention and various interventional options. Questions were invited and answered, and the patient wishes to proceed as outlined above. I will be sure to keep you updated after Ms. Solis returns here for further follow-up. Thank you again for your referral. Please do not hesitate to contact me if you have any further questions. Signed and authenticated by: Kit Pulliam [facility] [address] [place] [address] This message is confidential, intended only for the named recipient(s) and may contain information that is privileged or exempt from disclosure under applicable law. If you are not the intended recipient(s), you are notified that the dissemination, distribution or copying of this information is strictly prohibited. If you received this message in error, please notify the sender then delete this message. # SIGNED BY Kit Dao (GOO)07/29/2023 10:51AM Past Medical History Past Medical History: Musculoskeletal Disorder Additional Past Medical History / Comment(s): Hx migraines - post procedure. DDD, chronic back pain, numbness and tingling down legs. Left leg edema in knee area and down leg, head tremors. neuropathy. hands feel cold but feel like on fire very painful. History of Any Multi-Drug Resistant Organisms: None Reported Past Surgical History: Appendectomy, Back Surgery, Tubal Ligation Additional Past Surgical History / Comment(s): Exploratory laparoscopy, right oophorectomy and right salpingectomy, pain pump implant X3, pain procedures, spinal fusion with ann and screws. Past Anesthesia/Blood Transfusion Reactions: Motion Sickness, Postoperative Nausea & Vomiting (PONV) Past Psychological History: Anxiety, Depression Smoking Status: Current every day smoker Past Alcohol Use History: None Reported Additional Past Alcohol Use History / Comment(s): WAS Vaping daily for 1 1/2 years, BACK TO SMOKING 1PPD, smoked up to 3PPD prior to that for about 35 years. as of 03/2022 1 ppk day Past Drug Use History: None Reported - Past Family History Daughter(s) Family Medical History: Blood Disorder Additional Family Medical History / Comment(s): Factor V. Mother Family Medical History: Cancer, Deep Vein Thrombosis (DVT) Father Family Medical History: Cancer Medications and Allergies Home Medications Medication Instructions Recorded Confirmed Type ALPRAZolam [Xanax] 0.5 mg PO Q8H PRN 04/26/19 07/29/23 History DULoxetine HCL [Cymbalta] 90 mg PO DAILY 07/12/19 07/29/23 History Celecoxib [CeleBREX] 100 mg PO PC-LUNCH 12/16/22 07/29/23 History Naloxone HCl 0.4 mg NASAL ONCE PRN 07/29/23 07/29/23 History Patient Own Pump 0 bag 07/29/23 History Pregabalin [Lyrica] 300 mg PO BID 07/29/23 07/29/23 History oxyCODONE HCL/ACETAMINOPHEN 1 tab PO Q6H PRN MDD 3 tabs 07/29/23 07/29/23 History [Percocet 10-325 mg] Allergies Allergy/AdvReac Type Severity Reaction Status Date / Time Iodinated Contrast Media AdvReac Severe MIGRAINE Verified 07/29/23 15:16 [Iodinated Contrast Media - Oral and] Physical Examination Osteopathic Statement: *. No significant issues noted on an osteopathic structural exam other than those noted in the History and Physical/Consult. Results - Labs Labs: Abnormal Lab Results - Last 24 Hours (Table) 07/29/23 07/29/23 07/29/23 Range/Units 15:03 15:03 15:03 WBC 13.0 H (3.8-10.6) k/uL Lymphocytes # 4.9 H (1.0-4.8) k/uL PT 9.6 L (10.0-12.5) sec Chloride 112 H (98-107) mmol/L BUN 19 H (7-17) mg/dL Glucose 118 H (74-99) mg/dL H & H 07/29/23 Range/Units 15:03 Hgb 13.2 (11.4-16.0) gm/dL Hct 40.9 (34.0-46.0) % Coagulation 07/29/23 Range/Units 15:03 INR 0.8 (<1.2) Result Diagrams: 07/29/23 15:03 07/29/23 15:03
[2023-07-30] MEDS: oxyCODONE-APAP 10-325MG 1 EACH TAB PO PRN (04:48)
[2023-07-30] MEDS ORDERED: TRANEXAMIC ACID 1,000 MG in SODIUM CHLORIDE 0.9% 100 ML IVPB PRN (06:00)
--- NOTE | 2023-07-30 08:02 | P.PN ---
Progress Note - Text Progress Note Date: 07/30/23 Patient has remained NPO since midnight. Discussed with patient the approx time of surgery to be later this afternoon into possible evening. Patient verbalizes understanding. Patient may utilize moisturizing mouth swabs to maintain oral integrity and hydration. Patient states she is very anxious about surgery, although she reports she understands the necessity and benefits. All questions have been answered at this time.
[2023-07-30] MEDS: ALPRAZolam 0.5 MG TAB PO PRN (08:05)
[2023-07-30] MEDS: NICOTINE 21MG/24HR PATCH TRANSDERM SCH (10:29)
--- NOTE | 2023-07-30 11:07 | P.PN ---
Progress Note - Text Progress Note Date: 07/30/23 Pt is severely myelopathig and paraparetic moving towards quad. She needs urgent surgical intervention and will go to surgery today for anterior portion of her two stage cervical decompression and fusion. Anteriorly she will get C3- 6 possibly C7 ACDF with likely C4 corpectomy.
[2023-07-30] MEDS: LACTATED RINGERS 1,000 ML IV ONE ×11 (13:31→18:56)
[2023-07-30] MEDS: MIDAZOLAM 2 MG/2 ML VIAL IVP ONE (13:45)
--- NOTE | 2023-07-30 14:16 | P.ANPRN ---
Procedure Note - Anesthesia - Invasive Line Right Arterial Line Time Out Performed: Yes Date of Procedure: 07/30/23 Time of Procedure: 14:00 Location of Patient: PreOp Preparation: Sterile Prep Arterial Line Location: Radial Ultrasound Used: Yes Purpose - Visualization and Identification of Vasculature: Yes Narrative: Invasive line placement per sterile protocol utilized.
[2023-07-30] MEDS: ONDANSETRON 4 MG/2 ML VIAL IVP PRN (14:17)
--- NOTE | 2023-07-30 14:17 | P.CONS ---
History of Present Illness - Reason for Consult Consult date: 07/30/23 Medical management Requesting physician: Kit Dao - Chief Complaint Neck pain, bilateral hand numbness, burning, pain, bowel incontinence - History of Present Illness This is a 58-year-old female with past medical history significant for cervical myelopathy and radiculopathy ,chronic back pain with multiple lumbar interventions, degenerative disc disease, neuropathy, anxiety, depression, ongoing nicotine dependence, Ex Vaper,PONV and multiple other medical issues referred to the ER per orthopedic spine for urgent surgery. Patient completed outpatient cervical MRI 07/28/2023 reporting moderate to severe multilevel disc/endplate degenerative changes, hypertrophic facet on convertible joint arthropathy, grade 2 anterior releases at C4-C5 and grade 1 retrolisthesis at both C5-C6 and C6 and C7. Moderate to severe spinal canal stenosis at C4-C5 with cord edema here suggesting cord compression, correlate for myelopathic symptoms, moderate spinal canal stenosis at both C3-C4 and C5-C6, mild at C6-C7, variable neural foraminal stenosisreports increasing hand pain, numbness and burning sensation and now bowel incontinence. Evaluated by orthopedic spine, surgery pending. Afebrile, WBC 13. Hemoglobin 13.2, platelets 265, INR 0.8. Electrolytes and renal function within normal limits. Glucose 118. Denies chest pain, palpitations or shortness of breath. Review of Systems ROS Statement: Those systems with pertinent positive or pertinent negative responses have been documented in the HPI. ROS Other: All systems not noted in ROS Statement are negative. Past Medical History Past Medical History: Musculoskeletal Disorder Additional Past Medical History / Comment(s): Hx migraines - post procedure. DDD, chronic back pain, numbness and tingling down legs. Left leg edema in knee area and down leg, head tremors. neuropathy. hands feel cold but feel like on fire very painful. History of Any Multi-Drug Resistant Organisms: None Reported Past Surgical History: Appendectomy, Back Surgery, Tubal Ligation Additional Past Surgical History / Comment(s): Exploratory laparoscopy, right oophorectomy and right salpingectomy, pain pump implant X3, pain procedures, spinal fusion with ann and screws. Past Anesthesia/Blood Transfusion Reactions: Motion Sickness, Postoperative Nausea & Vomiting (PONV) Past Psychological History: Anxiety, Depression Smoking Status: Current every day smoker Past Alcohol Use History: None Reported Additional Past Alcohol Use History / Comment(s): WAS Vaping daily for 1 1/2 years, BACK TO SMOKING 1PPD, smoked up to 3PPD prior to that for about 35 years. as of 03/2022 1 pp Past Drug Use History: None Reported - Past Family History Daughter(s) Family Medical History: Blood Disorder Additional Family Medical History / Comment(s): Factor V. Mother Family Medical History: Cancer, Deep Vein Thrombosis (DVT) Father Family Medical History: Cancer Medications and Allergies Home Medications Medication Instructions Recorded Confirmed Type ALPRAZolam [Xanax] 0.5 mg PO Q8H PRN 04/26/19 07/29/23 History DULoxetine HCL [Cymbalta] 90 mg PO DAILY 07/12/19 07/29/23 History Celecoxib [CeleBREX] 100 mg PO PC-LUNCH 12/16/22 07/29/23 History Naloxone HCl 0.4 mg NASAL ONCE PRN 07/29/23 07/29/23 History Patient Own Pump 0 bag 07/29/23 History Pregabalin [Lyrica] 300 mg PO BID 07/29/23 07/29/23 History oxyCODONE HCL/ACETAMINOPHEN 1 tab PO Q6H PRN MDD 3 tabs 07/29/23 07/29/23 History [Percocet 10-325 mg] Allergies Allergy/AdvReac Type Severity Reaction Status Date / Time Iodinated Contrast Media AdvReac Severe MIGRAINE Verified 07/30/23 13:34 [Iodinated Contrast Media - Oral and] Physical Exam Vitals: Vital Signs Temp Pulse Pulse Resp BP BP Pulse Ox 07/30/23 07:30 80 18 07/30/23 07:11 97.7 F 80 18 117/74 98 07/30/23 02:00 97.6 F 91 16 117/77 93 L 07/29/23 19:55 97.9 F 83 13 111/74 96 07/29/23 17:52 97.7 F 87 16 129/82 97 07/29/23 17:24 80 16 110/60 98 07/29/23 14:21 98.5 F 98 18 114/72 95 Intake and Output 07/29/23 07/30/23 07/30/23 22:59 06:59 14:59 Intake Total 120 Balance 120 Intake: Oral 120 Other: Voiding Method Toilet Toilet # Voids 3 Weight 68.039 kg General: [Patient sitting up in bed, awake, alert and oriented times 3. NAD HEENT: [PERRL. EOMI. No pharyngeal erythema or exudate.] Neck: [Supple, no JVD no adenopathy.] Cardiac: [Heart regular in rate and rhythm. No S3. No S4. No clicks, rubs. No murmur.] Lungs: [Clear to auscultation bilaterally.] Abdomen: [Soft, nondistended, nontender , no guarding or rigidity, no organomegaly. Bowel sounds presnt and normoactive in all 4 quadrants.] Extremes: [No edema no cyanosis no claudication normal pulses] Skin: [No rash.] Neurologic: Limited:, leaving for OR -alert and oriented x 3, upper and lower extremity weakness ,gait dysfunction, defer to orthopedic spine. Results CBC & Chem 7: 07/29/23 15:03 07/29/23 15:03 Labs: Abnormal Lab Results - Last 24 Hours (Table) 07/29/23 07/29/23 07/29/23 Range/Units 15:03 15:03 15:03 WBC 13.0 H (3.8-10.6) k/uL Lymphocytes # 4.9 H (1.0-4.8) k/uL PT 9.6 L (10.0-12.5) sec Chloride 112 H (98-107) mmol/L BUN 19 H (7-17) mg/dL Glucose 118 H (74-99) mg/dL Assessment and Plan Assessment: Severe cervical spondylitic myelopathy, upper and lower extremity weakness, severe C3-7 spondylosis with stenosis C4-5 grade 2 unstable spondylolisthesis Obesity, BMI 29 Nicotine dependence, smokes 1 and half packs per day Chronic back pain DDD Plan: Continue on current medication regimen ,monitoring and symptomatic t reatment. En route to OR. Patient states she was informed that would be a 2 part surgery, anterior today and posterior approach tomorrow. Pain management, DVT prophylaxis as per orthopedic spine. Nicotine cessation reinforced, nicotine patch ordered, The impression and plan of care has been dictated as directed. : I performed a history and examination of this patient, discussed the same with the dictator. I agree with the dictator's note ,documented as a scribe. Any additional findings or plans will be noted.
[2023-07-30] MEDS ORDERED: PHENYLEPHRINE-0.9% NACL SYG 1,000 MCG/10 ML SYRINGE ONE (16:21)
[2023-07-30] MEDS ORDERED: SUCCINYLCHOLINE CHLORIDE 200 MG/10 ML VIAL IV ONE (16:21)
[2023-07-30] MEDS ORDERED: fentaNYL (PF) 50 MCG/ML 2 ML AMP ONE (16:21)
[2023-07-30] MEDS ORDERED: GLYCOPYRROLATE 0.2 MG/ML 2 ML VIAL ONE (16:21)
[2023-07-30] MEDS ORDERED: NEOSTIGMINE 1 MG/ML 10 ML VIAL ONE (16:21)
[2023-07-30] MEDS ORDERED: ROCURONIUM 10 MG/ML (5 ML VIAL) IV ONE (16:21)
[2023-07-30] MEDS ORDERED: KETAMINE HCL IN 0.9 % NACL 50 MG/5 ML SYRINGE ONE (16:21)
[2023-07-30] MEDS ORDERED: MIDAZOLAM 2 MG/2 ML VIAL ONE (16:21)
[2023-07-30] MEDS ORDERED: PROPOFOL 10 MG/ML 20 ML VIAL IV ONE (16:21)
[2023-07-30] MEDS ORDERED: TRANEXAMIC 1,000 MG/100ML-NACL PREMIX BAG ONE (16:21)
[2023-07-30] MEDS: THROMBIN (BOVINE) 5,000 UNIT VIAL MISCELLANE ONE (17:39)
--- NOTE | 2023-07-30 19:29 | P.OP ---
Date of Procedure: 07/30/23 Preoperative Diagnosis: 1. CERVICAL SPONDYLOTIC MYELOPATHY, SEVERE 2. 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 UE AND LE WEAKNESS 5. UE PARESTHESIAS 6. PARAPLEGIA 7. COMPLEX MEDICAL PATIENT Postoperative Diagnosis: 1. CERVICAL SPONDYLOTIC MYELOPATHY, SEVERE 2. 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 UE AND LE WEAKNESS 5. UE PARESTHESIAS 6. PARAPLEGIA 7. COMPLEX MEDICAL PATIENT Procedure(s) Performed: 1. C3-4 ANTERIOR INTERBODY ARTHRODESIS 2. C4-5 ANTERIOR INTERBODY ARTHRODESIS 3. C5-6 ANTERIOR INTERBODY ARTHRODESIS 4. C3-6 ANTERIOR INSTRUMENTATION 5. C3-4, C4-5, C5-6 INSERTION OF BIOMECHANICAL DEVICE CAGES X3 USE OF IONM Implants: -NOEMI CASCADIA CAGES X3 8MM 9MM 8MM -NOEMI OZARK PLATE 3 LEVEL -16 AND 14 MM SCREWS -[employer]NAT[employer], AUTOGRAFT Anesthesia: GETA Surgeon: Kit Dao Junior Sales Representative #1: Holden Hokos (WAS PRESENT AND ASSISTED WITH ALL ASPECTS OF THE CASE FROM POSITION TO CLOSURE) Estimated Blood Loss (ml): 50 IV fluids (ml): 1,500 Urine output (ml): 350 Pathology: none sent Condition: stable Disposition: PACU Indications for Procedure: Spine Surgery Clinical and Risk Review FREDY SKELTON is a 58 YO FEMALE presenting for evaluation of UE WEAKNESS, PROGRESSIVE AND SEVERE WITH NECK PAIN, DEBILITY, FINE MOTOR DISRUPTION, MEYLOPATHY. It was my pleasure to have seen and examined FREDY SKELTON. In our visit today we have had a chance to go over subjective complaints, physical examination findings and treatments including the natural course history without intervention and various interventional options. The patients imaging demonstrates C3-7 SPONDYLOSIS SEVERE, C4-5 UNSTABLE SPONDYLOLISTHESIS GRADE II, SEVERE STENOSIS WITH MYELOMALACIA. On physical exam, FREDY SKELTON demonstrates BUE WEAKNESS 3/5, HYPERREFLEXIA +3/4 ALL UE AND LE DTR, +COBURN'S B/L BRISK, SUSTAINED CLONUS BLE, I have explained to the patient that as their condition progresses it will cause further neurological deficits and eventual paralysis. Based on the patients imaging, physical exam, and the rapid progression and disabling nature of their symptoms, at this time I recommend surgery in the form or a: C3-7 ACDF WITH POSSIBLE CORPECTOMY. I discussed the risk and benefits of this procedure at length with FREDY SKELTON. The patient SPOUSE AND DAUGHTER agreed to considered pursuing the procedure abovementioned. Prior to surgery, she should follow up with her PCP (Cardio, ID, IM etc) for clearance. Questions were invited and answered, and the patient wishes to proceed as outlined below. Currently, I am recommendin. C3-7 ANTERIOR CERVICAL DISCECOMTY AND FUISON WITH POSSIBLE CORPECTOMY 2. Follow up with PCP for surgical clearance 3. Review of surgical risks and benefits as well as an educational packet on the proposed surgical procedure. Risks: All surgical procedures come with inherent risks, including those related to positioning, anesthesia, intraoperative findings, and postoperative complications. It is important to understand that surgery does not come with any guarantee of a successful outcome as complications and adverse events are always possible. The patient was given a handout in office today discussing the surgical procedure and risks associated with the intervention, both of which were discussed with the patient. These risks include but are not limited to the following: * Experiencing same, different or even worse symptoms in back, neck, arms, or legs compared to before surgery. * Requiring further surgery or other forms of treatment presently or at some time in the future at same or other levels of the intended spine surgery. * On an extreme but fortunately relatively rare basis severe complication such as blindness, stroke, heart attack, temporary and/or permanent nerve injury, paralysis, coma, or may occur, sometimes without known explanation. * Surgical complications may include but are not limited to risk of infection, fluid accumulation in the surgical dissection site, including a seroma or hematoma, that requires additional surgery, wound drainage, bleeding, new numbness or weakness, vision changes/loss, spinal fluid leakage, non-healing and/or infected incision, headaches, difficulty or inability to swallow, hoarseness, hemopneumothorax, pneumothorax, impotence, retrograde ejaculation, vaginal dryness; injury to nerves, spinal cord, blood vessels, lymphatics or other vital organs (i.e., bowel injury, injury to the great vessels); heterotopic bone formation; complications related to the hardware such as screws, rods, cages including misplaced hardware, device failure, instrumentation at the wrong spine level, hardware fracture/breakage, or hardware loosening; vertebral failure of the spinal column above or below the newly placed hardware; retained surgical instrumentations or devices and the need for further surgery. * Medical risks of the planned spine surgery include but are not limited to generalized Infections to the whole body or local areas outside of the surgical site (sepsis), heart attack, bleeding, anaphylaxis, meningitis, seizure, epilepsy, hearing loss, burn mujica, laceration of the head or other areas of the body, bruising, hypersensitivity of the skin, bladder over distension; allergic reaction; shoulder injury related to positioning; fat, blood and air clots to other areas of the body like heart, lungs, brain; failure of internal organs such as lungs, kidneys, liver and excessive bleeding. If blood transfusions are necessary, note that transfusions may cause intolerance reactions such as anaphylaxis or other complex reactions. * Despite best efforts, the results of spine surgery might not heal in terms of bone, soft tissues such as skin, fascia, ligaments, and joints. Additionally, in order to achieve best possible results, spine surgery may be carried out beyond the initially planned levels and involve decompression, fusion including insertion of hardware at levels other than the original intended area of surgical interest change some portions of the procedure in order to ensure the best possible outcomes. * With spine surgery and spinal fusion, there are different off label uses of instrumentation (devices, implants and hardware) as well as biological substances (bone morphogenic proteins, demineralized bone matrix) as well as using extra bone from allograft sources (i.e. cadaver bone) or autograft (iliac crest bone, ribs, or the spine itself). The patient has been given information about these practices and their inherent risks and benefits. The patient has had a chance to review all the listed information, has been given print outs detailing this information, and has had all his/her questions answered to their satisfaction. It was my pleasure to have seen and examined FREDY SKELTON. In our visit today we have had a chance to go over my understanding of our patient's current condition, the natural course history without intervention and various interventional options. Questions were invited and answered, and the patient wishes to proceed as outlined above. I have seen and examined the patient for 25 minutes and we have spent more than 50% of the time in repeat and detailed counseling about the patient's condition, its natural course history with out and as much as can be predicted with surgery and re-review of various surgical treatment options. In conclusion, FREDY SKELTON and SPOUSE AND DAUGHTER requested we proceed with the above suggested surgery and are willing to accept risks and limitations of the suggested surgery as nature of the disease process and our best attempts at treatment for the condition. Thank you again for allowing us to be part of your patient's care. Please don't hesitate to contact me if you have any further questions. Signed and authenticated by: Kit Silva [facility] [address] [facility] [address] [address] Description of Procedure: C3-6 ACDF The patient was seen and examined in the preoperative area. All preoperative protocols were followed. Informed consent was obtained, risks and benefits of the procedure were discussed at length. Risks including bleeding infection damage to the surrounding tissue and risk of reoperation were discussed with the patient. Risk of anesthesia up to and including was discussed with the patient. These are outlined in the risk review. They were willing to accept these risks and all the risks of surgery. The patient was given a weight-based dose of antibiotics in the form of 2 g Ancef. The patient was seen and evaluated by the anesthesia team who deemed them fit for surgery. The site was marked, the patient was willing to proceed with the procedure. The patient was transferred to the operative suite by the Department of anesthesia. They were then drifted off to sleep by the department anesthesia and GETA was performed. The patient tolerated this well. Monahan catheter was placed by nursing staff, a-traumatically. Once confirmation of lines and ventilation the patient was transferred to a Supine Anderson table very carefully. All bony prominences including wrists, elbows, axilla, chest, hips, and thighs, and feet were padded very well. Special attention was paid to the genitalia, and these were padded accordingly. SCDs were placed on bilateral lower extremities and were connected. Arms were well padded and placed at their side thumbs up. Once in position, again we confirmed good ventilation capabilities and that lines were running appropriately. The patients Cervical spine was then exposed. 1010s were placed outlining the incision site. Standard alcohol was used to clean the incision site and allowed to dry. C-arm was used to bio-marisel the patient and confirm level for incision which was marked with a skin marker. Operative briefing was performed with all teams and everyone in agreement to proceed. The patient was then prepped and draped in a normal sterile fashion. Timeout was then performed, and all parties agreed with the procedure to be performed. Transverse skin incision was then made on the right side of the patient's neck 3 cm and dissection taken down to the platysma which was split transversely. Sub platysma flap was made, and interval identified between SCM and medial structures. Omohyoid was visualized and protected. Blunt dissection taken down to the anterior cervical fascia which was identified. Blunt prob was then placed and lateral image taken which confirmed levels for operation. These levels were then marked with a bovi. Subperiosteal dissection of the longissimus muscles were then done over these levels identifying uncovertebral joints bilaterally. Retractor was then placed deep to these muscles and held in place with a bed arm. Waterloo pins were placed into C3 and C4 and gentle distraction taken out over the levels. Edwina rongeur used to remove disc material. Operating microscope brought in for visualization. Complete discectomy performed at this level with curette, rongure and pituitary. High speed noemy used to remove osteophytes anteriorly and posteriorly until PLL was identified. 6-0 up curette then used to identify the canal and ressect the PLL. 2-0 and 3-0 Kerrison used then to remove PLL and disc herniation and performed b/l foraminotomies. Once good decompression was accomplished, meticulous hemostasis was performed. Sizers were then placed under lateral fluoroscopy until the desired height and lordosis. Cage was then selected, packed with autograft and allograft and placed under lateral imaging. Once in good position it was tested and stable. Motors run before and after cage placement were stable. The wound was irrigated, and autograft placed lateral to the cage anteriorly for fusion. Waterloo pin was then removed from C3 and placed into C5 and bone wax placed in their void. Gentle distraction taken out over C4-5 now. Complete discectomy done at C4-5 as described including decompression, b/l foraminotomies and PLL resection. Burring of endplates was minimal, osteophytes removed as described. Spacers were then sized and placed under lateral imaging. Cage selected, packed with graft and placed under lateral images. Once in position, meticulous hemostasis performed, and motors remained stable before and after cage placement. AP image confirmed good placement of cages. Wound was irrigated. At C5-6, Waterloo pins were placed into C5 and C6 and gentle distraction taken out over the levels. Edwina rongeur used to remove disc material. Operating microscope brought in for visualization. Complete discectomy performed at this level with curette, rongure and pituitary. High speed noemy used to remove osteophytes anteriorly and posteriorly until PLL was identified. 6-0 up curette then used to identify the canal and ressect the PLL. 2-0 and 3-0 Kerrison used then to remove PLL and disc herniation and performed b/l foraminotomies. Once good decompression was accomplished, meticulous hemostasis was performed. Sizers were then placed under lateral fluoroscopy until the desired height and lordosis. Cage was then selected, packed with autograft and allograft and placed under lateral imaging. Once in good position it was tested and stable. Motors run before and after cage placement were stable. The wound was irrigated, and autograft placed lateral to the cage anteriorly for fusion. A separate, non-integrated plate was then selected and sized under lateral image. The plate was then placed with screws. Fixed screws drilled into C6 b/l and screws placed. Then into C5 C4 and C3 bilaterally. All locking mechanisms were set, and all screws had good purchase. Final AP and lateral images taken confirmed good placement of hardware and good reduction and orthodox of height. The wound was then irrigated copiously with NSS. Surgicel placed deep in the wound. A deep drain placed out a separate incision and sewed into place. Layered closure then performed with 3-0 Vicryl in the platysma and sub-Q tissue. 2-0 Nylon placed in the skin The wound was then cleaned, dried and skin glue placed. Once glue dried telfa, 4x4, and tegaderms were placed for dressing. The patient was then transferred back to their hospital bed a-traumatically. The drain continued to hold suction. They were placed in a soft collar. They were then awakened by the department of anesthesia having tolerated the procedure well without complications.
[2023-07-30] MEDS ORDERED: HYDROcodone/APAP 5-325MG 1 EACH TAB PO PRN (19:35)
[2023-07-30] MEDS ORDERED: SENNOSIDES-DOCUSATE SODIUM 1 EACH TAB PO PRN (19:35)
[2023-07-30] MEDS ORDERED: MAGNESIUM HYDROXIDE 2,400 MG/30 ML CUP PO PRN (19:35)
[2023-07-30] MEDS: HYDROmorphone 0.5 MG/0.5 ML SYRINGE IVP ONE ×3 (19:52→20:40)
--- NOTE | 2023-07-30 20:02 | XR ---
PROCEDURE: XR cervical spine limited - 3V DATE AND TIME: 07/30/2023 7:24 PM CLINICAL INDICATION: PHH; C3-C6 anterior fusion TECHNIQUE: Department protocol COMPARISON: 07/23/2023 radiographs FINDINGS: The prior study C3-C6 anterior fusion procedure has been completed. Fluoroscopy was provided for the procedure, with two lateral views and one AP view digitally stored o n PACS. Dose: 1.9852 mGy IMPRESSION: Status post C3-C6 anterior fusion.
[2023-07-30 20:57] LABS: Glucose,Whole Blood 120 mg/dL (70-110)
[2023-07-30] MEDS: HYDROmorphone 1 MG/ML 1 ML SYRINGE IVP PRN (21:17)
[2023-07-30] MEDS: DEXAMETHASONE SOD PHOSPHATE 4 MG/ML 1 ML VIAL IV ONE (23:03)
[2023-07-30] MEDS: HYDROcodone/APAP 10-325MG 1 EACH TAB PO PRN (23:30)
[2023-07-31] MEDS: LACTATED RINGERS 1,000 ML IV SCH (00:07)
[2023-07-31] MEDS: HYDROmorphone 0.5 MG/0.5 ML SYRINGE IVP PRN (00:08)
[2023-07-31 04:30] LABS: Basophils % (A) 0 %; Eosinophils % (A) 0 %; HCT 41.7 % (34.0-46.0); HGB 13.3 gm/dL (11.4-16.0); Lymphocytes # (A) 1.7 k/uL (1.0-4.8); Lymphocytes % (A) 11 %; MCH 30.4 pg (25.0-35.0); MCHC 31.9 g/dL (31.0-37.0); MCV 95.5 fL (80.0-100.0); Mean Platelet Volume 7.5; Monocytes # (A) 0.4 k/uL (0-1.0); Monocytes % (A) 2 %; Neutrophils # (A) 12.9 k/uL (1.3-7.7); Neutrophils % (A) 86 %; Platelet Count 268 k/uL (150-450); RBC 4.37 m/uL (3.80-5.40); RDW 12.2 % (11.5-15.5); WBC 15.1 k/uL (3.8-10.6)
[2023-07-31 05:01] LABS: African American GFR (CKD) >90 (>60 ml/min/1.73 sqM); Anion Gap 4 mmol/L; Blood Urea Nitrogen 11 mg/dL (7-17); Carbon Dioxide 27 mmol/L (22-30); Chloride 102 mmol/L (98-107); Glucose 132 mg/dL (74-99); Non-African American GFR(CKD) >90 (>60 ml/min/1.73 sqM); Potassium 4.2 mmol/L (3.5-5.1); Sodium 133 mmol/L (137-145)
--- NOTE | 2023-07-31 11:13 | CT ---
EXAMINATION TYPE: CT cervical spine wo con DATE OF EXAM: 07/31/2023 COMPARISON: 06/15/2023 HISTORY: s/p C3-C6 ACDF CT DLP: 345.[address] of the cervical spine was performed with bone and soft tissue window settings submitted . Coronal and sagittal reconstruction is obtained. Postoperative changes of anterior cervical discectomy and fusion extending from C3 through C6. Anteri or fixation plate is in place with intervertebral spacers noted at each level. There is chronic, retr olisthesis at C2-3 measuring 2.4 mm. There is also stable and chronic retrolisthesis of C4 on C5 nathalia uring 2.9 mm. Alignment is otherwise stable and within normal limits. Postsurgical soft tissue change s are appreciated. Right-sided surgical drain is noted to be in place. Incidental upper lobe parasept al emphysema. Subpleural nodularity right upper lobe measuring 8 mm and 5.4 mm respectively. Follow-u p CT recommended. IMPRESSION: 1. Postoperative changes as discussed of the cervical spine. 2. Right apical subpleural nodularity. Follow-up CT recommended.
--- NOTE | 2023-07-31 11:46 | P.PN ---
Subjective Progress Note Date: 07/31/23 Principal diagnosis: 1. CERVICAL SPONDYLOTIC MYELOPATHY, SEVERE 2. 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 UE AND LE WEAKNESS 5. UE PARESTHESIAS 6. PARAPLEGIA 7. COMPLEX MEDICAL PATIENT Patient was seen at bedside this morning lying in bed in semi-recumbent position in ICU. Hard cervical collar is in place and dressing is present as well as drain over anterior cervical spine. ACDF C3-C6 was performed yesterday. Patie nt planning to go for stage II spine surgery C2-T2 posterior cervical decompression and fusion later today. Patient says she is having some difficulty swallowing at this time. Patient says she has not been up out of bed since surgery. Patient says she has been trying to move her arms a little bit while resting in bed and pump her ankles up and down. Patient denies any other issues at this time. Objective - Vital Signs Vital signs: Vital Signs Temp 97.5 F L 07/31/23 08:00 Pulse 86 07/31/23 09:00 Resp 11 L 07/31/23 09:00 BP 151/98 07/31/23 09:00 Pulse Ox 93 L 07/31/23 09:00 FiO2 Intake & Output 07/30/23 07/31/23 07/31/23 18:59 06:59 18:59 Intake Total 2049 630 60 Output Total 3060 600 Balance 2049 -2429 -540 Weight 73 kg Intake: IV 2049 630 60 Lactated Ringers 1,000 ml 180 60 @ 20 mls/hr IV .Q24H [facility] Rx#:[id number] ceFAZolin 2 gm In Sodium 50 Chloride 0.9% 50 ml @ 100 mls/hr IVPB ONCE PRN Rx# :[id number] Output: Drainage 60 Anterior Neck 60 Urine 2950 600 Estimated Blood Loss 50 Other: Voiding Method Toilet Indwelling Catheter ABP, PAP, CO, CI - Last Documented Arterial Blood Pressure 154/78 - Exam Inspection: Hard cervical collar is in place and dressing is present over anterior cervical spine. Drain is in place. Some serosanguineous output present. Dressing appears to be clean, dry, intact. Maintain dressing at this time Sensation: diminished in BUE. Equal, symmetric, bilat intact throughout the lower extremities. Palpation: fair amount TTP over the anterior cervical spine near incision. Some generalized tenderness to palpation over the posterior cervical spine and at midline low back. NTTP throughout rest of exam Range of motion: Full range of motion throughout bilateral elbows and wrist in flexion/extension bilaterally. Limited range of motion in bilateral shoulder secondary to weakness and stiffness referred to the back. Limited range of motion in bilateral lower extremities on exam secondary to weakness. Patient is able to wiggle digits in bilateral feet. Motor: 3/5 in all major motor groups BUE. 4-/5 in all major motor groups in BLE Neurovascular: Radial pulse intact, 2+ bilaterally. Cap refill under 3 seconds in digits of upper extremities Special test: Negative Osmani bilaterally. - Labs CBC & Chem 7: 07/31/23 04:00 07/31/23 04:00 Labs: Abnormal Lab Results - Last 24 Hours (Table) 07/30/23 07/31/23 07/31/23 Range/Units 20:55 04:00 04:00 WBC 15.1 H (3.8-10.6) k/uL Neutrophils # 12.9 H (1.3-7.7) k/uL Sodium 133 L (137-145) mmol/L Creatinine 0.43 L (0.52-1.04) mg/dL Glucose 132 H (74-99) mg/dL POC Glucose (mg/dL) 120 H (70-110) mg/dL Assessment and Plan Assessment: 1. CERVICAL SPONDYLOTIC MYELOPATHY, SEVERE 2. 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 UE AND LE WEAKNESS 5. UE PARESTHESIAS 6. PARAPLEGIA 7. COMPLEX MEDICAL PATIENT -Postop day 1 status post C3 C6 ACDF Plan: 1. 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 Patient stable bedside this morning in the ICU. Patient going for CT scan of the cervical spine. Patient to be n.p.o. currently. Stage II C2-T2 posterior cervical decompression and fusion scheduled for later today. Patient to remain in bed at this time. Pain medication as needed. We will continue to follow patient during stay in hospital. 2. Appreciate medical, pulmonology management 3. Pain management -[place]; Lyrica; Flexeril 4. DVT prophylaxis -SCDs and ELMER martin 5. GI prophylaxis -senna 6. PT/OT -encouraged to perform gentle range of motion exercises of extremities while resting in bed 7. Encourage incentive spirometer use Time with Patient: Less than 30
[2023-07-31] MEDS: SODIUM CHLORIDE 0.9% 100 ML with ceFAZolin 2,000 MG IV ONE (14:28)
[2023-07-31] MEDS ORDERED: DEXAMETHASONE SOD PHOSPHATE 10 MG/ML 1 ML VIAL ONE (14:28)
[2023-07-31] MEDS: LACTATED RINGERS 1,000 ML IV ONE ×3 (14:28→14:52)
[2023-07-31] MEDS ORDERED: ROCURONIUM 10 MG/ML (5 ML VIAL) IV ONE (14:28)
[2023-07-31] MEDS ORDERED: TRANEXAMIC 1,000 MG/100ML-NACL PREMIX BAG ONE (14:28)
[2023-07-31] MEDS ORDERED: HYDROmorphone (PF) 1 MG/ML ONE (14:28)
[2023-07-31] MEDS ORDERED: PROPOFOL 10 MG/ML 20 ML VIAL IV ONE (14:28)
[2023-07-31] MEDS ORDERED: LIDOCAINE 1% INJ 10MG/ML (20 ML MDV) ONE (14:28)
[2023-07-31] MEDS ORDERED: SUCCINYLCHOLINE CHLORIDE 200 MG/10 ML VIAL IV ONE (14:28)
[2023-07-31] MEDS ORDERED: fentaNYL (PF) 50 MCG/ML 2 ML AMP ONE (14:28)
[2023-07-31] MEDS: GENTAMICIN 80 MG in SODIUM CHLORIDE 0.9% IRRIGATIO 3,000 ML IRRIGATION ONE (15:18)
[2023-07-31] MEDS: ceFAZolin 3,000 MG in SODIUM CHLORIDE 0.9% IRRIGATIO 3,000 ML IRRIGATION ONE (15:18)
[2023-07-31] MEDS: THROMBIN (BOVINE) 5,000 UNIT VIAL TOPICAL ONE (15:18)
[2023-07-31] MEDS: VANCOMYCIN 1,000 MG VIAL MISCELLANE ONE (16:48)
--- NOTE | 2023-07-31 17:01 | FL ---
EXAMINATION TYPE: FL guidance operating room, FL guidance operating room Intraoperative/procedural fl uoroscopic services were provided. Total fluoroscopy time is 52 seconds with a total of 3 submitted i mages to PACS. Please see the operative/procedural note for further details. DAP: 0.8726 mGym2
--- NOTE | 2023-07-31 17:23 | P.OP ---
Date of Procedure: 07/31/23 Preoperative Diagnosis: 1. CERVICAL SPONDYLOTIC MYELOPATHY, SEVERE 2. 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 UE AND LE WEAKNESS 5. UE PARESTHESIAS 6. PARAPLEGIA 7. COMPLEX MEDICAL PATIENT Postoperative Diagnosis: 1. CERVICAL SPONDYLOTIC MYELOPATHY, SEVERE 2. 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 UE AND LE WEAKNESS 5. UE PARESTHESIAS 6. PARAPLEGIA 7. COMPLEX MEDICAL PATIENT Procedure(s) Performed: 1. C2-T2 posterolateral instrumented fusion (13308, [id number]) 2. C2-T2 instrumentation (29201) 3. C2-T1 decompressive laminectomy, partial medial facetectomy and foraminotomy (89802, [id number]) USE OF IONM Implants: -NOEMI POSTERIOR CERVICAL SYSTEM -AUTOGRAFT -MAGNATOS Anesthesia: GETA Surgeon: Kit Dao Chief School Finance Officer #1: Holden Hooks (WAS PRESENT AND ASSISTED WITH ALL ASPECT OF THE CASE FROM POSITION TO DRESSING PLACEMENT) Estimated Blood Loss (ml): 150 IV fluids (ml): 1,500 Urine output (ml): 300 Pathology: none sent Condition: stable Disposition: PACU Indications for Procedure: FREDY SKELTON is a 58 YO FEMALE presenting for evaluation of UE WEAKNESS, PROGRESSIVE AND SEVERE WITH NECK PAIN, DEBILITY, FINE MOTOR DISRUPTION, MEYLOPATHY. It was my pleasure to have seen and examined FREDY SKELTON. In our visit today we have had a chance to go over subjective complaints, physical examination findings and treatments including the natural course history without intervention and various interventional options. The patients imaging demonstrates C3-7 SPONDYLOSIS SEVERE, C4-5 UNSTABLE SPONDYLOLISTHESIS GRADE II, SEVERE STENOSIS WITH MYELOMALACIA. On physical exam, FREDY SKELTON demonstrates BUE WEAKNESS 3/5, HYPERREFLEXIA +3/4 ALL UE AND LE DTR, +COBURN'S B/L BRISK, SUSTAINED CLONUS BLE, I have explained to the patient that as their condition progresses it will cause further neurological deficits and eventual paralysis. Based on the patients imaging, physical exam, and the rapid progression and disabling nature of their symptoms, at this time I recommend surgery in the form or a: STAGE II C2-T2 PCDF I discussed the risk and benefits of this procedure at length with FREDY SKELTON. The patient SPOUSE AND DAUGHTER agreed to considered pursuing the procedure abovementioned. Prior to surgery, she should follow up with her PCP (Cardio, ID, IM etc) for clearance. Questions were invited and answered, and the patient wishes to proceed as outlined below. Currently, I am recommendin. STAGE II: C2-T2 POSTERIOR CERVICAL DECOMPRESSION AND FUSION 2. Follow up with PCP for surgical clearance 3. Review of surgical risks and benefits as well as an educational packet on the proposed surgical procedure. Description of Procedure: C2-T2 decompression and fusion The patient was seen and examined in the preoperative area. All preoperative protocols were followed. Informed consent was obtained, risks and benefits of the procedure were discussed at length. Risks including bleeding infection damage to the surrounding tissue and risk of reoperation were discussed with the patient. Risk of anesthesia up to and including was discussed with the patient. These are outlined in the risk review. They were willing to accept these risks and all of the risks of surgery. The patient was given a weight- based dose of antibiotics in the form of 2 g Ancef. The patient was seen and evaluated by the anesthesia team who deemed them fit for surgery. The site was marked, the patient was willing to proceed with the procedure. The patient was transferred to the operative suite by the Department of anesthesia. They were then drifted off to sleep by the department anesthesia and GETA was performed. The patient tolerated this well. pre-positioning motors were obtained.[place] in place from the floor. Once confirmation of lines and ventilation White head clamp was placed on the patient and secured and the patient was transferred to a [prone Anderson table very carefully] with the White head of measurement & insights the head was secured and placed into an optimal position x- ray confirmed this position. Post-positioning motors remained stable. All bony prominences including wrists, elbows, axilla, chest, hips, and thighs, and feet were padded very well. Special attention was paid to the genitalia and these were padded accordingly. SCDs were placed on bilateral lower extremities and were connected. Arms were well padded and placed tucked at his side thumbs down. Shoulders were gently taped down to the table.. Once in position, again we confirmed good ventilation capabilities and that lines were running appropriately. The patient's posterior cervical spine was then exposed. 1010s were placed outlining the incision site. Standard alcohol was used to clean the incision site and allowed to dry. C-arm was used to biomark the patient and confirm level for incision which was marked with a skin marker. Operative briefing was performed with all teams and everyone in agreement to proceed. The patient was then prepped and draped in a normal sterile fashion. Timeout was then performed and all parties were in agreement with the procedure to be performed. Midline skin incision made over the previously bio-marked area and dissection taken down midline to the SP of C2-T2. Subperiosteal dissection taken out over the lamina and lateral masses of C2-C7 and TVP of T1 and T2. Once exposure complete, the wound was irrigated and the C-arm brought in for imaging. A penfield 4 was used to bluntly dissect the medial border of C2 pedicle and placed for guidance. C arm used and a noemy hole made for the starting point. The C2 pedicle was then drilled in 2 mm increments to 16 mm using a ball tip feeler in between each drill session to make sure within the 4 heart with a good bottom. Once this was accomplished a screw was selected and placed under lateral fluoroscopic guidance. Screw had a good purchase. This was then repeated on the contralateral side. AP confirmed good placement of both screws. We then proceeded to the T1 and T2 screws bilaterally. A high speed noemy was used to remove the facet joint of C7 and to create a starting point for T1 and similarly, T1 facet for T2. Pedicle finder was then passed into T1 and T2 and imaging taken to confirm placement this was then removed and a tap placed ball-tipped probe was then placed and 4 heart of pedicle fell with good bottom. Screw was then measured and placed intoT1 and T2. This is repeated on the contralateral side. Imaging confirmed good placement of all 4 thoracic screws. The wound was then irrigated. Lateral mass screws were then drilled to 12 mm and placed at each level from C3-6. Each had a good bite. Rods were then sized and selected and cut to length. They were bent accordingly and lordosis and to fit the occiput plate. These were then secured into C2 bilaterally and then sequentially reduced into lateral mass screws and T1 and T2 screws without issues. All set screws were placed and were then final tightened and the position. Bilateral laminectomy, facetectomy and foraminotomies were then done from C2-T1 using high speed noemy, kerrison rongeur and upbiting curette. Bilateral laminotomy troughs were made with noemy followed by curette to release ligamentum. Rongure was then used to gently remove the lamina and facets posteriorly without issues. Meticulous hemostasis was performed after.. Motors were run before and after decompression and they remain stable. Good pulsations of the cord were noted after decompression. Foraminotomies then performed with kerrison rongeur and clean up of the laminectomy site. The wound was then copiously irrigated with 3 L of Ancef irrigation followed by 3 L of gentamicin irrigation followed by 3 L of normal sterile saline. Facet joints were drilled at each level to allow for fusion Surgicel was placed over the dura. MagnetOs were placed in the posterior lateral gutters along with autograft.. This was impacted into position for fusion. 2 g of powdered vancomycin was then placed deep within the wound and a deep drain was placed. We then proceeded with layered closure first in the deep fascia with #1 PDS then in the deep fascia followed by a running #1 stratafix. 0 Vicryl was used in the deep subq fascia and an 0 PDS stratafix used in the subdermal layer. Skin frances then approximated skin edges. The wound edges approximated very well. The wound was then cleaned and dressed sterilely with an operative foam dressing 4 x 4 and Tegaderm. The drain had good suction. The patient was placed in a hard cervical collar. The patient was transferred back to their hospital bed atraumatically. White head clamp was removed and pin sites were clear. Drain continued to hold suction. Patient was placed in a hard collar Patient was then awakened and extubated by the department of anesthesia having tolerated the procedure very well with no complications. They were transferred to the postoperative care unit in stable condition.
--- NOTE | 2023-07-31 17:28 | XR ---
EXAMINATION TYPE: XR cervical spine limited Intraoperative/procedural fluoroscopic services were prov ided. Total fluoroscopy time is 44.3 seconds with a total of 9 submitted images to PACS. Please see the operative/procedural note for further details. DAP: 0.9623 Gycm2
[2023-07-31] MEDS: HYDROmorphone 0.5 MG/0.5 ML SYRINGE IVP ONE ×3 (18:24→18:33)
[2023-07-31] MEDS: MEPERIDINE 50 MG/ML SYRINGE IVP ONE ×2 (18:42→19:15)
--- NOTE | 2023-07-31 18:45 | P.PN ---
Subjective Progress Note Date: 07/31/23 - Chief Complaint Neck pain, bilateral hand numbness, burning, pain, bowel incontinence - History of Present Illness 07/30/2023 This is a 58-year-old female with past medical history significant for cervical myelopathy and radiculopathy ,chronic back pain with multiple lumbar interventions, degenerative disc disease, neuropathy, anxiety, depression, ongoing nicotine dependence, Ex Vaper,PONV and multiple other medical issues referred to the ER per orthopedic spine for urgent surgery. Patient completed outpatient cervical MRI 07/28/2023 reporting moderate to severe multilevel disc/endplate degenerative changes, hypertrophic facet on convertible joint arthropathy, grade 2 anterior releases at C4-C5 and grade 1 retrolisthesis at both C5-C6 and C6 and C7. Moderate to severe spinal canal stenosis at C4-C5 with cord edema here suggesting cord compression, correlate for myelopathic symptoms, moderate spinal canal stenosis at both C3-C4 and C5-C6, mild at C6-C7, variable neural foraminal stenosisreports increasing hand pain, numbness and burning sensation and now bowel incontinence. Evaluated by orthopedic spine, surgery pending. Afebrile, WBC 13. Hemoglobin 13.2, platelets 265, INR 0.8. Electrolytes and renal function within normal limits. Glucose 118. Denies chest pain, palpitations or shortness of breath. 07/31/2023 status post stage I anterior cervical spine surgery yesterday. Tolerated well, sitting up in bed, wearing cervical collar, family at bedside. Positive pain. Scheduled to return to surgery today for stage II posterior cervical decompression and fusion. Moves all extremities, has not yet been out of bed. Denies nausea or vomiting. Denies chest pain, palpitations or shortness of breath. Objective - Vital Signs Vital signs: Vital Signs Temp 98.0 F 07/31/23 17:46 Pulse 95 07/31/23 18:15 Resp 16 07/31/23 18:15 BP 162/85 07/31/23 18:15 Pulse Ox 100 07/31/23 18:15 FiO2 Intake & Output 07/30/23 07/31/23 07/31/23 18:59 06:59 18:59 Intake Total 2049 630 1042 Output Total 3060 2200 Balance 2049 Weight 73 kg Intake: IV 2049 630 1042 Lactated Ringers 1,000 ml 180 240 @ 20 mls/hr IV .Q24H [facility] Rx#:[id number] ceFAZolin 2 gm In Sodium 50 Chloride 0.9% 50 ml @ 100 mls/hr IVPB ONCE PRN Rx# :[id number] Output: Drainage 60 Anterior Neck 60 Urine 2950 2050 Estimated Blood Loss 50 150 Other: Voiding Method Toilet Indwelling Catheter Indwelling Catheter ABP, PAP, CO, CI - Last Documented Arterial Blood Pressure 154/83 - Exam General: [Patient sitting up in bed, wearing cervical collar, awake, alert and oriented times 3. NAD HEENT: [PERRL. EOMI. Neck: [Supple, no JVD no adenopathy.] Drain present. Cardiac: [Heart regular in rate and rhythm. No S3. No S4. No clicks, rubs. No murmur.] Lungs: [Clear to auscultation bilaterally.] Abdomen: [Soft, nondistended, nontender , no guarding or rigidity, no organomegaly. +BS Extremes: [No edema no cyanosis no claudication normal pulses] Skin: [No rash.] Neurologic: Limited exam, postop day 1, moves all extremities, alert and oriented x 3- defer to orthopedic spine. - Labs CBC & Chem 7: 07/31/23 04:00 07/31/23 04:00 Labs: Abnormal Lab Results - Last 24 Hours (Table) 07/30/23 07/31/23 07/31/23 Range/Units 20:55 04:00 04:00 WBC 15.1 H (3.8-10.6) k/uL Neutrophils # 12.9 H (1.3-7.7) k/uL Sodium 133 L (137-145) mmol/L Creatinine 0.43 L (0.52-1.04) mg/dL Glucose 132 H (74-99) mg/dL POC Glucose (mg/dL) 120 H (70-110) mg/dL Assessment and Plan Assessment: Severe cervical spondylitic myelopathy, upper and lower extremity weakness, severe C3-7 spondylosis with stenosis C4-5 grade 2 unstable spondylolisthesis Status post stage 1 anterior cervical surgery, scheduled for stage II posterior cervical decompression and fusion today Obesity, BMI 29 Nicotine dependence, smokes 1 and half packs per day Chronic back pain DDD Plan: Continue on current medication regimen ,monitoring and symptomatic treatment. Stage II posterior cervical decompression and fusion pending .pain management, DVT prophylaxis as per orthopedic spine. Nicotine cessation reinforced, nicotine patch ordered. Aggressive pulmonary toileting with incenti ve spirometer reinforced. The impression and plan of care has been dictated as directed. : I performed a history and examination of this patient, discussed the same with the dictator. I agree with the dictator's note ,documented as a scribe. Any additional findings or plans will be noted.
[2023-08-01 05:37] LABS: Basophils % (A) 0 %; Eosinophils # (A) 0.1 k/uL (0-0.7); Eosinophils % (A) 0 %; HCT 44.5 % (34.0-46.0); HGB 14.6 gm/dL (11.4-16.0); Lymphocytes # (A) 1.5 k/uL (1.0-4.8); Lymphocytes % (A) 10 %; MCH 30.7 pg (25.0-35.0); MCHC 32.7 g/dL (31.0-37.0); MCV 93.9 fL (80.0-100.0); Mean Platelet Volume 8.2; Monocytes # (A) 1.1 k/uL (0-1.0); Monocytes % (A) 7 %; Neutrophils # (A) 12.8 k/uL (1.3-7.7); Neutrophils % (A) 82 %; Platelet Count 307 k/uL (150-450); RBC 4.74 m/uL (3.80-5.40); RDW 12.4 % (11.5-15.5); WBC 15.6 k/uL (3.8-10.6)
[2023-08-01 05:51] LABS: Anion Gap 5 mmol/L; Blood Urea Nitrogen 11 mg/dL (7-17); Calcium 9.4 mg/dL (8.4-10.2); Carbon Dioxide 29 mmol/L (22-30); Chloride 103 mmol/L (98-107); Glucose 143 mg/dL (74-99); Potassium 4.3 mmol/L (3.5-5.1); Sodium 137 mmol/L (137-145)
--- NOTE | 2023-08-01 09:25 | CT ---
EXAMINATION TYPE: CT cervical spine wo con CT DLP: 348 mGycm, Automated exposure control for dose reduction was used. DATE OF EXAM: 08/01/2023 6:23 AM COMPARISON: . CLINICAL INDICATION:Female, 58 years old with history of s/p c2-t2 posterior cervical decompr fusion; PHH, post op cervical TECHNIQUE: Axial CT images from the skull base to the inferior aspect of T2 we obtained without intra venous contrast. Coronal and sagittal reformatted images were also reviewed. Contrast used: mL of , (if blank None) Oral contrast used: (if blank None) Cervical spine: Postop changes: ACDF hardware with prosthetic disc interspacers involves C3, C4, C5, C6. Accompanying laminectomies. Multilevel pedicle screws and bilateral posterior fixation rods from C2 to T2, hardwa re appears intact and normally outlined. There is a surgical drain in place at the operative site. Sc attered soft tissue gas and overlying skin frances. There is no pathologic intracanalicular process s uggested by CT. Fracture: None seen. Osseous structures, spinal canal/neural foramina: Spinal canal is unroofed by the laminectomies from C3 through C6. Mild multilevel neural foraminal narrowing. Vertebral alignment: No traumatic malalignment. Neck soft tissues: Postoperative changes in the right neck with soft tissue drain in place.. Other: Lung apices show moderate emphysematous changes and fibronodular scarring. No pneumothorax. Ca lcifications along the aortic arch. IMPRESSION: 1. Multilevel anterior and posterior fusion and laminectomies. 2. No evidence of complication.
--- NOTE | 2023-08-01 09:42 | P.PN ---
Subjective Progress Note Date: 08/01/23 Principal diagnosis: 1. CERVICAL SPONDYLOTIC MYELOPATHY, SEVERE 2. 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 UE AND LE WEAKNESS 5. UE PARESTHESIAS 6. PARAPLEGIA 7. COMPLEX MEDICAL PATIENT Patient was seen at bedside this morning in the ICU lying in the semirecumbent position with dressing present over anterior and posterior cervical spine and hard c-collar in place. Patient says she is having moderate amount of pain to the neck at this time as well as some pain in her hand. Patient says she is looking forward to working with therapy today. Patient says she has not been up out of bed since coming to the hospital. While resting in bed, patient says she has been trying to pump her ankles up and down as well as wiggle her fingers. Patient denies any chest pain, fever, shortness of breath. Objective - Vital Signs Vital signs: Vital Signs Temp 97.8 F 08/01/23 04:00 Pulse 99 08/01/23 07:30 Resp 12 08/01/23 07:30 BP 142/87 08/01/23 07:30 Pulse Ox 97 08/01/23 07:30 FiO2 Intake & Output 07/31/23 08/01/23 08/01/23 18:59 06:59 18:59 Intake Total 1542 220 20 Output Total 2199 2069 75 Balance -658 -1850 -55 Weight 70.5 kg Intake: IV 1542 220 20 Lactated Ringers 1,000 ml 240 220 20 @ 20 mls/hr IV .Q24H [facility] Rx#:[id number] Output: Drainage 20 Anterior Neck 20 Urine 2049 2049 75 Estimated Blood Loss 150 Other: Voiding Method Indwelling Catheter Indwelling Catheter ABP, PAP, CO, CI - Last Documented Arterial Blood Pressure 168/95 - Exam Inspection: Hard cervical collar is in place and dressing is present over anterior and posterior cervical spine. Drain is in place. Some serosanguineous output present. Dressing appears to be clean, dry, intact. Maintain dressing at this time Sensation: diminished in BUE. Equal, symmetric, bilat intact throughout the lower extremities. Palpation: fair amount TTP over the anterior cervical spine near incision. Some generalized tenderness to palpation over the posterior cervical spine and at midline low back. NTTP throughout rest of exam Range of motion: Full range of motion throughout bilateral elbows and wrist in flexion/extension bilaterally. Limited range of motion in bilateral shoulder secondary to weakness and stiffness referred to the back. Limited range of motion in bilateral lower extremities on exam secondary to weakness. Patient is able to wiggle digits in bilateral feet. Motor: 3/5 in all major motor groups BUE. 4-/5 in all major motor groups in BLE Neurovascular: Radial pulse intact, 2+ bilaterally. Cap refill under 3 seconds in digits of upper extremities Special test: Negative Osmani bilaterally. - Labs CBC & Chem 7: 08/01/23 05:00 08/01/23 06:00 Labs: Abnormal Lab Results - Last 24 Hours (Table) 08/01/23 08/01/23 Range/Units 05:00 06:00 WBC 15.6 H (3.8-10.6) k/uL Neutrophils # 12.8 H (1.3-7.7) k/uL Monocytes # 1.1 H (0-1.0) k/uL Creatinine 0.41 L (0.52-1.04) mg/dL Glucose 143 H (74-99) mg/dL Assessment and Plan Assessment: 1. CERVICAL SPONDYLOTIC MYELOPATHY, SEVERE 2. 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 UE AND LE WEAKNESS 5. UE PARESTHESIAS 6. PARAPLEGIA 7. COMPLEX MEDICAL PATIENT -Postop day 2 status post C3 C6 ACDF -Postop day 1 status post posterior cervical C2-T2 decompression and fusion Plan: 1. 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 C2-T2 posterior cervical decompression performed yesterday, 07/31/2023. Patient stable bedside this morning in the ICU. Okay for A-line to be removed. Okay for [place] to be removed. Okay for patient to be transferred to 3 or 4 S. work with therapy. Patient to wear hard c-collar at all times. Pain medication as needed. Maintain drains to full suction at this time. Assess daily. We will continue to follow patient during stay in hospital. 2. Appreciate medical, pulmonology management 3. Pain management -[place]; Lyrica; Flexeril 4. DVT prophylaxis -SCDs and ELMER martin 5. GI prophylaxis -senna 6. PT/OT -encouraged to perform gentle range of motion exercises of extremities while resting in bed; weightbearing as tolerated with walker as needed and when up with therapy 7. Encourage incentive spirometer use 8. discharge planning -pending Time with Patient: Less than 30
--- NOTE | 2023-08-01 11:11 | P.PN ---
Subjective Progress Note Date: 08/01/23 Principal diagnosis: cervical radiculopathy, neck pain patient had a two-step procedure the cervical spine per Dr. Dao, patient was up in chair this morning awake alert vital signs stable patient is afebrile, complains of post operative type pain otherwise completely stable Objective - Vital Signs Vital signs: Vital Signs Temp 98.3 F 08/01/23 08:00 Pulse 113 H 08/01/23 09:00 Resp 22 08/01/23 09:00 BP 149/98 08/01/23 10:00 Pulse Ox 95 08/01/23 09:00 FiO2 Intake & Output 07/31/23 08/01/23 08/01/23 18:59 06:59 18:59 Intake Total 1542 220 110 Output Total 2199 2069 135 Balance -658 -1850 -25 Weight 70.5 kg Intake: IV 1542 220 60 Lactated Ringers 1,000 ml 240 220 60 @ 20 mls/hr IV .Q24H [facility] Rx#:[id number] Intake, IV Titration 50 Amount ceFAZolin 2 gm In Sodium 50 Chloride 0.9% 50 ml @ 100 mls/hr IVPB Q8HR [facility] Rx# :[id number] Output: Drainage 20 Anterior Neck 20 Urine 2049 2049 135 Estimated Blood Loss 150 Other: Voiding Method Indwelling Catheter Indwelling Catheter Indwelling Catheter ABP, PAP, CO, CI - Last Documented Arterial Blood Pressure 170/106 - Exam General: [Patient awake, alert and oriented times 3. Patient in no acute distress. significant postoperative cervical spine pain and stiffness HEENT: [PERRL. EOMI. No pharyngeal erythema or exudate.] Neck: [No adenopathy.] Cardiac: [Heart regular in rate and rhythm. No S3. No S4. No clicks, rubs. No murmur.] Lungs: [Clear to auscultation bilaterally.] Abdomen: [No mass. No organomegaly. Bowel sounds presnt and normoactive in all 4 quadrants.] Extremes: [No edema no cyanosis no claudication normal pulses,initial complaint of bilateral hand numbness and tingling which appears to have resolved : normal female genitalia Musculoskeletal: [No joint erythema, edema or tenderness.] Skin: [No rash.] Neurologic: [No lateralizing deficits. CN II - XII grossly intact.] Lymphatic: [No adenopathy.] - Labs CBC & Chem 7: 08/01/23 05:00 08/01/23 06:00 Labs: Abnormal Lab Results - Last 24 Hours (Table) 08/01/23 08/01/23 Range/Units 05:00 06:00 WBC 15.6 H (3.8-10.6) k/uL Neutrophils # 12.8 H (1.3-7.7) k/uL Monocytes # 1.1 H (0-1.0) k/uL Creatinine 0.41 L (0.52-1.04) mg/dL Glucose 143 H (74-99) mg/dL Assessment and Plan (1) Cervical myelopathy with cervical radiculopathy Current Visit: Yes Status: Acute Code(s): G95.9 - DISEASE OF SPINAL CORD, UNSPECIFIED; M54.12 - RADICULOPATHY, CERVICAL REGION SNOMED Code(s): 173636168 (2) HTN (hypertension) Current Visit: No Status: Acute Code(s): I10 - ESSENTIAL (PRIMARY) HYPERTENSION SNOMED Code(s): 88893121 (3) Tobacco abuse Current Visit: No Status: Acute Code(s): Z72.0 - TOBACCO USE SNOMED Code(s): 098326238 Plan: post op C-spine radiculopathy tobacco use syndrome Essential hypertension Long-term pain management with infusion pump Otherwise doing well Time with Patient: Greater than 30
[2023-08-02] MEDS: PANTOPRAZOLE 40 MG TABLET PO SCH (06:34)
[2023-08-02] MEDS: CYCLOBENZAPRINE 5 MG TAB PO PRN (09:29)
--- NOTE | 2023-08-02 09:29 | P.PN ---
Subjective Progress Note Date: 08/02/23 Principal diagnosis: 1. CERVICAL SPONDYLOTIC MYELOPATHY, SEVERE 2. 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 UE AND LE WEAKNESS 5. UE PARESTHESIAS 6. PARAPLEGIA 7. COMPLEX MEDICAL PATIENT Patient was seen at bedside this morning sitting up at the edge of the bed on 4s. Hard cervical collar is in place with drains and dressings over anterior and posterior cervical spine. Patient says she is having moderate amount of pain to the neck. She says she did get up with therapy yesterday and did okay. Patient says she has not had much solid food since surgery. She says she has not had much of an appetite. Patient says she is looking forward to working with therapy today. Patient did get up with nursing staff while in room and seem to be ambulating okay with nursing at her side.While resting in bed, patient says she has been trying to pump her ankles up and down as well as wiggle her fingers. Patient denies any chest pain, fever, shortness of breath. Objective - Vital Signs Vital signs: Vital Signs Temp 97.9 F 08/02/23 09:13 Pulse 100 08/02/23 09:13 Resp 16 08/02/23 09:13 BP 104/72 08/02/23 09:13 Pulse Ox 94 L 08/02/23 09:13 FiO2 Intake & Output 08/01/23 08/02/23 08/02/23 18:59 06:59 18:59 Intake Total 110 Output Total 760 Balance -650 Weight 71 kg Intake: IV 60 Lactated Ringers 1,000 ml 60 @ 20 mls/hr IV .Q24H [facility] Rx#:[id number] Intake, IV Titration 50 Amount ceFAZolin 2 gm In Sodium 50 Chloride 0.9% 50 ml @ 100 mls/hr IVPB Q8HR [facility] Rx# :[id number] Output: Drainage 0 Anterior Neck 0 Posterior Neck 0 Urine 760 Other: Voiding Method Indwelling Catheter Indwelling Catheter ABP, PAP, CO, CI - Last Documented Arterial Blood Pressure 170/106 - Exam Inspection: Hard cervical collar is in place and dressing is present over anterior and posterior cervical spine. Anterior and posterior cervical drains had very minimal output over the past 24 hours. Drains removed at bedside this morning. Negative for any active drainage from incisions. [place] appear to be well aligned and intact on the posterior cervical spine. Sensation: diminished in BUE. Equal, symmetric, bilat intact throughout the lower extremities. Palpation: fair amount TTP over the anterior cervical spine near incision. Some generalized tenderness to palpation over the posterior cervical spine and at midline low back. NTTP throughout rest of exam Range of motion: Full range of motion throughout bilateral elbows and wrist in flexion/extension bilaterally. Limited range of motion in bilateral shoulder secondary to weakness and stiffness referred to the back. Limited range of motion in bilateral lower extremities on exam secondary to weakness. Patient is able to wiggle digits in bilateral feet. Motor: 3/5 in all major motor groups BUE. 4-/5 in all major motor groups in BLE Neurovascular: Radial pulse intact, 2+ bilaterally. Cap refill under 3 seconds in digits of upper extremities Special test: Negative Osmani bilaterally. - Labs CBC & Chem 7: 08/01/23 05:00 08/01/23 06:00 Assessment and Plan Assessment: 1. CERVICAL SPONDYLOTIC MYELOPATHY, SEVERE 2. 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 UE AND LE WEAKNESS 5. UE PARESTHESIAS 6. PARAPLEGIA 7. COMPLEX MEDICAL PATIENT -Postop day 3 status post C3 C6 ACDF -Postop day 2 status post posterior cervical C2-T2 decompression and fusion Plan: 1. 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 C2-T2 posterior cervical decompression performed 07/31/2023. Patient stable bedside this morning on 4S. work with therapy. Patient to wear hard c-collar at all times. Pain medication as needed. Both drains removed at bedside this morning. New dressings applied. Incision appears to be clean, dry, intact. Assess daily. We will continue to follow patient during stay in hospital. 2. Appreciate medical, pulmonology management 3. Pain management -[place]; Lyrica; Flexeril 4. DVT prophylaxis -SCDs and ELMER hose 5. GI prophylaxis -senna 6. PT/OT -encouraged to perform gentle range of motion exercises of extremities while resting in bed; weightbearing as tolerated with walker as needed and when up with therapy 7. Encourage incentive spirometer use 8. discharge planning -pending Time with Patient: Less than 30
--- NOTE | 2023-08-02 12:06 | P.PN ---
Subjective Progress Note Date: 08/02/23 Principal diagnosis: cervical radiculopathy, neck pain patient had a two-step procedure the cervical spine per Dr. Dao, patient was up in chair this morning awake alert vital signs stable patient is afebrile, complains of post operative type pain otherwise completely stable 08/02/2023 Patient is awake alert oriented 3 vital signs are stable patient is afebrile limited postop pain currently with family numbness and tingling bilateral hands have almost completely resolved Objective - Vital Signs Vital signs: Vital Signs Temp 97.9 F 08/02/23 09:13 Pulse 100 08/02/23 09:13 Resp 16 08/02/23 09:13 BP 104/72 08/02/23 09:13 Pulse Ox 94 L 08/02/23 09:13 FiO2 Intake & Output 08/01/23 08/02/23 08/02/23 18:59 06:59 18:59 Intake Total 110 Output Total 760 900 Balance -650 -900 Weight 71 kg Intake: IV 60 Lactated Ringers 1,000 ml 60 @ 20 mls/hr IV .Q24H [facility] Rx#:[id number] Intake, IV Titration 50 Amount ceFAZolin 2 gm In Sodium 50 Chloride 0.9% 50 ml @ 100 mls/hr IVPB Q8HR [facility] Rx# :[id number] Output: Drainage 0 Anterior Neck 0 Posterior Neck 0 Urine 760 900 Uretheral ([place]) 900 Other: Voiding Method Indwelling Catheter Indwelling Catheter ABP, PAP, CO, CI - Last Documented Arterial Blood Pressure 170/106 - Exam General: [Patient awake, alert and oriented times 3. Patient in no acute distress. significant postoperative cervical spine pain and stiffness HEENT: [PERRL. EOMI. No pharyngeal erythema or exudate.] Neck: [No adenopathy.] Cardiac: [Heart regular in rate and rhythm. No S3. No S4. No clicks, rubs. No murmur.] Lungs: [Clear to auscultation bilaterally.] Abdomen: [No mass. No organomegaly. Bowel sounds presnt and normoactive in all 4 quadrants.] Extremes: [No edema no cyanosis no claudication normal pulses,initial complaint of bilateral hand numbness and tingling which appears to have resolved : normal female genitalia Musculoskeletal: [No joint erythema, edema or tenderness.] Skin: [No rash.] Neurologic: [No lateralizing deficits. CN II - XII grossly intact.] Lymphatic: [No adenopathy.] - Labs CBC & Chem 7: 08/01/23 05:00 08/01/23 06:00 Assessment and Plan (1) Cervical myelopathy with cervical radiculopathy Current Visit: Yes Status: Acute Code(s): G95.9 - DISEASE OF SPINAL CORD, UNSPECIFIED; M54.12 - RADICULOPATHY, CERVICAL REGION SNOMED Code(s): 629878793 (2) HTN (hypertension) Current Visit: No Status: Acute Code(s): I10 - ESSENTIAL (PRIMARY) HYPERTENSION SNOMED Code(s): 76863999 (3) Tobacco abuse Current Visit: No Status: Acute Code(s): Z72.0 - TOBACCO USE SNOMED Code(s): 865543791 Plan: post op C-spine radiculopathy tobacco use syndrome Essential hypertension Long-term pain management with infusion pump postop day #2 Otherwise doing well Time with Patient: Greater than 30
[2023-08-02] MEDS: HEPARIN SODIUM,PORCINE 5,000 UNIT/ML 1 ML VIAL SQ SCH (20:11)
--- NOTE | 2023-08-03 08:21 | P.PN ---
Subjective Progress Note Date: 08/03/23 Principal diagnosis: 1. Severe cervical spondylitic myelopathy 2. Severe bilateral upper and lower extremity weakness 3. C3-C7 spondylosis with stenosis 4. Grade 2 unstable spondylolisthesis C4 on to C5 Patient seen and examined this morning. Patient is sitting up in chair at bedside. Patient reports that her pain is managed on current regimen. Surgical incisions to the anterior and posterior cervical spine, dressings are clean dry and intact. Hard cervical collar is in place. Patient does report some improv ement in her radiculopathy into the bilateral upper extremities. Prescription has been placed in chart for a rolling walker. Patient states that she feels comfortable going home today. bar staff states that patient is utilizing IV Dilaudid throughout the night. Will reevaluate patient at lunchtime regarding pain control without IV medication for possible discharge. Continue to encourage patient to work with physical therapy today. Objective - Vital Signs Vital signs: Vital Signs Temp 98.7 F 08/03/23 00:39 Pulse 95 08/03/23 00:39 Resp 14 08/03/23 00:39 BP 91/70 08/03/23 00:39 Pulse Ox 96 08/03/23 00:39 FiO2 Intake & Output 08/02/23 08/03/23 08/03/23 18:59 06:59 18:59 Output Total 900 Balance -900 Weight 71 kg Output: Urine 900 Uretheral ([place]) 900 Other: # Voids 2 1 # Bowel Movements 1 ABP, PAP, CO, CI - Last Documented Arterial Blood Pressure 170/106 - Exam Physical Examination General: The patient is awake and alert, in no acute distress Skin: Skin is warm and dry with no obvious rashes or lesions. Surgical incisions to the anterior and posterior cervical spine, dressings are clean dry and intact. Eye: Pupils are equal, round and reactive to light, extra-ocular movements are intact; there is normal conjunctiva bilaterally. Neck: The neck is supple, there mild tenderness around incision sites, limited range of motion due to pain and stiffness from surgical procedure and hard cervical collar being present. Cardiovascular: There is a regular rate and rhythm. No murmur, rub or gallop is appreciated. Respiratory: Respirations are non-labored, breath sounds are equal. Gastrointestinal: Soft, non-distended, non-tender abdomen. Back: There is no tenderness to palpation in the midline, paralumbar, parathoracic or buttocks region. There is no obvious deformity . Musculoskeletal: 3/5 in all major motor groups BUE. 4-/5 in all major motor groups in BLE Neurological: CN 2-12 intact. There are no obvious motor or sensory deficits. Movement and coordination equal and intact. Sensory exam to light touch intact C5-T1 and intact from L2-S1. Reflexes 2/4 in bilateral upper and lower extremities. Negative Hoffmans, babinski, and clonus signs. Psychiatric: Cooperative, appropriate mood & affect, normal judgment. - Labs CBC & Chem 7: 08/01/23 05:00 08/01/23 06:00 Assessment and Plan Assessment: Postop day 4: Stage I C3-C6 ACDF, postop day 5: Stage II C2-T2 posterior decompression and fusion 1. Severe cervical spondylitic myelopathy 2. Severe bilateral upper and lower extremity weakness 3. C3-C7 spondylosis with stenosis 4. Grade 2 unstable spondylolisthesis C4 on to C5 Plan: -Appreciate loss control consultant and team management. -Activity: Ambulate QID, OOB all meals, up and about, limit lifting bending twisting to less than 5 lbs. Use walker or cane if needed for stability. -Daily PT/OT, increase ambulation strength and balance. -Hard cervical collar on at all times, may be removed for showers. -Prescription for rolling walker has been placed in chart. -Pain control: Adequate at this time -Meds: reviewed -GI ppx: senna, Miralax -DVT PPX: Heparin -Hygiene:Maintain dressing clean and dry. -Encourage IS 10x/hr -Dispo: Anticipate discharge home with homecare later today versus tomorrow. *I reviewed and discussed this case with my attending Dr. Dao, whom has reviewed this chart and films and is in agreement with assessment and plan of care as outlined above. I have personally seen and examined the patient, performed the documentation and the assessment and plan as written. Number of minutes spent on the visit: 20m.
--- NOTE | 2023-08-03 13:10 | P.DS ---
Providers Date of admission: 07/29/23 15:10 Expected date of discharge: 08/03/23 Attending physician: Kit Dao DO Consults: 07/29/23 19:13 Consult Physician Routine Consulting Provider: Mario Kunz Jr Consult Reason/Comments: Medical Management Do you want consulting provider notified?: Yes Primary care physician: [facility] Course: Hospital Course: The patient was evaluated preoperatively and found to have the diagnosis of Cervical myelopathy They underwent appropriate preoperative care and were willing to undergo the intended procedure. They underwent a successful stage I C3-C6 ACDF, stage II C2-T2 posterior decompression and fusion, were recovered appropriately and sent to the floor. While on the floor they worked with physical therapy, occupational therapy and nursing to enhance their recovery experience. Their pain was well controlled through their stay and they were started on appropriate medications, DVT ppx modalities, activity and dietary needs. Daily labs were monitored closely, and transfusions were only used when necessary. Medicine as well as other consulting services have made their input and have helped with our team approach and multidisciplinary care. PT milestones have been met and passed and they have made the recommendation of Home with home care for this patient and treating providers agree with this care path. The patient will be discharged home with appropriate medications, instructions and follow-up information and in stable condition. Patient Condition at Discharge: Fair Plan - Discharge Summary Discharge Rx Participant: No New Discharge Prescriptions: New cefaDROXiL [Duricef] 500 mg PO Q12HR #10 cap Cyclobenzaprine [Flexeril] 5 mg PO TID PRN #40 tablet PRN Reason: Muscle Spasm HYDROcodone/APAP 10-325MG [[place] 10-325] 1 tab PO Q4-6H PRN #42 tab PRN Reason: Pain Sennosides/Docusate Sodium [Senna Plus 8.6-50 mg Tablet] 1 each PO DAILY PRN #20 tablet PRN Reason: Constipation No Action ALPRAZolam [Xanax] 0.5 mg PO Q8H PRN PRN Reason: Anxiety DULoxetine HCL [Cymbalta] 90 mg PO DAILY Celecoxib [CeleBREX] 100 mg PO PC-LUNCH Patient Own Pump 0 bag oxyCODONE HCL/ACETAMINOPHEN [Percocet 10-325 mg] 1 tab PO Q6H PRN MDD 3 tabs PRN Reason: Pain Naloxone HCl 0.4 mg NASAL ONCE PRN PRN Reason: overdose Pregabalin [Lyrica] 300 mg PO BID Discharge Medication List ALPRAZolam [Xanax] 0.5 mg PO Q8H PRN 04/26/19 [History] DULoxetine HCL [Cymbalta] 90 mg PO DAILY 07/12/19 [History] Celecoxib [CeleBREX] 100 mg PO PC-LUNCH 12/16/22 [History] Naloxone HCl 0.4 mg NASAL ONCE PRN 07/29/23 [History] Patient Own Pump 0 bag 07/29/23 [History] Pregabalin [Lyrica] 300 mg PO BID 07/29/23 [History] oxyCODONE HCL/ACETAMINOPHEN [Percocet 10-325 mg] 1 tab PO Q6H PRN MDD 3 tabs 07/29/23 [History] Cyclobenzaprine [Flexeril] 5 mg PO TID PRN #40 tablet 08/03/23 [Rx] HYDROcodone/APAP 10-325MG [[place] 10-325] 1 tab PO Q4-6H PRN #42 tab 08/03/23 [Rx] Sennosides/Docusate Sodium [Senna Plus 8.6-50 mg Tablet] 1 each PO DAILY PRN #20 tablet 08/03/23 [Rx] cefaDROXiL [Duricef] 500 mg PO Q12HR #10 cap 08/03/23 [Rx] Follow up Appointment(s)/Referral(s): Mario Kunz Jr, DO [Primary Care Provider] - 1-2 days Kit Dao DO [Doctor of Osteopathic Medicine] - 1 Week Activity/Diet/Wound Care/Special Instructions: Spine Discharge and Recovery Instructions Date of Surgery: 07/30/2023, 07/31/2023 Diagnosis: Severe cervical spondylosis with stenosis, cervical myelomalacia Procedure: Stage I: C3-C6 ACDF, stage II: C2-T2 posterior decompression and fusion Medications: See medication list All medication refills should be obtained through your primary care doctor or your clinic spine surgeon. Please discuss prescription refills at your follow up appointment. Do not call the hospital for medication refills. Activity: Encourage ambulation with assist of walker, Up and about 6-8x daily PT/OT daily work on balance, strength and mobility Up in chair with all meals Shower daily Brace: Use brace when up and about, do not wear in bed or shower Dressing: Leave your dressing in place for a total of 3 days post operatively. Then you may remove your dressing and leave open to air. Keep the area clean and if not able to keep area clean, then cover with sterile gauze and tape. Showering: You may shower 3 days after your procedure allowing soap and water to run over incision. Do not scrub. Do not soak. Blot dry. Follow up: Please confirm a follow up appointment with your surgeon 2 weeks post operatively. Please make an appointment to follow up with your PCP in 1-2 weeks after surgery for evaluation `3 phase, 3-week plan POST OP WEEKS 1-3 1. Lifting/carrying/pushing/pulling limited to less than 5 pounds. 2. Do not sit for longer than 15 minutes at one time. Get up and walk around. Prolonged sitting is NOT advised. If you lay down, see if you can tolerate laying down on you front (belly side) 3. Walk for periods of 15 minutes = 1 mile but no longer; do it multiple times times each day. 4. Ice your low back after activity. POST OP WEEKS 3-6 1. Lifting limited to less than 20 pounds. 2. Do not sit for longer than 30 minutes at a time. Frequently change positions. Use a sit-to stand workstation or take frequent breaks from sitting if you have returned to work. 3. Walk for 30 minutes each day. If possible, do these three or more times a day POST OP WEEKS 6+ At your 6-week appointment we will give you a physical therapy referral to focus on a core stabilization and strengthening program. You should also work on leg & buttock strengthening, hamstring & quadriceps stretching, and continue a low impact aerobic activity program such as swimming, walking, or riding a stationary bicycle. During the initial 6 weeks after your surgery, you are at the highest risk of re-injuring your spine. You should generally avoid BLTs (bending, lifting and twisting combination motions) and follow the above guidelines to reduce the chance of reinjury. You can anticipate post op appointments in our office at approximately 3 weeks and 6 weeks after your surgery. INCISION CARE: If your incision is not draining you do NOT need to cover it with a dressing. Keep your incision clean, dry and intact. In most cases, we apply skin glue, frances or sutures to the incision at the time of surgery. This will be like a crust or have the appearance of a scab and will fall off in time on its own. The stitches or frances need to be removed at 3 weeks post op appointment. You may begin to shower 3 days after surgery (this allows the glue to marks well). However, please avoid scrubbing the incision site or peeling off any of the skin glue. This will ensure optimal healing of your incision. Also, during this time avoid soaking the incision area in water - this includes swimming pools, hot tubs or baths. No ointments, lotions or oils on the incision until your surgeon allows. Leave frances, sutures or glue in place. Neurological dysfunction that comes on suddenly can also be a sign of a stroke. Below some common symptoms of a stroke are listed: B - balance difficulty such as sudden onset walking or leaning to one side - NEW E - eye problem such as sudden double vision or trouble seeing on one side - NEW F - Facial weakness or numbness on one side - NEW A - Arm or leg weakness or numbness on one side - NEW S - Slurred speech or difficulty with word finding - NEW T - Time is BRAIN! Call 911 as soon as you recognize these symptoms Diet: Consume a regular diet rich in vegetables and lean protein such as chicken or fish. You should consume in a ratio of approximately 20% fats|40% carbohydrates|40%protein. Vegetables, sweet potatoes, brown rice or quinoa are examples of good carbohydrates. Chips, white bread, cookies and sweets/sugar are examples of bad carbohydrates. Limit your bad carbs, go wild with good carbs. "Life's Simple 7" Guidelines as per [place] [employer] These will help you reclaim your life after surgery and truck driver helper in your recovery, keeping in mind your restrictions. (1) Get Active. Physical activity can help people lose weight, control high blood pressure and cholesterol, feel emotionally better, and sleep better. (2) Control Cholesterol. Avoid a diet high in saturated fat, trans fat, & cholesterol. Limit whole milk & cream, ice cream, butter, egg yolks, processed meats (like sausage and hot dogs), and fatty meats. Choose healthy foods that are low in saturated fat, trans fat and cholesterol which include: Fruits and vegetables, fiber rich grain products (like whole grain pasta and brown rice), lean meat such as chicken, fish, nuts, seeds, and legumes. (3) Eat Better. Eat small portions. Shop at the grocery with a list and do not stray from it. Tips for a healthy diet include: Limit sodium intake to less than 1500mg daily, avoid prepackaged, processed, and fast foods, choose a diet rich in fruits, vegetables, and whole grain, high fiber foods, and limit saturated & cholesterol in your diet. (4) Manage Blood Pressure. If you have high blood pressure, you should have a cuff at home so that you can check your blood pressure regularly. Be sure you have a good cuff. An arm one is generally better than a wrist one. Bring the cuff to a doctor's appointment to validate that the measurements that your cuff are taking are accurate. Take your blood pressure twice daily when you are sitting down and relaxing. Record the numbers in a log and bring this log with you to your doctors' appointments. (5) Lose Weight if your BMI is above 25. A healthy BMI is between 19-25. To calculate Your BMI, you may use a Standard BMI Calculator on the NIH BMI website: <www.nhlbi.nih.gov/guidelines/obesity/BMI/bmicalc.htm>. Weigh oneself daily. If you are overweight, set a goal to lose weight. A pound a week loss if needed is a good target. (6) Reduce Blood Sugar. Limit foods and liquids with "added sugars." (Added sugars include sucrose, fructose, glucose, maltose, dextrose, high fructose corn syrup, corn syrup, concentrated fruit juice and honey). (7) Stop Smoking. If you smoke, quitting smoking is one of the best things that you can do for your health. Smoking increases your risk of heart attack, stroke, and peripheral vascular disease, which is a build-up of plaque in your arteries. Please discard all the cigarettes and lighters in your house. Have a plan for what you will do when you have the urge to smoke. Direct and second- hand smoke shortens your life as well as the lives of your family, friends and others around you. For your health and the health of those around you, please consider quitting! Proper Bending Body Mechanics: Maintain a wide stance with one foot slightly in front of the other. Keep your back straight. Bend utilizing the strength in your hips and knees. Do not bend at the waist. Maintain the lifted object at your waist-level close to your body. Avoid lifting weight that causes immediately pain or pain anywhere in the body afterwards. Smoking/Nicotine If there was ever one thing that you could do to increase your overall health, decrease your risk of cardiovascular problems by about 39% the second you make the choice, it is to STOP SMOKING. Your body's most instant gratification is the second you stop smoking. We have all heard the studies, read the articles but it is true, smoking is extremely bad for your overall health, and moreover it is detrimental to your bone health. Nicotine, IN ANY FORM, kills bone cells, prevents your body from healing fractures, and significantly prolongs healing after surgery. In spine surgery specifically, it increases your risk of not healing your bones to create a fusion and increases your risk of having a revision surgery due to this up to 60%. I know it is hard. I know it feels impossible. But there are ways. Take control of your life. We are here to help you through it. And when you are ready, ask us and we can direct you to help if you desire. Use the START Plan to Quit Smoking (please visit the Helpguide.org website listed below for more information): S = Set a quit date. Choose a date within the next 2 weeks, so you have enough time to prepare without losing your motivation to quit. If you mainly smoke at work, quit on the weekend, so you have a few days to adjust to the change. T = Tell family, friends, and co-workers that you plan to quit. Let your friends and family in on your plan to quit smoking and tell them you need their support and encouragement to stop. Look for a quit amada who wants to stop smoking as well. You can help each other get through the rough times. A = Anticipate and plan for the challenges you'll face while quitting. Most people who begin smoking again do so within the first 3 months. You can help yourself make it through by preparing ahead for common challenges, such as nicotine withdrawal and cigarette cravings. R = Remove cigarettes and other tobacco products from your home, car, and work. Throw away all your cigarettes (no emergency pack!), lighters, ashtrays, and matches. Wash your clothes and freshen up anything that smells like smoke. Shampoo your car, clean your drapes and carpet, and steam your furniture. T = Talk to your doctor about getting help to quit. Your doctor can prescribe medication to help with withdrawal and suggest other alternatives. If you can't see a doctor, you can get many products over the counter at your local pharmacy or grocery store, including the nicotine patch, nicotine lozenges, and nicotine gum. Resources for Quitting Smoking: <https://www.[place].gov/documents/[facility]/Quit_Tobacco_Resources_for_ patients_313480_7.pdf> Supplementation: Take recommended dosages of Vitamin D and Calcium to help fortify your bones and help them to heal. See your health maintenance packet for dosages and r ecommended levels. DVT/VTE prophylaxis: You will be given compression stockings from the hospital. Wear these daily for the first two weeks after surgery. You may take them off at night. You may be prescribed a medication to help thin your blood. Take this as directed. If you are not prescribed this medication, early and frequent ambulation has been shown to be the best prophylaxis to deep vein thrombosis and sequelae related to this event. Discharge Disposition: HOME WITH HOME HEALTH SERVICES
--- NOTE | 2023-08-03 14:18 | P.PN ---
Subjective Patient evaluated today on the floor. She underwent stage I C3-C6 ACDF, stage II C2-T2 posterior decompression and fusion, and is recovering nicely. She indicates she is eating. She denies any chest pains pressure shortness of breath. Vital signs remained stable, she has leukocytosis close is most likely reactive. Objective - Vital Signs Vital signs: Vital Signs Temp 98.2 F 08/03/23 07:22 Pulse 98 08/03/23 07:22 Resp 17 08/03/23 08:00 BP 91/64 08/03/23 07:22 Pulse Ox 95 08/03/23 07:22 FiO2 Intake & Output 08/02/23 08/03/23 08/03/23 18:59 06:59 18:59 Output Total 900 Balance -900 Weight 71 kg Output: Urine 900 Uretheral ([place]) 900 Other: # Voids 2 1 # Bowel Movements 1 ABP, PAP, CO, CI - Last Documented Arterial Blood Pressure 170/106 - Exam GENERAL: Fatigued female. NECK: Rigid c-collar in place. LUNGS: Breath sounds clear to auscultation bilaterally and equal. No wheezes rales or rhonchi. HEART: Regular rate and rhythm without murmurs, rubs or gallops.S1S2 Normal ABDOMEN: Soft, nontender, normoactive bowel sounds. No guarding, no rebound. No masses appreciated. EXTREMITIES: Normal range of motion, no pitting or edema. No clubbing or cyano sis. NEUROLOGICAL: Cranial nerves II through XII grossly intact. Normal speech, normal gait. PSYCH: Normal mood, normal affect. SKIN: Warm, Dry, normal turgor, no rashes or lesions noted. - Labs CBC & Chem 7: 08/01/23 05:00 08/01/23 06:00 Assessment and Plan (1) Cervical myelopathy with cervical radiculopathy Current Visit: Yes Status: Acute Code(s): G95.9 - DISEASE OF SPINAL CORD, UNSPECIFIED; M54.12 - RADICULOPATHY, CERVICAL REGION SNOMED Code(s): 407246684 (2) HTN (hypertension) Current Visit: No Status: Acute Code(s): I10 - ESSENTIAL (PRIMARY) HYPERTENSION SNOMED Code(s): 21504346 (3) Tobacco abuse Current Visit: No Status: Acute Code(s): Z72.0 - TOBACCO USE SNOMED Code(s): 676748104 Plan: Medically this patient remained stable and can be discharged once her pain is controlled and she is okayed by surgery.
[2023-08-03] MEDS: HYDROcodone/APAP 10-325MG 1 EACH TAB PO PRN (14:37)
--- NOTE | 2023-08-04 07:14 | P.PN ---
Progress Note - Text Progress Note Date: 08/04/23 Patient seen this morning. Patient was unable to discharge yesterday due to increase of pain. Medications have been adjusted and trialed with improvement of pain management. Prescriptions have been sent to pharmacy. Reviewed discharge instructions, patient verbalizes understanding. Patient to follow-up with Dr. Dao in 10 days.
[2023-08-04 08:46] VITALS: BP 95/72; PULSE 102; TEMP 97.8
[2023-08-04 09:43] VITALS: RESP 18
== END 2023-08-04 09:43 | disposition home health service (06) | DRG 454 ==
LOC: EC 13:54 → 4SSUR 15:10 → 2SICU 07-30 20:17 → 4SSUR 08-01 17:47
PROVIDERS: ADMIT Orthopaedic Surgery; ATTEND Orthopaedic Surgery
PROC: 0RT30ZZ Resection of Cervical Vertebral Disc, Open Approach (ICD-10-PCS; 2023-07-30)
PROC: 0RG20A0 Fusion of 2 or more Cervical Vertebral Joints with Interbody Fusion Device, Anterior Approach, Anterior Column, Open Approach (ICD-10-PCS; principal; 2023-07-30 10:05)
PROC: 0RG2071 Fusion of 2 or more Cervical Vertebral Joints with Autologous Tissue Substitute, Posterior Approach, Posterior Column, Open Approach (ICD-10-PCS; 2023-07-31)
PROC: 01N10ZZ Release Cervical Nerve, Open Approach (ICD-10-PCS; 2023-07-31)
PROC: 01N80ZZ Release Thoracic Nerve, Open Approach (ICD-10-PCS; 2023-07-31)
PROC: 00NW0ZZ Release Cervical Spinal Cord, Open Approach (ICD-10-PCS; 2023-07-31)
PROC: 00NX0ZZ Release Thoracic Spinal Cord, Open Approach (ICD-10-PCS; 2023-07-31)
PROC: 0RG20AJ Fusion of 2 or more Cervical Vertebral Joints with Interbody Fusion Device, Posterior Approach, Anterior Column, Open Approach (ICD-10-PCS; 2023-07-31)
PROC: 0RG40AJ Fusion of Cervicothoracic Vertebral Joint with Interbody Fusion Device, Posterior Approach, Anterior Column, Open Approach (ICD-10-PCS; 2023-07-31)
PROC: 0RG4071 Fusion of Cervicothoracic Vertebral Joint with Autologous Tissue Substitute, Posterior Approach, Posterior Column, Open Approach (ICD-10-PCS; 2023-07-31)
DX: M47.12 Other spondylosis with myelopathy, cervical region (principal); G82.20 Paraplegia, unspecified; G95.89 Other specified diseases of spinal cord; M48.52XA Collapsed vertebra, not elsewhere classified, cervical region, initial encounter for fracture; M50.01 Cervical disc disorder with myelopathy, high cervical region; E66.9 Obesity, unspecified; M43.12 Spondylolisthesis, cervical region; G89.29 Other chronic pain; R25.1 Tremor, unspecified; M50.11 Cervical disc disorder with radiculopathy, high cervical region; R13.10 Dysphagia, unspecified; G62.9 Polyneuropathy, unspecified; F17.210 Nicotine dependence, cigarettes, uncomplicated; M25.78 Osteophyte, vertebrae; R15.9 Full incontinence of feces; M47.22 Other spondylosis with radiculopathy, cervical region; M48.02 Spinal stenosis, cervical region; Z97.8 Presence of other specified devices; Z79.899 Other long term (current) drug therapy; Z79.1 Long term (current) use of non-steroidal anti-inflammatories (NSAID); Z91.041 Radiographic dye allergy status; Z98.1 Arthrodesis status; Z68.29 Body mass index [BMI] 29.0-29.9, adult
CPT/HCPCS: 36415; 71045; 72040; 72125; 80048; 80053; 85025; 85610; 85730; 86850; 86900; 86901; 93005; 96374; 96375; 99285

== ENCOUNTER → 2023-08-18 | Day surgery (SDC) | payer MEDICARE ==
[2023-08-18 10:02] VITALS: BP 137/76; PULSE 114; RESP 16; TEMP 98
--- NOTE | 2023-08-18 10:29 | P.PCN ---
Date of Procedure: 08/18/23 Anesthesia: none Surgeon: Vernon Torres Pathology: none sent Condition: stable Disposition: no change Description of Procedure: OPERATION: Intrathecal pain pump analysis, programming and reprogramming, and intrathecal pain pump refill. PREOPERATIVE DIAGNOSES: 1. near empty intrathecal pain pump time for refill. 2. 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 ANESTHESIA: None. CONDITION: Stable. Description of the procedure; Intrathecal pain pump analysed ,it showed patient currently had reservoir volume[ ] mL. The patient is receiving medication Dilaudid 4 mg/ ml, and bupivacaine concentration 2 mg/ml,Baclofen 30mcg/ml Patient receiving daily dose of Dilaudid 1.2603 mg/day and bupivacaine 0.6302 mg/day, Baclofen 9.452mcg/day. Pain is well controlled , patient using medication for breakthrough pain orally . The location of the pump ( Left Buttuck ) Prepped with chlorhexidine x3 , then using 22-gauge needle Jack Erwin kit advanced through the pump port, Total of 14.7 ml removed from the pump, expected volume 13.7 ml , the pump refilled with the new medication total volume 40 ml . The concentration of Dilaudid4 mg /ml , and the bupivacaine concentration [2 ] mg/ml,Baclofen 30mcg/ml The patient will continue to see the daily dose Dilaudid [1.2603 ] mg/day and bupivacaine [0.6302 ] mg/day, Baclofen 9.45 mcg/day and patient will follow up with the pain clinic in 3 months.
== END ==
LOC: ORPAIN 09:42
PROVIDERS: ATTEND Anesthesiology
DX: Z51.81 Encounter for therapeutic drug level monitoring (principal)
CPT/HCPCS: 62370; J1170; J0475

== ENCOUNTER → 2023-09-18 | Outpatient (CLI) | payer MEDICARE ==
[2023-09-18 12:19] LABS: Appearance,Urine Clear (Clear); Bilirubin,Urine Negative (Negative); Blood,Urine Negative (Negative); Color,Urine Colorless; Glucose,Urine (UA) Negative (Negative); Ketones,Urine Negative (Negative); Leukocyte Esterase,Urine Moderate (Negative); Mucus,Urine Rare /hpf; Nitrite,Urine Negative (Negative); PH, Urine 5.5 (5.0-8.0); Protein,Urine Negative (Negative); RBC,Urine 2 /hpf (0-5); Specific Gravity,Urine 1.011 (1.001-1.035); Squamous Epithelial Cell,Urine 1 /hpf (0-4); Urobilinogen,Urine <2.0 mg/dL (<2.0); WBC,Urine 2 /hpf (0-5)
[2023-09-18 12:26] LABS: INR 0.8 (<1.2); Partial Thromboplastin Time 27.6 sec (22.0-30.0); Prothrombin Time 9.6 sec (10.0-12.5)
[2023-09-18 15:43] LABS: ALT 11 U/L (8-44); AST 22 U/L (13-35); Albumin/Globulin Ratio 1.74 Ratio (1.60-3.17); Alkaline Phosphatase 122 U/L (41-126); Blood Urea Nitrogen 11.7 mg/dL (9.0-27.0); Calcium 9.5 mg/dL (8.7-10.3); Carbon Dioxide 25.7 mmol/L (21.6-31.8); Chloride 103 mmol/L (96-109); Globulin 2.3 g/dL (1.6-3.3); Glucose 79 mg/dL (70-110); Potassium 4.9 mmol/L (3.5-5.5); Sodium 138 mmol/L (135-145); Total Bilirubin 0.3 mg/dL (0.3-1.2); Total Protein 6.3 g/dL (6.2-8.2)
[2023-09-18 16:35] LABS: Basophils # (A) 0.06 X 10*3/uL (0.00-0.10); Basophils % (A) 0.8 %; Eosinophils % (A) 1.3 %; HCT 37.2 % (37.2-46.3); HGB 12.2 g/dL (12.0-15.0); Lymphocytes # (A) 3.63 X 10*3/uL (0.90-5.00); Lymphocytes % (A) 48.2 %; MCH 30.3 pg (27.0-32.0); MCHC 32.8 g/dL (32.0-37.0); MCV 92.5 FL (80.0-97.0); Mean Platelet Volume 9.6 FL (9.5-12.2); Monocytes # (A) 0.62 X 10*3/uL (0.20-1.00); Monocytes % (A) 8.2 %; NRBC Per 100 WBC 0 X 10*3/uL (0.00-0.01); Neutrophils % (A) 41.2 %; Platelet Count 287 X 10*3/uL (140-440); RBC 4.02 X 10*6/uL (4.10-5.20); RDW 12.7 % (11.5-14.5); WBC 7.53 X 10*3/uL (4.50-10.00)
--- NOTE | 2023-09-24 11:39 | XR ---
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 Heart normal size. Aorta and pulmon berhane vasculature within normal limits. Hyperinflation and mild interstitial density is unchanged. No c onsolidation or pleural effusion. Lateral view would partially visualized posterior lumbar fusion zoe johana. IMPRESSION: COPD and chronic appearing changes. No definite acute process.
== END | disposition home or self-care (01) ==
LOC: RADXRMAIN 10:17
PROVIDERS: ATTEND Neurological Surgery
DX: M96.1 Postlaminectomy syndrome, not elsewhere classified (principal); J44.9 Chronic obstructive pulmonary disease, unspecified
CPT/HCPCS: 71046; 80053; 81001; 83036; 85025; 85610; 85730; 87070

== ENCOUNTER → 2023-11-09 | Outpatient (CLI) | payer MEDICARE ==
[2023-11-09 14:14] VITALS: BP 178/74; PULSE 51; RESP 16; TEMP 97.3
--- NOTE | 2023-11-12 07:56 | P.PAINPG ---
PQRS Measure Charge Sheet Comment: A 58 yr old female with a history of severe and chronic LBP secondary to radiculopathy, spondylosis and facet arthropathy without myelopathy presents today for medication refills. Pain level is provoked at 6 /10 in intensity, constant, predominantly axial, localized in the lumbar spine, sharp in character without shooting pain. Pain is provoked by over activity. Pain is alleviated with medication s (Percocet 10/325mg #90, Pain Pump Implant), topical Aspercreme, HEP stretches daily since 2020, repositioning and rest. Interventional pain procedures completed include Pain Pump Implant Patient is currently on Percocet 10/325mg #90 Patient denies any side effects of the medication(s), denies excessive drowsiness or sleepiness, denies suicidal ideation and reports that the current pain medication is helping to control the pain and improve activities of daily living. Patient denies any motor or sensory deficits. Patient denies any fever or night sweats, denies any change in the bowel movements or urination. Physical Examination: -Constitutional: Cooperative. Not in acute distress . - Neurologic: Cranial nerve II to XII intact. No focal neurological deficits. - Psychatric: Alert & oriented x 3. Matching mood & appropriate affect. Judgment and insight intact. - Musculoskeletal: Cervical spine: Muscle bulk/ tone/ strength in the bilateral upper extremities normal Vertebral body tenderness to palpation over Spurling test positive Distraction test positive Facet loading test positive TTP Thoracic spine Muscle bulk / tone/ strength in the bilateral paraspinal muscles normal Vertebral body tender to palpation over Facet loading test positive TTP Lumbar spine: Motor bulk/ tone/ strength lower extremities , thigh and legs : 5/5 Deep tendon reflexes : Normal Knee Jerk. Normal Ankle Jerk . Vertebral body tenderness to palpation over Muñoz Test positive Lumbar Facet Loading Test positive Straight Leg Raise: positive at 30 degrees right side/ left side Gaenslen's Test positive Sacral spine : Severe tenderness over the Sacroiliac joint: right side / left side Range of motion: Flexion of the lumbar spine <60 degrees Range of motion: Extension of the lumbar spine <20 degrees Gaenslen's Test positive right side / left side Livan test: positive right side / left side Thigh Thrust Test positive right side / left side Sacral Thrust Test positive right side / left side Assessment and plan: Chronic LBP secondary to radiculopathy, spondylosis with facet arthropathy without myelopathy Chronic and current use of high-risk medication (Opioids). The patient was counseled about risk of opioid use, psychological risk associated with opioids and was orally counseled to not overuse , divert or sell medications. Pt is to store medication in a safe location. The patient is counseled against driving while using narcotic medications and also not to use alcohol or any illicit recreational drugs. Patient verbalized understanding that the lack of compliance will result in failure to renew narcotic prescription(s) as well as possible discharge from the clinic Diagnoses, prognosis and treatment options including but not limited to physical therapy, surgical interventions, interventional therapies and medication management including narcotics and adjuvant medication were discussed. All patient questions answered . Narcotic/ Opiate agreement signed 11/09/23. UDS collected 11/09/23. MAPS reviewed and it was appropriate. Prescription refill for Percocet 10/325mg #90 w 2 RF. I have spent less than 30 minutes on patient care today. Dr Walker was available by phone for the evaluation of this patient. The time was used to review the medical records including relevant urine studies and Prescription history (MAPs), review of the available imaging, evaluation and examination of the patient, coordination of care with the medical staff and if applicable referring physicians, as well as creation of the medical record PQRS Narrative: Smoking Status Current every day smoker Narcotic Agreement Date Signed 11/28/20 Hx Alcohol Use (MH) Yes Home Medications: Ambulatory Orders ALPRAZolam [Xanax] 0.5 mg PO Q8H PRN 04/26/19 DULoxetine HCL [Cymbalta] 90 mg PO QAM 07/12/19 Celecoxib [CeleBREX] 100 mg PO PC-LUNCH 12/16/22 Naloxone HCl 0.4 mg NASAL ONCE PRN 07/29/23 Pregabalin [Lyrica] 300 mg PO BID 07/29/23 Cyclobenzaprine [Flexeril] 5 mg PO TID PRN #40 tablet 08/03/23 Sennosides/Docusate Sodium [Senna Plus 8.6-50 mg Tablet] 1 each PO DAILY PRN #20 tablet 08/03/23 Ondansetron Odt [Zofran Odt] 4 mg PO Q8HR PRN #20 tab 08/04/23 oxyCODONE-APAP 10-325MG [Percocet 10-325 mg] 1 tab PO TID PRN 30 Days #90 tab 11/09/23 Pain Pump 11/11/23 Controlled Substance Measures - Controlled Substance Measures Is patient prescribed a controlled substance at discharge?: Yes When asked, does pt state using other controlled substances?: Yes If prescribed controlled substance>3 days was MAPS reviewed?: Yes
== END ==
LOC: PNWHC3 13:06
PROVIDERS: ATTEND Specialist
DX: M51.36 Other intervertebral disc degeneration, lumbar region
CPT/HCPCS: 99212

== ENCOUNTER → 2023-11-12 | Day surgery (SDC) | payer MEDICARE ==
[2023-11-11 08:49] VITALS: BMI 29.2
[~2023-11-12] MED LIST changes: -LACTATED RINGERS 1,000 ML IV SCH
[2023-11-12 13:31] VITALS: BP 140/79; PULSE 84; RESP 18; TEMP 97
--- NOTE | 2023-11-12 14:31 | P.PCN ---
Date of Procedure: 11/12/23 Procedure(s) Performed: PROCEDURE: Intrathecal pain pump analysis, programming and reprogramming, and intrathecal pain pump refill PREOPERATIVE DIAGNOSES: 1. near empty intrathecal pain pump time for refill. 2. opioid tolerance 3. failed back surgery syndrome, lumbar area POSTOPERATIVE DIAGNOSES: 1. near empty intrathecal pain pump time for refill. 2. opioid tolerance 3. failed back surgery syndrome, lumbar area ANESTHESIA: None. CONDITION: Stable. INDICATION: This is 58 -year-old patient with a long history of chronic pain secondary to PLPS and with a long history of opioid tolerance. Patient previously had an intrathecal pump placed, which is now time for pump refile , and patient presents for refill today. Patient denies any side effects of the intrathecal medication, including new weakness, new numbness, excessive drowsiness or sleepiness, nausea/vomiting, weight gain, or night sweats. Patient also denies suicidal ideation, and reports that the current pain medication is helping control the chronic pain and improve the patient's activities of daily living. She'll complaining of increased pain with activity and especially during the summertime she try to be active and this will increase her pain and currently she reported that activity exacerbates her pain and she is asking if we can increase the daily dose of intrathecal pain medication, she reported that her pain level fluctuates between 6/10 to 8/10 DESCRIPTION: The intrathecal pain pump was analyzed and showed that the patient currently has reservoir volume of [9.8 ] mL. volume removed 9.5 mL The patient is receiving intrathecal Dilaudid PF at concentration [ 4 ] mcg/ ml, and bupivacaine PF at concentration [2 ] mg/ml, and baclofen [30] mcg/ml. Patient receiving daily dose of Dilaudid [ 1.26 ] mcg/day, bupivacaine [ 0.63 ] mg/day, and baclofen [ 9.4 ] mcg/day. The location of the pump (left buttock) was prepped with chlorhexidine x3, then 22-gauge needle from the [employer] kit was advanced through the pump port. Total of 9.5 ml was removed from the pump, and it was refilled with the new medication total volume of [40] ml of a solution containing intrathecal Dilaudid PF at concentration [4 ] mcg/ ml, and bupivacaine PF at concentration [ 2] mg/ml, and baclofen [ 30 ] mcg/ml. Patient will continue to use Lyrica 300 mg twice a day, Percocet 10/325 every 8 hours as needed ,as prescribed and she will follow-up in the pain clinic in 3 months for pump refill
== END ==
LOC: ORPAIN 12:29
PROVIDERS: ATTEND Specialist
DX: Z51.81 Encounter for therapeutic drug level monitoring (principal); M96.1 Postlaminectomy syndrome, not elsewhere classified; G89.29 Other chronic pain; Z88.8 Allergy status to other drugs, medicaments and biological substances
CPT/HCPCS: 62370

== ENCOUNTER → 2024-02-01 | Outpatient (CLI) | payer MEDICARE ==
[2024-02-01 13:58] VITALS: BP 118/86; PULSE 95; RESP 16; TEMP 97.1
--- NOTE | 2024-02-01 15:10 | P.PAINPG ---
PQRS Measure Charge Sheet Comment: A 58 yr old female with a history of severe and chronic LBP secondary to radiculopathy, spondylosis and facet arthropathy without myelopathy presents today for medication refills. Pain level is provoked at 6 /10 in intensity, constant, predominantly axial, localized in the lumbar spine, sharp in character without shooting pain. Pain is provoked by over activity. Pain is alleviated with medications, topical, HEP stretches daily since 2020, repositioning and rest. Interventional pain procedures completed include Pain Pump Implant (11/12/23 last refill) Patient is currently on Percocet 10/325mg #90, Aspercreme Patient denies any side effects of the medication(s), denies excessive drowsiness or sleepiness, denies suicidal ideation and reports that the current pain medication is helping to control the pain and improve activities of daily living. Patient denies any motor or sensory deficits. Patient denies any fever or night sweats, denies any change in the bowel movements or urination. Physical Examination: -Constitutional: Cooperative. Not in acute distress . - Neurologic: Cranial nerve II to XII intact. No focal neurological deficits. - Psychatric: Alert & oriented x 3. Matching mood & appropriate affect. Judgment and insight intact. - Musculoskeletal: Cervical spine: Muscle bulk/ tone/ strength in the bilateral upper extremities normal Vertebral body tenderness to palpation over Spurling test positive Distraction test positive Facet loading test positive TTP Thoracic spine Muscle bulk / tone/ strength in the bilateral paraspinal muscles normal Vertebral body tender to palpation over Facet loading test positive TTP Lumbar spine: Motor bulk/ tone/ strength lower extremities , thigh and legs : 5/5 Deep tendon reflexes : Normal Knee Jerk. Normal Ankle Jerk . Vertebral body tenderness to palpation over Muñoz Test positive Lumbar Facet Loading Test positive Straight Leg Raise: positive at 30 degrees right side/ left side Gaenslen's Test positive Sacral spine : Severe tenderness over the Sacroiliac joint: right side / left side Range of motion: Flexion of the lumbar spine <60 degrees Range of motion: Extension of the lumbar spine <20 degrees Gaenslen's Test positive right side / left side Livan test: positive right side / left side Thigh Thrust Test positive right side / left side Sacral Thrust Test positive right side / left side Assessment and plan: Chronic LBP secondary to radiculopathy, spondylosis with facet arthropathy without myelopathy Chronic and current use of high-risk medication (Opioids). The patient was counseled about risk of opioid use, psychological risk associated with opioids and was orally counseled to not overuse , divert or sell medications. Pt is to store medication in a safe location. The patient is counseled against driving while using narcotic medications and also not to use alcohol or any illicit recreational drugs. Patient verbalized understanding that the lack of compliance will result in failure to renew narcotic prescription(s) as well as possible discharge from the clinic Diagnoses, prognosis and treatment options including but not limited to physical therapy, surgical interventions, interventional therapies and medication management including narcotics and adjuvant medication were discussed. All patient questions answered . Narcotic/ Opiate agreement signed 11/09/23. UDS from 11/09/23 reviewed and consistent. MAPS reviewed and it was appropriate. Prescription refill for Percocet 10/325mg #90 w 2 RF. I have spent less than 30 minutes on patient care today. Dr Walker was available by phone for the evaluation of this patient. The time was used to review the medical records including relevant urine studies and Prescription history (MAPs), review of the available imaging, evaluation and examination of the patient, coordination of care with the medical staff and if applicable referring physicians, as well as creation of the medical record - Pain Location Bilateral Lower Back Non-Pharmacological Interventions: Heat, Ice, Inactivity, Position/Reposition, Sitting Pharmacological Interventions: Pain Pump, PRN Medication, Scheduled Medication, Topical Medication PQRS Narrative: Smoking Status Current every day smoker Narcotic Agreement Date Signed 11/09/23 Hx Alcohol Use (MH) Yes Home Medications: Ambulatory Orders ALPRAZolam [Xanax] 0.5 mg PO Q8H PRN 04/26/19 DULoxetine HCL [Cymbalta] 90 mg PO QAM 07/12/19 Celecoxib [CeleBREX] 100 mg PO PC-LUNCH 12/16/22 Naloxone HCl 0.4 mg NASAL ONCE PRN 07/29/23 Pregabalin [Lyrica] 300 mg PO BID 07/29/23 Cyclobenzaprine [Flexeril] 5 mg PO TID PRN #40 tablet 08/03/23 Sennosides/Docusate Sodium [Senna Plus 8.6-50 mg Tablet] 1 each PO DAILY PRN #20 tablet 08/03/23 Ondansetron Odt [Zofran Odt] 4 mg PO Q8HR PRN #20 tab 08/04/23 oxyCODONE-APAP 10-325MG [Percocet 10-325 mg] 1 tab PO TID PRN 30 Days #90 tab 11/09/23 Pain Pump 11/11/23 Controlled Substance Measures - Controlled Substance Measures Is patient prescribed a controlled substance at discharge?: Yes When asked, does pt state using other controlled substances?: Yes If prescribed controlled substance>3 days was MAPS reviewed?: Yes
== END ==
LOC: PNWHC3 13:21
PROVIDERS: ATTEND Specialist
DX: M47.26 Other spondylosis with radiculopathy, lumbar region (principal); F17.200 Nicotine dependence, unspecified, uncomplicated; Z79.891 Long term (current) use of opiate analgesic; Z91.041 Radiographic dye allergy status
CPT/HCPCS: 99211

== ENCOUNTER → 2024-02-04 | Day surgery (SDC) | payer MEDICARE ==
[2024-02-04 14:16] VITALS: BP 117/68; PULSE 86; RESP 14; TEMP 98.2
--- NOTE | 2024-02-04 15:06 | P.PCN ---
Date of Procedure: 02/04/24 Procedure(s) Performed: PROCEDURE: Intrathecal pain pump analysis, programming and reprogramming, and intrathecal pain pump refill PREOPERATIVE DIAGNOSES: 1. near empty intrathecal pain pump time for refill. 2. opioid tolerance 3. failed back surgery syndrome, lumbar area POSTOPERATIVE DIAGNOSES: 1. near empty intrathecal pain pump time for refill. 2. opioid tolerance 3. failed back surgery syndrome, lumbar area ANESTHESIA: None. CONDITION: Stable. INDICATION: This is 58 -year-old patient with a long history of chronic pain secondary to PLPS and with a long history of opioid tolerance. Patient previously had an intrathecal pump placed, which is now time for pump refile , and patient presents for refill today. Patient denies any side effects of the intrathecal medication, including new weakness, new numbness, excessive drowsiness or sleepiness, nausea/vomiting, weight gain, or night sweats. Patient also denies suicidal ideation, and reports that the current pain medication is helping control the chronic pain and improve the patient's activities of daily living. She'll complaining of increased pain with activity and especially during the summertime she try to be active and this will increase her pain and currently she reported that activity exacerbates her pain and she is asking if we can increase the daily dose of intrathecal pain medication, she reported that her pain level fluctuates between 6/10 to 8/10 DESCRIPTION: The intrathecal pain pump was analyzed and showed that the patient currently has reservoir volume of [13.6 ] mL. volume removed 13.1 mL The patient is receiving intrathecal Dilaudid PF at concentration [ 4 ] mcg/ ml, and bupivacaine PF at concentration [2 ] mg/ml, and baclofen [30] mcg/ml. Patient receiving daily dose of Dilaudid [ 1.26 ] mcg/day, bupivacaine [ 0.63 ] mg/day, and baclofen [ 9.4 ] mcg/day. The location of the pump (left buttock) was prepped with chlorhexidine x3, then 22-gauge needle from the [email or web address] kit was advanced through the pump port. Total of 13.1 ml was removed from the pump, and it was refilled with the new medication total volume of [40] ml of a solution containing intrathecal Dilaudid PF at concentration [4 ] mcg/ ml, and bupivacaine PF at concentration [ 2] mg/ml, and baclofen [ 30 ] mcg/ml. Patient complaining of increased pain I increase the daily dose of medication by 4% continue dose of the medication patient will receive Dilaudid 1.31 mg/day and baclofen 9.84 mg/day and bupivacaine 0.65 mg/day is equal to 4% increase in the daily dose, patient will continue to use Lyrica 300 mg twice a day, Percocet 10/325 every 8 hours as needed ,as prescribed and she will follow-up in the pain clinic in 3 months for pump refill
== END ==
LOC: ORPAIN 13:20
PROVIDERS: ATTEND Specialist
DX: M96.1 Postlaminectomy syndrome, not elsewhere classified (principal)

== ENCOUNTER → 2024-05-06 | Day surgery (SDC) | payer MEDICARE ==
[~2024-05-06] MED LIST changes: -HYDROMORPHONE FOR ANAZAO - PER 4 MG MISCELLANE ONE; +HYDROMORPHONE MISCELLANE ONE
[2024-05-06 13:06] VITALS: BP 127/72; PULSE 90; TEMP 98.6
--- NOTE | 2024-05-06 13:27 | P.PCN ---
Date of Procedure: 05/06/24 Procedure(s) Performed: PROCEDURE: Intrathecal pain pump analysis, programming and reprogramming, and intrathecal pain pump refill PREOPERATIVE DIAGNOSES: 1. near empty intrathecal pain pump time for refill. 2. opioid tolerance 3. failed back surgery syndrome, lumbar area POSTOPERATIVE DIAGNOSES: 1. near empty intrathecal pain pump time for refill. 2. opioid tolerance 3. failed back surgery syndrome, lumbar area ANESTHESIA: None. CONDITION: Stable. INDICATION: This is 58 -year-old patient with a long history of chronic pain secondary to PLPS and with a long history of opioid tolerance. Patient previously had an intrathecal pump placed, which is now time for pump refile , and patient presents for refill today. Patient denies any side effects of the intrathecal medication, including new weakness, new numbness, excessive drowsiness or sleepiness, nausea/vomiting, weight gain, or night sweats. Patient also denies suicidal ideation, and reports that the current pain medication is helping control the chronic pain and improve the patient's activities of daily living. She'll complaining of increased pain with activity and especially during the summertime she try to be active and this will increase her pain and currently she reported that activity exacerbates her pain and she is asking if we can increase the daily dose of intrathecal pain medication, she reported that her pain level fluctuates between 6/10 to 8/10 DESCRIPTION: The intrathecal pain pump was analyzed and showed that the patient currently has reservoir volume of [9.9 ] mL. volume removed 10 mL The patient is receiving intrathecal Dilaudid PF at concentration [ 4 ] mcg/ ml, and bupivacaine PF at concentration [2 ] mg/ml, and baclofen [30] mcg/ml. Patient receiving daily dose of Dilaudid [ 1.31 ] mg/day, bupivacaine [ 0.65 ] mg/day, and baclofen [ 9.8 ] mcg/day. The location of the pump (left buttock) was prepped with chlorhexidine x3, then 22-gauge needle from the [employer] kit was advanced through the pump port. Total of 13.1 ml was removed from the pump, and it was refilled with the new medication total volume of [40] ml of a solution containing intrathecal Dilaudid PF at concentration [4 ] mcg/ ml, and bupivacaine PF at concentration [ 2] mg/ml, and baclofen [ 30 ] mcg/ml. And patient will continue the current dose of the medication patient denies any side effect of the medication, will continue to receive a daily dose of Dilaudid 1.31 mg/day, daily dose of bupivacaine 0.65 mg/day and baclofen 9.8 mcg/day, patient will follow-up in the pain clinic in 3 months
== END ==
LOC: ORPAIN 12:03
PROVIDERS: ATTEND Specialist
DX: M47.816 Spondylosis without myelopathy or radiculopathy, lumbar region (principal); G89.29 Other chronic pain
CPT/HCPCS: 62370

== ENCOUNTER → 2024-05-23 | Outpatient (CLI) | payer MEDICARE ==
--- NOTE | 2024-05-23 15:37 | XR ---
EXAMINATION TYPE: XR abdomen 1V DATE OF EXAM: 05/23/2024 3:25 PM COMPARISON: 05/23/2024. CLINICAL INDICATION: Female, 59 years old with history of R14.0, R10.9; TECHNIQUE: One radiographic view of the abdomen was obtained. FINDINGS: There is a moderate stool burden, otherwise, the bowel gas pattern is nonspecific without d ilated loops of small or large bowel. . Fecal material and gas are demonstrated throughout the colon and rectum. There is no evidence for organomegaly or pneumoperitoneum. No acute osseous process. No abnormal calcifications are present. Fixation hardware in the spine. [place] present. Mild scoliosis changes. Degeneration changes and has opacified formation and joint spa ce narrowing. IMPRESSION: 1. Moderate amount stool in the colon. 2. Moderate degeneration changes with scoliosis of the spine. [facility], , 05/23/2024 3:35 PM
== END | disposition home or self-care (01) ==
LOC: RADXRMAIN 15:07
DX: R14.0 Abdominal distension (gaseous) (principal); R10.9 Unspecified abdominal pain; M19.90 Unspecified osteoarthritis, unspecified site; M41.9 Scoliosis, unspecified
CPT/HCPCS: 74018

== ENCOUNTER 2024-07-04 10:29 | Day surgery (SDC) | payer MEDICARE ==
[~2024-07-04 10:29] MED LIST changes: -BUPIVACAINE UP TO 8 MG/ML, 31-60 ML SYRINGE MC ONE; -HYDROMORPHONE MISCELLANE ONE; +LACTATED RINGERS 1,000 ML IV SCH; +LIDOCAINE 1% (10MG/ML) FOR IV START INTRADERMA PRN; -[UNRECOGNIZED DRUG - OTHER] MISCELLANE ONE
[2024-07-04] MEDS: IV FLUID CONTINUATION 1,000 ML IV ONE (10:52)
[2024-07-04 11:20] VITALS: RESP 16; TEMP 97.8
[2024-07-04] MEDS ORDERED: PROPOFOL 10 MG/ML 20 ML VIAL IV ONE (11:46)
--- NOTE | 2024-07-04 12:06 | P.PCN ---
Date of Procedure: 07/04/24 Preoperative Diagnosis: Constipation Postoperative Diagnosis: Diverticulosis Internal hemorrhoid Procedure(s) Performed: Colonoscopy Anesthesia: MAC Surgeon: Damián Pacheco Pathology: none sent Condition: stable Disposition: same day Indications for Procedure: 59-year-old female presents for colonoscopy. She has never had colonoscopy previously. She complains of recent constipation. She does have chronic opiate use. Denies any significant blood in her stool. Risks, benefits and alternatives were provided to the patient. All questions answered. Operative Findings: Diverticulosis Internal hemorrhoid Description of Procedure: The patient was brought to the endoscopy suite and placed in left lateral decubitus position and adequate sedation was achieved using conscious sedation. Digital rectal exam was performed and mild internal hemorrhoids were palpated. An endoscope was then placed in the rectum and advanced to the cecum as identified by landmarks including the appendiceal orifice and the ileocecal valve. The prep was good. The colonoscope was then slowly withdrawn, examining for any mucosal abnormalities. The cecum, ascending, transverse, descending and sigmoid colon were visualized adequately. There were no large neoplastic lesions noted throughout the colon. No obstructing mass noted. No obvious polyps. Mild amount of diverticulosis in the sigmoid colon. Hemostasis was maintained. Retroflexion was performed in the rectum and internal hemorrhoid. Excess air was removed, the colonoscope withdrawn and the procedure terminated. The patient was then transferred to the recovery unit in stable condition. Repeat colonoscopy should be performed in 10 years.
[2024-07-04 12:25] VITALS: BP 110/73; PULSE 64
== END 2024-07-04 12:51 | disposition home or self-care (01) ==
LOC: ORWHC2ENDO 10:29
PROVIDERS: ATTEND Surgery
DX: K64.8 Other hemorrhoids (principal); K57.30 Diverticulosis of large intestine without perforation or abscess without bleeding
CPT/HCPCS: 45378; J2704

== ENCOUNTER 2024-07-23 15:39 | Emergency (ER) | payer MEDICARE ==
[2024-07-23 15:44] VITALS: TEMP 97.9
--- NOTE | 2024-07-23 15:51 | ED ---
General Adult HPI - General Chief complaint: Chest Pain Stated complaint: Stomach pain/R side pain/NV Time Seen by Provider: 07/23/24 15:46 Source: patient Mode of arrival: ambulatory Limitations: no limitations - History of Present Illness Initial comments: Patient presents to the ED with her for evaluation. Patient states that she has had constant epigastric pain radiating up her chest for the past 2 days with excessive belching. Patient states that she has not been able to eat very much due to this pain. Patient states that she has been spitting up stomach acid at times, when she admits to feeling nauseated. Patient states that she h as had similar episodes over the past year, but never this bad. Patient states that she has tried taking Rolaids and Percocet for her pain with minimal relief. Patient states that she has chronic constipation due to chronic opiate use, but she denies any recent change in her bowel habits. Patient denies trauma or injury, fever or chills, headache, neck/arm/back pain, pleuritic pain, cough or cold symptoms, dyspnea, palpitations, dizziness, diaphoresis, diarrhea, hematemesis, bloody or melanotic stool, dysuria or urinary symptoms, decreased urine output, leg or calf swelling or pain, or any other symptoms or complaints. - Related Data Home Medications Medication Instructions Recorded Confirmed ALPRAZolam [Xanax] 0.5 mg PO Q8H PRN 04/26/19 07/04/24 DULoxetine HCL [Cymbalta] 60 mg PO QAM 07/12/19 07/04/24 Celecoxib [CeleBREX] 100 mg PO PC-LUNCH 12/16/22 07/04/24 Naloxone HCl 0.4 mg NASAL ONCE PRN 07/29/23 07/04/24 Pregabalin [Lyrica] 300 mg PO BID 07/29/23 07/04/24 Pain Pump 1 dose EPIDURAL DIRECTED 11/11/23 07/04/24 tiZANidine [Zanaflex] 4 mg PO BID PRN 06/28/24 07/04/24 Previous Rx's Medication Instructions Recorded oxyCODONE-APAP 10-325MG [Percocet 1 tab PO TID PRN 30 Days #90 tab 05/02/24 10-325 mg] oxyCODONE-APAP 10-325MG [Percocet 1 tab PO Q8HR PRN 30 Days #90 tab 06/27/24 10-325 mg] Omeprazole 40 mg PO DAILY #14 cap 07/23/24 Allergies Allergy/AdvReac Type Severity Reaction Status Date / Time Iodinated Contrast Media AdvReac Severe MIGRAINE Verified 07/23/24 15:44 [Iodinated Contrast Media - Oral and] Review of Systems ROS Statement: Those systems with pertinent positive or pertinent negative responses have been documented in the HPI. ROS Other: All systems not noted in ROS Statement are negative. Past Medical History Past Medical History: Musculoskeletal Disorder Additional Past Medical History / Comment(s): Hx migraines - post procedure if iodine used, DDD, chronic back pain, numbness and tingling down legs. Left leg edema in knee area and down leg, head tremors. neuropathy. hands feel cold but feel like on fire very painful. History of Any Multi-Drug Resistant Organisms: None Reported Past Surgical History: Appendectomy, Back Surgery, Tubal Ligation Additional Past Surgical History / Comment(s): Exploratory laparoscopy, w/ cyst removal and appendectomy, right oophorectomy and right salpingectomy, pain pump implant X3, pain procedures, spinal fusion with ann, cage and screws, emergency anterior neck surgery and posterior neck surgery the following day w/ hardware in July 2023 Past Anesthesia/Blood Transfusion Reactions: Motion Sickness, Postoperative Nausea & Vomiting (PONV) Past Psychological History: Anxiety, Depression Smoking Status: Current every day smoker - Past Family History Daughter(s) Family Medical History: Blood Disorder, Deep Vein Thrombosis (DVT), Pulmonary Embolus Additional Family Medical History / Comment(s): Factor V. Mother Family Medical History: Cancer, Deep Vein Thrombosis (DVT) Father Family Medical History: Cancer General Exam Limitations: no limitations General appearance: alert, in no apparent distress Head exam: Present: atraumatic Eye exam: Present: normal appearance ENT exam: Present: mucous membranes moist Neck exam: Present: other (Trachea is in midline) Respiratory exam: Present: normal lung sounds bilaterally. Absent: respiratory distress, wheezes, rales, rhonchi, stridor, chest wall tenderness Cardiovascular Exam: Present: regular rate, normal rhythm, normal heart sounds, other (Normal radial pulses bilaterally) GI/Abdominal exam: Present: soft, normal bowel sounds, other (Mild epigastric abdominal tenderness; negative Duarte's sign). Absent: distended, guarding, rebound Extremities exam: Present: other (Negative Homans' sign bilaterally). 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 Patient remains alert and breathing comfortably. Patient and are aware the patient's test results, and patient feels comfortable being discharged home at this time. She was counseled about abdominal/chest pain and GERD. She was clearly explained return and follow-up instructions. She was instructed to follow-up closely with her primary care provider. She feels comfortable with t his plan. EKG Findings - EKG Comments: EKG Findings:: ED physician interpretation (interpreted by me): Normal sinus rhythm, ventricular rate of 85 bpm, no ectopy, normal MS and QRS intervals, normal QT interval, normal axis, no ST or T wave abnormality Medical Decision Making - Medical Decision Making Was pt. sent in by a medical professional or institution ([facility], [facility], urgent care, hospital, or senior living...) When possible be specific @ -No Did you speak to anyone other than the patient for history (EMS, parent, family, police, friend...)? What history was obtained from this source @ -No Did you review nursing and triage notes (agree or disagree)? Why? @ -I reviewed and agree with nursing and triage notes Were old charts reviewed (outside hosp., previous admission, EMS record, old EKG, old radiological studies, urgent care reports/EKG's, senior living records)? Report findings @ -No old charts were reviewed Differential Diagnosis (chest pain, altered mental status, abdominal pain women, abdominal pain men, vaginal bleeding, weakness, fever, dyspnea, syncope, headache, dizziness, GI bleed, back pain, seizure, CVA, palpatations, mental health, musculoskeletal)? @ -GERD, gastritis, peptic ulcer disease, biliary disease, pancreatitis, esophagitis, esophageal spasm, chest wall pain, CAD/AL, pneumothorax, this is not meant to be a complete list. EKG interpreted by me (3pts min.). @ -As above X-rays interpreted by me (1pt min.). @ -Chest x-ray was reviewed myself and shows no acute cardiopulmonary abnormality. I agree with the radiologist's interpretation as above. CT interpreted by me (1pt min.). @ -None done U/S interpreted by me (1pt. min.). @ -None done What testing was considered but not performed or refused? (CT, X-rays, U/S, labs)? Why? @ -None What meds were considered but not given or refused? Why? @ -None Did you discuss the management of the patient with other professionals (professionals i.e. , PA, [facility], lab, RT, psych nurse, case management social worker, shirt maker, teacher, radio officer, embedded case manager)? Give summary @ -No Was smoking cessation discussed for >3mins.? @ -No Was critical care preformed (if so, how long)? @ -No Were there social determinants of health that impacted care today? How? (Homelessness, low income, unemployed, alcoholism, drug addiction, transportation, low edu. Level, literacy, decrease access to med. care, [facility], rehab)? @ -No Was there de-escalation of care discussed even if they declined (Discuss DNR or withdrawal of care, Hospice)? DNR status @ -No What co-morbidities impacted this encounter? (DM, HTN, Smoking, COPD, CAD, Cancer, CVA, ARF, Chemo, Hep., AIDS, mental health diagnosis, sleep apnea, morbid obesity)? @ -None Was patient admitted / discharged? Hospital course, mention meds given and route, prescriptions, significant lab abnormalities, going to OR and other pertinent info. @ -Patient has normal/stable vital signs in the ED. Patient's ED workup (EKG, chest x-ray and labs) is fairly unremarkable. Patient reports improvement in her symptoms with the GI cocktail that she was given in the ED. I suspect that the patient's symptoms are likely due to acid reflux, and I do not suspect an emergent medical condition at this time. Will discharge patient home with her at this time. Patient feels comfortable with this plan. Strict return and follow-up instructions were provided. Will provide the patient with a prescription for a PPI. Undiagnosed new problem with uncertain prognosis? @ -No Drug Therapy requiring intensive monitoring for toxicity (Heparin, Nitro, Insulin, Cardizem)? @ -No Were any procedures done? @ -No Diagnosis/symptom? @ -Epigastric abdominal pain, chest pain, suspected GERD Acute, or Chronic, or Acute on Chronic? @ -Acute on chronic Uncomplicated (without systemic symptoms) or Complicated (systemic symptoms)? @ -Default Side effects of treatment? @ -No Exacerbation, Progression, or Severe Exacerbation? @ -No Poses a threat to life or bodily function? How? (Chest pain, [place], AL, pneumonia, PE, COPD, DKA, ARF, appy, cholecystitis, CVA, Diverticulitis, Homicidal, Suicidal, threat to staff... and all critical care pts) @ -No - Lab Data Result diagrams: 07/23/24 16:13 07/23/24 16:13 Lab Results 07/23/24 07/23/24 07/23/24 Range/Units 16:13 16:13 16:13 WBC 11.76 H (4.50-10.00) 10*3/uL RBC 3.98 L (4.10-5.20) 10*6/uL Hgb 12.2 (12.0-15.0) g/dL Hct 35.9 L (37.2-46.3) % MCV 90.2 (80.0-97.0) fL MCH 30.7 (27.0-32.0) pg MCHC 34.0 (32.0-37.0) g/dL Plt Count 340 (140-440) 10*3/uL MPV 9.3 L (9.5-12.2) fL Immature Gran % (Auto) 0.3 % Neutrophils % 58.0 % Lymphocytes % 31.2 % Monocytes % 9.4 % Eosinophils % 0.6 % Basophils % 0.5 % Immature Gran # 0.03 (0.00-0.04) 10*3/uL Neutrophils # 6.82 (1.80-7.70) 10*3/uL Lymphocytes # 3.67 (0.90-5.00) 10*3/uL Monocytes # 1.11 H (0.20-1.00) 10*3/uL Eosinophils # 0.07 (0.04-0.35) 10*3/uL Basophils # 0.06 (0.00-0.10) 10*3/uL PT 10.4 (10.0-12.5) sec INR 0.9 (<1.2) APTT 27.3 (22.0-30.0) sec Sodium 136 L (137-145) mmol/L Potassium 4.1 (3.5-5.1) mmol/L Chloride 102 (98-107) mmol/L Carbon Dioxide 21 L (22-30) mmol/L Anion Gap 13 mmol/L BUN 20 H (7-17) mg/dL Creatinine 0.69 (0.52-1.04) mg/dL Est GFR (CKD-EPI)AfAm >90 (>60 ml/min/1.73 sqM) Est GFR (CKD-EPI)NonAf >90 (>60 ml/min/1.73 sqM) Glucose 106 H (74-99) mg/dL Calcium 9.8 (8.4-10.2) mg/dL Magnesium 1.6 (1.6-2.3) mg/dL Total Bilirubin 0.6 (0.2-1.3) mg/dL AST 23 (14-36) U/L ALT 16 (4-34) U/L Alkaline Phosphatase 100 (38-126) U/L Troponin I (0.000-0.034) ng/mL Total Protein 7.0 (6.3-8.2) g/dL Albumin 4.2 (3.5-5.0) g/dL Lipase 46 (23-300) U/L 07/23/24 Range/Units 16:13 WBC (4.50-10.00) 10*3/uL RBC (4.10-5.20) 10*6/uL Hgb (12.0-15.0) g/dL Hct (37.2-46.3) % MCV (80.0-97.0) fL MCH (27.0-32.0) pg MCHC (32.0-37.0) g/dL Plt Count (140-440) 10*3/uL MPV (9.5-12.2) fL Immature Gran % (Auto) % Neutrophils % % Lymphocytes % % Monocytes % % Eosinophils % % Basophils % % Immature Gran # (0.00-0.04) 10*3/uL Neutrophils # (1.80-7.70) 10*3/uL Lymphocytes # (0.90-5.00) 10*3/uL Monocytes # (0.20-1.00) 10*3/uL Eosinophils # (0.04-0.35) 10*3/uL Basophils # (0.00-0.10) 10*3/uL PT (10.0-12.5) sec INR (<1.2) APTT (22.0-30.0) sec Sodium (137-145) mmol/L Potassium (3.5-5.1) mmol/L Chloride (98-107) mmol/L Carbon Dioxide (22-30) mmol/L Anion Gap mmol/L BUN (7-17) mg/dL Creatinine (0.52-1.04) mg/dL Est GFR (CKD-EPI)AfAm (>60 ml/min/1.73 sqM) Est GFR (CKD-EPI)NonAf (>60 ml/min/1.73 sqM) Glucose (74-99) mg/dL Calcium (8.4-10.2) mg/dL Magnesium (1.6-2.3) mg/dL Total Bilirubin (0.2-1.3) mg/dL AST (14-36) U/L ALT (4-34) U/L Alkaline Phosphatase (38-126) U/L Troponin I <0.012 (0.000-0.034) ng/mL Total Protein (6.3-8.2) g/dL Albumin (3.5-5.0) g/dL Lipase (23-300) U/L - Radiology Data Chest x-ray: No acute cardiopulmonary disease/process. Disposition Clinical Impression: Epigastric pain, Chest pain Narrative: Suspected GERD Disposition: HOME SELF-CARE Condition: Stable Instructions (If sedation given, give patient instructions): Chest Pain (ED), Abdominal Pain (ED), GERD (Gastroesophageal Reflux Disease) (ED) Additional Instructions: Return to the ER immediately should you develop new or worsening pain, shortness of breath, feeling dizzy or faint, a fever, persistent vomiting, or new or worsening symptoms. Follow-up closely with your primary care provider. Prescriptions: Omeprazole 40 mg PO DAILY #14 cap Is patient prescribed a controlled substance at d/c from ED?: No Referrals: Mario Kunz Jr, DO [Primary Care Provider] - 1-2 days Time of Disposition: 17:23
[2024-07-23] MEDS: LIDOCAINE VISCOUS 2% 15 ML CUP PO ONE (16:13)
[2024-07-23] MEDS: ONDANSETRON 4 MG/2 ML VIAL IVP STA (16:13)
[2024-07-23] MEDS: MAG HYDROX/AL HYDROX/SIMETH 30 ML CUP PO STA (16:13)
[2024-07-23 16:21] LABS: Basophils # (A) 0.06 10*3/uL (0.00-0.10); Basophils % (A) 0.5 %; Eosinophils # (A) 0.07 10*3/uL (0.04-0.35); Eosinophils % (A) 0.6 %; HCT 35.9 % (37.2-46.3); HGB 12.2 g/dL (12.0-15.0); Lymphocytes # (A) 3.67 10*3/uL (0.90-5.00); Lymphocytes % (A) 31.2 %; MCH 30.7 pg (27.0-32.0); MCV 90.2 fL (80.0-97.0); Mean Platelet Volume 9.3 fL (9.5-12.2); Monocytes # (A) 1.11 10*3/uL (0.20-1.00); Monocytes % (A) 9.4 %; Neutrophils # (A) 6.82 10*3/uL (1.80-7.70); Platelet Count 340 10*3/uL (140-440); RBC 3.98 10*6/uL (4.10-5.20); RDW 12.3 % (11.5-14.5); WBC 11.76 10*3/uL (4.50-10.00)
[2024-07-23 16:32] LABS: ALT 16 U/L (4-34); AST 23 U/L (14-36); African American GFR (CKD) >90 (>60 ml/min/1.73 sqM); Albumin 4.2 g/dL (3.5-5.0); Alkaline Phosphatase 100 U/L (38-126); Anion Gap 13 mmol/L; Blood Urea Nitrogen 20 mg/dL (7-17); Calcium 9.8 mg/dL (8.4-10.2); Carbon Dioxide 21 mmol/L (22-30); Chloride 102 mmol/L (98-107); Glucose 106 mg/dL (74-99); INR 0.9 (<1.2); Lipase 46 U/L (23-300); Magnesium 1.6 mg/dL (1.6-2.3); Non-African American GFR(CKD) >90 (>60 ml/min/1.73 sqM); Partial Thromboplastin Time 27.3 sec (22.0-30.0); Potassium 4.1 mmol/L (3.5-5.1); Prothrombin Time 10.4 sec (10.0-12.5); Sodium 136 mmol/L (137-145); Total Bilirubin 0.6 mg/dL (0.2-1.3)
--- NOTE | 2024-07-23 16:39 | XR ---
EXAMINATION TYPE: XR chest 2V DATE OF EXAM: 07/23/2024 4:27 PM COMPARISON: Chest radiographs from 09/18/2023. CLINICAL INDICATION: Female, 59 years old with history of Chest Pain; [facility] TECHNIQUE: XR chest 2V Frontal and lateral views of the chest. FINDINGS: Lungs/Pleura: There is no evidence of pleural effusion, focal consolidation, or pneumothorax. Pulmonary vascularity: Unremarkable. Heart/mediastinum: Cardiomediastinal silhouette is unremarkable. Musculoskeletal: No acute osseous pathology. There is fixation hardware in the lower cervical spine. Other findings: None IMPRESSION: No acute cardiopulmonary disease/process. [facility], , 07/23/2024 4:37 PM
[2024-07-23 17:48] VITALS: BP 91/69; PULSE 74; RESP 18
== END 2024-07-23 17:48 | disposition home or self-care (01) ==
LOC: EC 15:39
DX: R10.13 Epigastric pain (principal); R07.9 Chest pain, unspecified; F17.200 Nicotine dependence, unspecified, uncomplicated; Z91.041 Radiographic dye allergy status
CPT/HCPCS: 36415; 93005; 80053; 83690; 83735; 84484; 85025; 85610; 85730; 71046; 99285; 96374; J2405

== ENCOUNTER → 2024-07-28 | Day surgery (SDC) | payer MEDICARE ==
[2024-07-28 13:48] VITALS: BP 105/66; PULSE 76; RESP 18; TEMP 97.7
--- NOTE | 2024-07-28 14:34 | P.PCN ---
Date of Procedure: 07/28/24 Procedure(s) Performed: PROCEDURE: Intrathecal pain pump analysis, programming and reprogramming, and intrathecal pain pump refill PREOPERATIVE DIAGNOSES: 1. near empty intrathecal pain pump time for refill. 2. opioid tolerance 3. failed back surgery syndrome, lumbar area POSTOPERATIVE DIAGNOSES: 1. near empty intrathecal pain pump time for refill. 2. opioid tolerance 3. failed back surgery syndrome, lumbar area ANESTHESIA: None. CONDITION: Stable. INDICATION: This is 58 -year-old patient with a long history of chronic pain secondary to PLPS and with a long history of opioid tolerance. Patient previously had an intrathecal pump placed, which is now time for pump refile , and patient presents for refill today. Patient denies any side effects of the intrathecal medication, including new weakness, new numbness, excessive drowsiness or sleepiness, nausea/vomiting, weight gain, or night sweats. Patient also denies suicidal ideation, and reports that the current pain medication is helping control the chronic pain and improve the patient's activities of daily living. She'll complaining of increased pain with activity and especially during the summertime she try to be active and this will increase her pain and currently she reported that activity exacerbates her pain and she is asking if we can increase the daily dose of intrathecal pain medication, she reported that her pain level fluctuates between 6/10 to 8/10 DESCRIPTION: The intrathecal pain pump was analyzed and showed that the patient currently has reservoir volume of [12.8 ] mL. volume removed 12.8] mL The patient is receiving intrathecal Dilaudid PF at concentration [ 4 ] mcg/ ml, and bupivacaine PF at concentration [2 ] mg/ml, and baclofen [30] mcg/ml. Patient receiving daily dose of Dilaudid [ 1.31 ] mg/day, bupivacaine [ 0.65 ] mg/day, and baclofen [ 9.8 ] mcg/day. The location of the pump (left buttock) was prepped with chlorhexidine x3, then 22-gauge needle from the Concard kit was advanced through the pump port. Total of 12.8 ml was removed from the pump, and it was refilled with the new medication total volume of [40] ml of a solution containing intrathecal Dilaudid PF at concentration [4 ] mcg/ ml, and bupivacaine PF at concentration [ 2] mg/ml, and baclofen [ 30 ] mcg/ml. And patient will continue the current dose of the medication patient denies any side effect of the medication, complaining of increased pain for this reason will increase the medication to Dilaudid 1.33 mg/day, daily dose of bupivacaine 0.66 mg/day and baclofen 10.03 mcg/day, is equal to 2% increase on a daily dose patient will follow-up in the pain clinic in 3 months
== END ==
LOC: ORPAIN 13:21
PROVIDERS: ATTEND Specialist
DX: M47.816 Spondylosis without myelopathy or radiculopathy, lumbar region (principal); Z45.1 Encounter for adjustment and management of infusion pump
CPT/HCPCS: 62370

== ENCOUNTER → 2024-08-01 | Outpatient (CLI) | payer MEDICARE ==
[2024-08-01 14:10] VITALS: BP 119/76; PULSE 87; RESP 16; TEMP 96.9
--- NOTE | 2024-08-03 11:01 | P.PAINPG ---
Objective - Vital Signs Vital signs: Vital Signs Temp 96.9 F L 08/01/24 14:03 Pulse 87 08/01/24 14:03 Resp 16 08/01/24 14:03 BP 119/76 08/01/24 14:03 Pulse Ox 97 08/01/24 14:03 FiO2 Intake & Output 07/31/24 08/01/24 08/01/24 18:59 06:59 18:59 Weight 72.575 kg PQRS Measure Charge Sheet Mode of Arrival: Walker Comment: A 59 yr old female with a history of severe and chronic LBP secondary to radiculopathy, spondylosis and facet arthropathy without myelopathy presents today for medication refills. Pain level is provoked at 4-8 /10 in intensity, constant, predominantly axial, localized in the lumbar spine, sharp in character without shooting pain. Pain is provoked by over activity. Pain is alleviated with medications, topical, HEP stretches daily since 2020, repositioning and rest. Interventional pain procedures completed include Pain Pump Implant (11/12/23 last refill) Patient is currently on Percocet 10/325mg #90, Aspercreme Patient denies any side effects of the medication(s), denies excessive drowsiness or sleepiness, denies suicidal ideation and reports that the current pain medication is helping to control the pain and improve activities of daily living. Patient denies any motor or sensory deficits. Patient denies any fever or night sweats, denies any change in the bowel movements or urination. Physical Examination: -Constitutional: Cooperative. Not in acute distress . - Neurologic: Cranial nerve II to XII intact. No focal neurological deficits. - Psychatric: Alert & oriented x 3. Matching mood & appropriate affect. Judgment and insight intact. - Musculoskeletal: Cervical spine: Muscle bulk/ tone/ strength in the bilateral upper extremities normal Vertebral body tenderness to palpation over Spurling test positive Distraction test positive Facet loading test positive TTP Thoracic spine Muscle bulk / tone/ strength in the bilateral paraspinal muscles normal Vertebral body tender to palpation over Facet loading test positive TTP Lumbar spine: Motor bulk/ tone/ strength lower extremities , thigh and legs : 5/5 Deep tendon reflexes : Normal Knee Jerk. Normal Ankle Jerk . Vertebral body tenderness to palpation over Muñoz Test positive Lumbar Facet Loading Test positive Straight Leg Raise: positive at 30 degrees right side/ left side Gaenslen's Test positive Sacral spine : Severe tenderness over the Sacroiliac joint: right side / left side Range of motion: Flexion of the lumbar spine <60 degrees Range of motion: Extension of the lumbar spine <20 degrees Gaenslen's Test positive right side / left side Livan test: positive right side / left side Thigh Thrust Test positive right side / left side Sacral Thrust Test positive right side / left side Assessment and plan: Chronic LBP secondary to radiculopathy, spondylosis with facet arthropathy without myelopathy Chronic and current use of high-risk medication (Opioids). The patient was counseled about risk of opioid use, psychological risk associated with opioids and was orally counseled to not overuse , divert or sell medications. Pt is to store medication in a safe location. The patient is counseled against driving while using narcotic medications and also not to use alcohol or any illicit recreational drugs. Patient verbalized understanding that the lack of compliance will result in failure to renew narcotic prescription(s) as well as possible discharge from the clinic Diagnoses, prognosis and treatment options including but not limited to physical therapy, surgical interventions, interventional therapies and medication management including narcotics and adjuvant medication were discussed. All patient questions answered . Narcotic/ Opiate agreement signed 11/09/23. UDS from 05/02/24 reviewed and consistent. MAPS reviewed and it was appropriate. Prescription refill for Percocet 10/325mg #90 w 2 RF. I have spent less than 30 minutes on patient care today. Dr Walker was available by phone for the evaluation of this patient. The time was used to review the medical records including relevant urine studies and Prescription history (MAPs), review of the available imaging, evaluation and examination of the patient, coordination of care with the medical staff and if applicable referring physicians, as well as creation of the medical record - Pain Location Bilateral Lower Back Non-Pharmacological Interventions: Chiropractic Treatment, Heat, Inactivity, Massage, Physical Therapy, Position/Reposition, Sitting Pharmacological Interventions: Block, Epidural, Pain Pump, PRN Medication, Scheduled Medication, Topical Medication PQRS Narrative: Smoking Status Current every day smoker Narcotic Agreement Date Signed 11/09/23 Blood Pressure 119/76 Pain Intensity [Bilateral 4 Lower Back] Scale Used Numeric (1 - 10) Hx Alcohol Use (MH) Yes Home Medications: Ambulatory Orders ALPRAZolam [Xanax] 0.5 mg PO Q8H PRN 04/26/19 DULoxetine HCL [Cymbalta] 60 mg PO QAM 07/12/19 Celecoxib [CeleBREX] 100 mg PO PC-LUNCH 12/16/22 Naloxone HCl 0.4 mg NASAL ONCE PRN 07/29/23 Pregabalin [Lyrica] 300 mg PO BID 07/29/23 Pain Pump 1 dose EPIDURAL DIRECTED 11/11/23 oxyCODONE-APAP 10-325MG [Percocet 10-325 mg] 1 tab PO Q8HR PRN 30 Days #90 tab 06/27/24 tiZANidine [Zanaflex] 4 mg PO BID PRN 06/28/24 Omeprazole 40 mg PO DAILY #14 cap 07/23/24 Controlled Substance Measures - Controlled Substance Measures Is patient prescribed a controlled substance at discharge?: Yes When asked, does pt state using other controlled substances?: Yes If prescribed controlled substance>3 days was MAPS reviewed?: Yes
== END ==
LOC: PNWHC3 13:45
PROVIDERS: ATTEND Specialist
DX: M47.26 Other spondylosis with radiculopathy, lumbar region (principal); Z91.041 Radiographic dye allergy status; F17.200 Nicotine dependence, unspecified, uncomplicated
CPT/HCPCS: 99211

== ENCOUNTER 2024-09-29 09:48 | Day surgery (SDC) | payer MEDICARE ==
[2024-09-29] MEDS: IV FLUID CONTINUATION 1,000 ML IV ONE ×2 (10:16→11:26)
[2024-09-29 10:34] VITALS: RESP 16; TEMP 98
[2024-09-29] MEDS: LACTATED RINGERS 1,000 ML IV SCH (10:41)
[2024-09-29] MEDS ORDERED: PROPOFOL 10 MG/ML 20 ML VIAL IV ONE (11:29)
[2024-09-29] MEDS ORDERED: LIDOCAINE 1% INJ 10MG/ML (20 ML MDV) ONE (11:29)
--- NOTE | 2024-09-29 11:45 | P.PCN ---
Date of Procedure: 09/29/24 Preoperative Diagnosis: GERD Postoperative Diagnosis: Gastritis Duodenitis Procedure(s) Performed: EGD with biopsy Anesthesia: CARIN Surgeon: Damián Pacheco Pathology: other (Biopsy of GE junction, antrum, duodenum) Condition: stable Disposition: same day Indications for Procedure: 59-year-old female with history of GERD presents for upper endoscopy. She is currently taking PPI. Plan for upper endoscopy for further evaluation. Risks, benefits and alternatives provided to the patient and all questions were answered. Operative Findings: Gastritis Duodenitis Description of Procedure: The patient was brought into the endoscopy suite and placed in left lateral decubitus position. Adequate sedation was achieved using conscious sedation. A bite-block was placed and an endoscope was placed in the oropharynx and advanced under endoscopic visualization. The endoscope was advanced through the esophagus into the stomach, through the gastric antrum and in through the pylorus. The third portion of duodenum was visualized. The endoscope was then slowly withdrawn. The first portion of duodenum was noted to have inflammatory changes. Biopsies were taken. The antrum was noted to have noted to have inflammatory pain changes. Biopsies were taken. The gastric body distended normally and the gastric folds appeared normal and flattened with insufflation. A retroflexed view of the fundus and GE junction revealed no significant hiatal hernia. GE junction appeared normal and biopsies were taken. The esophagus appeared endoscopically normal and somewhat tortuous. Excess air was removed and the scope was withdrawn and the procedure was completed. The patient was sent to PACU in stable condition.
[2024-09-29 12:58] VITALS: BP 108/68; PULSE 85
== END 2024-09-29 12:59 | disposition home or self-care (01) ==
LOC: ORWHC2ENDO 09:48
PROVIDERS: ATTEND Surgery
DX: K21.00 Gastro-esophageal reflux disease with esophagitis, without bleeding (principal); K29.50 Unspecified chronic gastritis without bleeding; K29.80 Duodenitis without bleeding; I10 Essential (primary) hypertension; F17.200 Nicotine dependence, unspecified, uncomplicated; Z79.891 Long term (current) use of opiate analgesic; Z79.899 Other long term (current) drug therapy; Z88.8 Allergy status to other drugs, medicaments and biological substances
CPT/HCPCS: 88305; 43239; J2003; J2704